=== PATIENT | male | born 1950 | race Caucasian/White ===

== ENCOUNTER 2016-04-10 08:50 | Inpatient (IN) | payer BC, OTHER ==
[~2016-04-10] VITALS: Ht 180.3 cm; Wt 78.0 kg
[2016-04-10] MEDS ORDERED: SODIUM CHLORIDE 0.9% 1000ML 1,000 ML IV STA (09:30)
[2016-04-10] MEDS ORDERED: KETOROLAC TROMETHAMINE 30 MG/ML VIAL IV STA (09:30)
[2016-04-10] MEDS ORDERED: ACETAMINOPHEN 500 MG TAB PO STA (09:30)
[2016-04-10 09:44] LABS: BASO % 0.3 %; BASO ABS # 0.01 K/uL (0-0.2); COMPLETE YES; HEMATOCRIT 42.9 % (42-52); LYMPH % 17.3 %; LYMPH ABS # 0.65 K/uL (1.2-3.4); MEAN CELL VOLUME 88.3 fL (80-100); MEAN CORPUSCULAR HEMOGLOBIN 31.3 pg (25-34); MEAN CORPUSCULAR HGB CONC 35.4 g/dl (32-36); MEAN PLATELET VOLUME 11.6 fL (7.4-10.4); MONO % 17.1 %; NEUT % 65.3 %; PLATELET COUNT 134 K/uL (130-400); RED BLOOD COUNT 4.86 M/uL (4.7-6.1); WHITE BLOOD COUNT 3.75 K/uL (4.8-10.8)
[2016-04-10 09:52] LABS: ALT/SGPT 106 U/L (12-78); AST/SGOT 47 U/L (15-37); BLOOD UREA NITROGEN 14 mg/dl (7-18); BUN/CREATININE RATIO 12.3 (10-20); CALCIUM 9.1 mg/dl (8.5-10.1); CARBON DIOXIDE 25 mmol/L (21-32); CHLORIDE 103 mmol/L (98-107); GLUCOSE 92 mg/dl (70-99); POTASSIUM 3.7 mmol/L (3.5-5.1); SODIUM 139 mmol/L (136-145)
[2016-04-10 10:01] LABS: ALKALINE PHOSPHATASE 73 U/L (45-117)
--- NOTE | 2016-04-10 10:14 | DIAGNOSTIC IMAGING REPORT ---
TWO VIEW CHEST CLINICAL HISTORY: Cough and fever. Flulike symptoms. FINDINGS: PA and lateral chest radiographs are compared to study dated 02/15/2013. The cardiomediastinal silhouette is unremarkable. Mild chronic residual thickening is unchanged. The lungs and pleural spaces are clear. There is no pneumothorax. The bony thorax appears intact. IMPRESSION: No acute cardiopulmonary abnormality. Electronically signed by: Brandon Rodriguez M.D. 04/10/2016 10:12 AM
[2016-04-10] MEDS ORDERED: HEPARIN 25000 UNIT/500 ML D5W ONE (10:31)
[2016-04-10] MEDS ORDERED: HEPARIN SOD 5000 UNIT/0.5 ML CARP ONE (10:32)
[2016-04-10] MEDS ORDERED: ASPIRIN 81 MG CHEW PO STA (10:41)
[2016-04-10] MEDS ORDERED: METOPROLOL TARTRATE 1 MG/ML VIAL IV PRN (10:45)
[2016-04-10] MEDS ORDERED: MAGNESIUM HYDROXIDE SUSP 30 ML UDC PO PRN (10:45)
[2016-04-10] MEDS ORDERED: MoRPHine SULFATE 2 MG/ML CARP IV PRN (10:45)
[2016-04-10] MEDS ORDERED: ACETAMINOPHEN 325 MG TAB PO PRN (10:45)
[2016-04-10] MEDS ORDERED: ALUMINUM/MAGNESIUM/SIMETH (MAALOX MAX) 30 ML UDC PO PRN (10:45)
[2016-04-10] MEDS ORDERED: ONDANSETRON INJ 2 MG/ML 2 ML VIAL IV PRN (10:45)
[2016-04-10 11:01] VITALS: O2SAT 99; Ht 180.3 cm; Wt 78.0 kg
[2016-04-10 11:06] LABS: PARTIAL THROMBOPLASTIN RATIO 1.5; PROTHROMBIN TIME (PATIENT) 10.8 SECONDS (9.0-12.0)
[2016-04-10 11:30] VITALS: O2SAT 96
[2016-04-10 12:18] LABS: MAGNESIUM 2.4 mg/dl (1.8-2.4); THYROID STIMULATING HORMONE 1.1 uIu/ml (0.300-4.500)
[2016-04-10 12:30] VITALS: BP 137/87; PULSE 88; TEMP 36.6; O2SAT 95
--- NOTE | 2016-04-10 13:04 | HISTORY & PHYSICAL EXAMINATION ---
DATE OF ADMISSION: 04/10/2016 CHIEF COMPLAINT: Weakness. HISTORY OF PRESENT ILLNESS: This is a 65-year-old male who presents to Emergency Room with flu-like symptoms that started about 4 days ago. The patient stated that on he had ear pain and cough. He was seen by primary care physician at [facility] on Monday. He was told that he has fluids in his ears and congestion in his sinuses and he was given Augmentin and decongestant. He denies having fever. Since Monday, his symptoms were getting worse. He was progressively weaker and achy. He continues to have cough which is nonproductive and he also has some chills and checked his temperature yesterday which was 101.0 orally. He took a dose of Tylenol. He reported diarrhea and had 3 loose bowels in the last 4 hours since this morning. He did not get a flu shot this year. He was around sick contacts. The patient also states that intermittently he had fluttering sensation in his chest and he thought he had some palpitations in the last few days. It was radiating to his left arm with associated dizziness. He also noticed that it was worse with exertion. He felt that this fluttering sensation goes away after he lays down and rests for about 1 hour. When he had seen the doctor, he did not discuss this finding. He has no history of heart disease, hypertension, diabetes, dyslipidemia, strokes. His blood pressure was little elevated when he came in but he was never put on any blood pressure medicines. REVIEW OF SYSTEMS: Negative except as above. Ten out of 14 systems were reviewed. PAST MEDICAL HISTORY: Abdominal pain, cervical disc herniation, crush injury of the finger, hyperlipidemia, kidney stones, appendectomy, bowel resection. FAMILY HISTORY: No coronary artery disease, diabetes, cancer. He does not take any medicines. SOCIAL HISTORY: Does not smoke, does not drink, and lives with . ALLERGIES: No allergies. PHYSICAL EXAMINATION: VITAL SIGNS: Temperature 37.0, pulse 108, respirations 16, blood pressure 143/86, pulse ox 98 on room air. GENERAL: Not in acute distress. HEENT: Normocephalic, atraumatic. PERRLA, EOMI. Mouth moist. Pharynx is erythematous. NECK: Tonsils are not enlarged. CHEST: Clear to auscultation bilateral. No wheezes, no rhonchi. HEART: Irregularly irregular heart rhythm, rate tachycardia. No murmurs, no gallops. ABDOMEN: Soft, nontender, nondistended. Bowel sounds present bilateral. EXTREMITIES: No clubbing, cyanosis, edema. NEUROLOGICAL: Alert, oriented x3. Motor sensory normal. Deep tendon reflexes 2+ bilateral. LYMPHATIC: No pathological lymphadenopathy. SKIN: No rash, no jaundice. MUSCULOSKELETAL: Full range of motion in all 4 extremities, no cyanosis or edema. DIAGNOSTIC INTERPRETATION: Chest x-ray normal. LABS: White count of 3.7, hemoglobin of 15.2, platelets 134. BNP is completely normal, albumin of 3.6, lipase 172. However, his troponin is 0.078 with CK-MB of less than 0.5 and AST of 47, ALT of 106. EKG: Atrial fibrillation, 106 beats per minute, no ST-T wave changes. ASSESSMENT AND PLAN: This is a 65-year-old male who comes with weakness. 1. New paroxysmal atrial fibrillation with CHADS score 0-1. Start patient on aspirin, metoprolol 25 b.i.d. as well as IV Lopressor 2.5 mg IV every 4 hours for heart rate above 100. Check echo, check TSH, check hemoglobin A1c. Admit to telemetry. Trend cardiac enzymes to rule out acute coronary syndrome. 2. Viral syndrome with possible bronchitis. Place patient on amoxicillin. Chest x-ray is clear for any pneumonia. Tylenol p.r.n. fever. 3. Deep venous thrombosis and gastrointestinal prophylaxis. The patient is a full code. TIME SPENT ON DOING THIS ADMISSION: 40 minutes.
[2016-04-10] MEDS: SODIUM CHLORIDE 0.9% 1000ML 1,000 ML IV SCH (13:32)
[2016-04-10] MEDS: METOPROLOL TARTRATE 25 MG TAB PO SCH ×2 (14:07→22:10)
[2016-04-10] MEDS: AMOXICILLIN 500 MG CAP PO SCH ×2 (14:07→22:11)
[2016-04-10 15:51] VITALS: BP 89/55; PULSE 71; TEMP 36.6; O2SAT 96
--- NOTE | 2016-04-10 17:00 | EMERGENCY ROOM VISIT NOTE ---
History First contact with patient: :06 Chief Complaint: FLU LIKE SX Stated Complaint: FLU History of Present Illness Patient is an otherwise healthy 38-year-old white male who presents to emergency department for evaluation of flulike symptoms over the last 4 days. He states is a symptoms started last with ear pain and a cough. He was seen by his primary care provider at [facility] on Monday. He was told he had "fluid in his ears, and congestion in his sinuses" they thought he was coming down with the flu, however placed him on Augmentin and a decongestant. He did not have a fever at that time. Since his appointment on Monday, he states that he is "getting worse. He feels weak and generally achy. He continues to have a cough which is nonproductive. He has been chilled and just started checking his temperature yesterday and noted it to be 101F orally. He took a dose of Tylenol for this. He now reports diarrhea, and has had 3 loose, watery bowel movements without blood in the 4 hours that he has been awake since this morning. He did not get a flu shot this year. He has been visiting family members who have been hospitalized recently. Patient also notes that for the last 2-3 weeks he has intermittently been experiencing fluttering in his chest with pain radiating into his left arm with associated dizziness. This can occur at rest or with exertion. He typically goes away after he lays down and rests for about an hour. He did not discuss this with his doctor when he was at the office previously. He denies a prior history of heart disease, heart murmur, hypertension or dyslipidemia. He does note that his blood pressure was slightly elevated when he was in the doctor's office, but they told him likely due to his illness. He denies any associated nausea or vomiting. No radiation of the pain to the neck or back. Review of Systems Review of systems as per HPI. All other systems reviewed were negative. 10 systems reviewed. Past Medical/Surgical History Medical Problems: (1) Abdominal pain of unknown etiology (2) Afib (3) Cervical disc herniation (4) Crush injury to finger (5) Finger laceration (6) Hyperlipidemia Nec/Nos (7) Kidney stones Surgical Problems: (1) History of appendectomy (2) History of bowel resection (3) Post-operative state Electronic medical records are reviewed and summarized as above/below. See Problem List. Family History Patient reports no known family medical history. Social History Smoking Status: Never Smoker Alcohol Use: none Drug Use: none Marital Status: Housing Status: lives with significant other Occupation Status: retired Current/Historical Medications No Active Prescriptions or Reported Meds Allergies Coded Allergies: No Known Allergies (Unverified , 04/10/16) Physical Exam Vital Signs Date Time Temp Pulse Resp B/P Pulse Ox O2 Delivery O2 Flow Rate FiO2 04/10/16 10:01 108 04/10/16 09:56 103 16 143/86 99 04/10/16 09:00 37.0 102 18 112/63 97 Room Air Physical Exam CONSTITUTIONAL: Patient is an ill although nontoxic-appearing 65-year-old white male who is awake and alert and in no acute distress. Temperature is 37C orally. Blood pressure 121/63, heart rate 102. EYES: Pupils equal, round, reactive to light and accommodation. EOMs intact without nystagmus. Sclera are anicteric. ENT: Tympanic membranes intact, with normal landmarks. External canals are clear. Oral and nasopharynx are clear. Mucous membranes are moist, no lesions , tongue and gums appear normal. NECK: No bruits auscultated. Supple without lymphadenopathy. No thyromegaly. No meningeal signs. Full active range of motion without discomfort. CARDIOVASCULAR: Regularly irregular, suspected soft KULDEEP. No carotid bruits auscultated. No JVD. Peripheral pulses easy to palpable. RESPIRATORY: Breath sounds equal and clear to auscultation without wheezes, rales, or rhonchi heard. Full and equal chest expansion without accessory muscle use or retractions. GI: Bowel sounds are present. Abdomen is soft, nontender, nondistended. No organomegaly. No pulsatile masses. No guarding or rebound. MUSCULOSKELETAL: Full range of motion of extremities x 4 with good strength. No cyanosis, edema, joint tenderness or swelling. No deformity. INTEGUMENTARY: No lesions or rash, normal skin turgor. NEUROLOGICAL: Alert, oriented, and cooperative. Cranial nerves, sensation and strength grossly intact. Pupils round, equal, and react to light, EOMs are full. LYMPH: No lymphadenopathy. Medical Decision & Procedures ER Provider Diagnostic Interpretation: TWO VIEW CHEST CLINICAL HISTORY: Cough and fever. Flulike symptoms. FINDINGS: PA and lateral chest radiographs are compared to study dated 02/15/2013. The cardiomediastinal silhouette is unremarkable. Mild chronic residual thickening is unchanged. The lungs and pleural spaces are clear. There is no pneumothorax. The bony thorax appears intact. IMPRESSION: No acute cardiopulmonary abnormality. Laboratory Results 04/10/16 09:12 Red Blood Count 4.86, Mean Corpuscular Volume 88.3, Mean Corpuscular Hemoglobin 31.3, Mean Corpuscular Hemoglobin Concent 35.4, Mean Platelet Volume 11.6, Neutrophils (%) (Auto) 65.3, Lymphocytes (%) (Auto) 17.3, Monocytes (%) (Auto) 17.1, Eosinophils (%) (Auto) 0.0, Basophils (%) (Auto) 0.3, Neutrophils # (Auto ) 2.45, Lymphocytes # (Auto) 0.65, Monocytes # (Auto) 0.64, Eosinophils # (Auto ) 0.00, Basophils # (Auto) 0.01 04/10/16 09:12 Test 04/10/16 09:08 04/10/16 09:12 04/10/16 09:30 Influenza Type A Antigen Neg for Influ A (NEG) Influenza Type B Antigen Neg for Influ B (NEG) White Blood Count 3.75 K/uL (4.8-10.8) Red Blood Count 4.86 M/uL (4.7-6.1) Hemoglobin 15.2 g/dL (14.0-18.0) Hematocrit 42.9 % (42-52) Mean Corpuscular Volume 88.3 fL (80-100) Mean Corpuscular Hemoglobin 31.3 pg (25-34) Mean Corpuscular Hemoglobin Concent 35.4 g/dl (32-36) Platelet Count 134 K/uL (130-400) Mean Platelet Volume 11.6 fL (7.4-10.4) Neutrophils (%) (Auto) 65.3 % Lymphocytes (%) (Auto) 17.3 % Monocytes (%) (Auto) 17.1 % Eosinophils (%) (Auto) 0.0 % Basophils (%) (Auto) 0.3 % Neutrophils # (Auto) 2.45 K/uL (1.4-6.5) Lymphocytes # (Auto) 0.65 K/uL (1.2-3.4) Monocytes # (Auto) 0.64 K/uL (0.11-0.59) Eosinophils # (Auto) 0.00 K/uL (0-0.5) Basophils # (Auto) 0.01 K/uL (0-0.2) RDW Standard Deviation 40.4 fL (36.4-46.3) RDW Coefficient of Variation 12.6 % (11.5-14.5) Immature Granulocyte % (Auto) 0.0 % Immature Granulocyte # (Auto) 0.00 K/uL (0.00-0.02) Prothrombin Time 10.8 SECONDS (9.0-12.0) Prothromb Time International Ratio 1.0 (0.9-1.1) Activated Partial Thromboplast Time 40.1 SECONDS (21.0-31.0) Partial Thromboplastin Ratio 1.5 Anion Gap 11.0 mmol/L (3-11) Est Creatinine Clear Calc Drug Dose 74.3 ml/min Estimated GFR () 82.4 Estimated GFR (Non- 71.1 BUN/Creatinine Ratio 12.3 (10-20) Calcium Level 9.1 mg/dl (8.5-10.1) Magnesium Level 2.4 mg/dl (1.8-2.4) Total Bilirubin 0.4 mg/dl (0.2-1) Aspartate Amino Transf (AST/SGOT) 47 U/L (15-37) Alanine Aminotransferase (ALT/SGPT) 106 U/L (12-78) Alkaline Phosphatase 73 U/L (45-117) Total Creatine Kinase 97 U/L (39-308) Creatine Kinase MB < 0.5 ng/ml (0.5-3.6) Troponin I 0.078 ng/ml (0-0.045) Total Protein 7.1 gm/dl (6.4-8.2) Albumin 3.6 gm/dl (3.4-5.0) Globulin 3.5 gm/dl (2.5-4.0) Albumin/Globulin Ratio 1.0 (0.9-2) Lipase 172 U/L (73-393) Thyroid Stimulating Hormone (TSH) 1.100 uIu/ml (0.300-4.500) Hepatitis C Antibody Screen NEG (NEG) Creatine Kinase MB Ratio (0-3.0) Medications Administered Medications (Trade) Dose Ordered Sig/[facility] Route Start Time Stop Time Status Last Admin Dose Admin Sodium Chloride (Nss 1000ml) 1,000 ml @ 999 mls/hr Q1H1M STAT IV 04/10/16 09:30 04/10/16 10:30 DC 04/10/16 09:30 999 MLS/HR Ketorolac Tromethamine (Toradol Inj) 30 mg NOW STAT IV 04/10/16 09:30 04/10/16 09:35 DC 04/10/16 09:52 30 MG Acetaminophen (Tylenol Tab) 1,000 mg NOW STAT PO 04/10/16 09:30 04/10/16 09:35 DC 04/10/16 09:52 1,000 MG Heparin Sodium/ Dextrose (Heparin 25,000 Unit/500ml D5W) 25,000 unit STK-MED ONCE .ROUTE 04/10/16 10:31 04/10/16 10:32 DC 04/10/16 10:57 25,000 UNIT Heparin Sodium (Porcine) 5000 unit 5,000 unit STK-MED ONCE .ROUTE 04/10/16 10:32 04/10/16 10:33 DC 04/10/16 10:56 5,000 UNIT Sodium Chloride (Nss 1000ml) 1,000 ml @ 75 mls/hr [id number] IV 04/10/16 10:41 05/10/16 10:40 04/10/16 13:32 75 MLS/HR Aspirin (Aspirin Chew) 324 mg NOW STAT PO 04/10/16 10:41 04/10/16 10:55 DC 04/10/16 11:59 324 MG ECG Indication: chest pain, palpitations Rate (beats per minute): 106 Rhythm: atrial fibrillation Change: New onset Afib ED Course The patient was seen and evaluated as above. Old records are reviewed. He presents the emergency department for evaluation of a febrile upper respiratory illness that started about 4 days ago. He notes progressively worsening weakness, body and muscle aches, and diarrhea. He also notes a 2-3 week history of some fluttering in the left side of his chest with pain into his left arm and dizziness. IV access was obtained. The patient was placed on a quality assurance monitor body and EKG was performed. He was hydrated with normal saline solution and medicated with Toradol 30 mg IV and acetaminophen 1 g by mouth. Laboratory studies were performed including influenza swab, cardiac enzymes, lipase, CBC with differential, and CMP. Patient's EKG noted a atrial fibrillation at 106 beats per minute. This A. fib is new on review of his prior EKGs. His rate was controlled, and he was hemodynamically stable and did not have any chest pain while in the emergency department. Laboratory studies revealed a white count of 3700. Electrolytes are within normal limits. He has slight elevation of his AST and ALT, with normal remaining liver functions. CK and CK-MB are normal, troponin is elevated at 0.078. Lipase is not indicative of acute pancreatitis. Influenza swab was negative. Chest x-ray did not show any evidence for focal consolidation or pneumonia. All laboratory and diagnostic imaging studies were reviewed with attending physician. He presents to the emergency department for evaluation of a febrile , influenza-like syndrome and was found to be in a new onset A. fib with elevated troponin. Differential diagnoses entertained include viral illness, pneumonia, bronchitis, CHF, ACS, acute IN, unstable angina, unstable arrhythmia , among others. [facility] He was ordered heparin in the emergency department, but this was canceled by the admitting service. Medical Decision See ED Course. Impression Primary Impression: New onset atrial fibrillation Additional Impressions: Elevated troponin, Influenza-like illness Departure Information Prescriptions No Active Prescriptions or Reported Meds Referrals Marcel Houston M.D. (PCP) Patient Instructions A Signature Page, My [facility]
[2016-04-10 19:17] VITALS: BP 128/94; PULSE 83; TEMP 36.9; O2SAT 95
[2016-04-10 23:39] VITALS: BP 125/81; PULSE 70; TEMP 37; O2SAT 98
[2016-04-11] MEDS: SODIUM CHLORIDE 0.9% 1000ML 1,000 ML IV SCH (02:18)
[2016-04-11 04:08] VITALS: BP 111/67; PULSE 92; TEMP 36.7; O2SAT 95
[2016-04-11 07:04] LABS: BASO % 0.3 %; BASO ABS # 0.01 K/uL (0-0.2); COMPLETE YES; EOS % 0.6 %; HEMATOCRIT 45.1 % (42-52); LYMPH % 38.9 %; LYMPH ABS # 1.32 K/uL (1.2-3.4); MEAN CELL VOLUME 88.6 fL (80-100); MEAN CORPUSCULAR HEMOGLOBIN 30.5 pg (25-34); MEAN CORPUSCULAR HGB CONC 34.4 g/dl (32-36); MEAN PLATELET VOLUME 11.3 fL (7.4-10.4); NEUT % 45.2 %; PLATELET COUNT 135 K/uL (130-400); RED BLOOD COUNT 5.09 M/uL (4.7-6.1); WHITE BLOOD COUNT 3.39 K/uL (4.8-10.8)
[2016-04-11 07:15] LABS: PARTIAL THROMBOPLASTIN RATIO 1.5
[2016-04-11 07:40] LABS: BUN/CREATININE RATIO 13.2 (10-20); CALCIUM 8.5 mg/dl (8.5-10.1); POTASSIUM 3.9 mmol/L (3.5-5.1)
[2016-04-11 07:46] VITALS: BP_SYST 107; BP_SYST 131; BP_DIAS 100; BP_DIAS 87; PULSE 69; TEMP 36.8; O2SAT 95
[2016-04-11 08:07] LABS: ESTIMATED AVERAGE GLUCOSE 111 mg/dl; HA1C FLAG Normal (Normal)
[2016-04-11] MEDS: AMOXICILLIN 500 MG CAP PO SCH (08:38)
[2016-04-11] MEDS: METOPROLOL TARTRATE 25 MG TAB PO SCH (08:39)
[2016-04-11] MEDS ORDERED: ASPIRIN 81 MG ECTAB PO SCH (09:00)
[2016-04-11] MEDS ORDERED: LPR25 PO (10:27)
[2016-04-11] MEDS ORDERED: AMX500 PO (10:27)
[2016-04-11] MEDS ORDERED: ASPEC81 PO (10:27)
--- NOTE | 2016-04-11 10:29 | Discharge Instructions ---
Discharge Instructions Admission Reason for Admission: AFIB Discharge Discharge Diagnosis / Problem: afib, bronchitis Discharge Goals Goal(s): Increase independence, Improve disease control, Diagnostic testing, Therapeutic intervention Activity Recommendations Activity Limitations: resume your previous activity Lifting Limitations: until after follow-up appointment Exercise/Sports Limitations: as tolerated Shower/Bathe: no limitations . Instructions / Follow-Up Instructions / Follow-Up start aspirin and metoprolol finish oral antibiotics eat yogurts three times a day to prevent diarrhea associated with antibiotics Current Hospital Diet Patient's current hospital diet: AHA Diet (Heart Healthy) Discharge Diet Recommended Diet: Regular Diet Pending Studies Studies pending at discharge: no Laboratory Results Hemoglobin A1c Test 04/10/16 09:12 Range/Units Estimated Average Glucose 111 mg/dl Hemoglobin A1c 5.5 4.5-5.6 % Medical Emergencies . Who to Call and When: Medical Emergencies: If at any time you feel your situation is an emergency, please call 911 immediately. . Non-Emergent Contact Non-Emergency issues call your: Primary Care Provider . Past History Medical & Surgical History: (1) Bronchitis (2) Afib . "Provider Documentation" section prepared by Brandon Bell. VTE Core Measure Inpt VTE Proph given/why not?: Unfractionated heparin SQ
--- NOTE | 2016-04-11 10:34 | Discharge Summary ---
Discharge Summary Admission Date: Apr 10, 2016 at 10:44 Discharge Date: Apr 11, 2016 Discharge Disposition: Home Principal Diagnosis: afib, brinchitis Problems/Secondary Diagnoses: (1) Kidney stones Status: Chronic Immunizations: Have You Had Influenza Vaccine: No History of Tetanus Vaccine?: UTD History of Pneumococcal: No History of Hepatitis B Vaccine: No Medication Reconciliation New Medications: Amoxicillin (Amoxicillin) 500 Mg Cap 500 MG PO TID, #15 CAP Aspirin (Aspirin EC Low Dose) 81 Mg Ectab 81 MG PO QAM, #90 TAB Metoprolol Tartrate (Lopressor) 25 Mg Tab 25 MG PO BID, #120 TAB 3 Refills Referrals At Discharge Follow up Referrals: Physician Referral - Within 2 Weeks with Marcel Houston M.D. Discharge Exam Review of Systems: Constitutional: No chills ENT: No unusual epistaxis Respiratory: No sputum Cardiovascular: No orthopnea Abdomen: No nausea Genitourinary - Male: No hematuria, No urinary frequency Neurologic: No memory loss Endocrine: No fatigue Physical Exam: General Appearance: WD/WN, no apparent distress Eyes: normal inspection, EOMI ENT: hearing grossly normal, pharynx normal Neck: supple, no JVD Respiratory/Chest: chest non-tender, normal breath sounds Cardiovascular: no edema, no gallop Abdomen / GI: non tender, no organomegaly Extremities: normal inspection, no calf tenderness Neurologic/Psychiatric: no motor/sensory deficits, alert, normal mood/affect Skin: normal color, warm/dry Hospital Course A 65 yo male comes with cough and palpitations afib on EKG with mild troponin elevation noticed He converted to NSR this am with po metoprolol his CHADs is 0-1, d/c on ASA 81 mg daily ECHO is pending on discharge f/u PCP 2 weeks, f/u cards in 3-4 weeks if needed Total Time Spent: Greater than 30 minutes This includes examination of the patient, discharge planning, medication reconciliation, and communication with other providers. Discharge Instructions Please refer to the electronic Patient Visit Report (Discharge Instructions) for additional information. Additional Copies To Marcel Houston M.D.
[2016-04-11 10:43] VITALS: BP 131/87; PULSE 69; TEMP 36.8; O2SAT 95
--- NOTE | 2016-04-11 16:35 | ECHOCARDIOGRAM REPORT ---
*NOTICE TO RECEIVING REPUBLICAN AGENCY This information is strictly Confidential and protected under [place] law. [place] law prohibits you from making any further disclosure of this information unless further disclosure is expressly permitted by the written consent of the person to whom it pertains or is authorized by law. A general authorization for the release of medical or other information is not sufficient for this purpose. Hospital accepts no responsibility if the information is made available to any other person, INCLUDING THE PATIENT. Interpretation Summary * Name: MIRIAM DENNY Study Date: 04/11/2016 07:30 AM BP: 131/87 mmHg * Patient Location: [id number].[id number]\E208\S\1 HR: 69 * : 1950 (M/d/yyyy) Gender: Male Height: 72 in * Age: 65 yrs Ethnicity: CA Weight: 174 lb * Ordering Physician: Brandon Bell * Referring Physician: Self, Referred * Performed By: Lilly Rodriguez RCS * * Reason For Study: A-FIB * BSA: 2.0 m2 * -- Conclusions -- * 1. Normal LV size, borderline concentric LVH. * 2. Normal LV systolic function. LVEF 60-65%. No regional wall motion abnormalities. * 3. Normal RV size and function. * 4. No significant valvular pathology * 5. Diastolic dysfunction. * 6. Normal estimated RA and PA pressures. * 7. Compared with prior study on 02/28/2012: No significant changes. Procedure Details * A complete two-dimensional transthoracic echocardiogram was performed (2D, M-mode, Doppler and color flow Doppler). Left Ventricle * The left ventricle is grossly normal size. * There is borderline concentric left ventricular hypertrophy. * Ejection Fraction = 60-65%. * Diastolic dysfunction * No regional wall motion abnormalities noted. Right Ventricle * The right ventricle is grossly normal size. * The right ventricular systolic function is normal as assessed by tricuspid annular plane systolic excursion (TAPSE) (normal >1.5 cm). Atria * The left atrial size is normal. * The right atrium is borderline dilated. * No ASD detected; PFO is not assessed. Mitral Valve * The mitral valve is grossly normal. * There is trace mitral regurgitation. Tricuspid Valve * The tricuspid valve is not well visualized, but is grossly normal. * There is trace tricuspid regurgitation. Aortic Valve * The aortic valve opens well. * The aortic valve is tricuspid. The leaflet thickness if normal. There is no aortic stenosis, and no significant insufficiency. * No hemodynamically significant valvular aortic stenosis. * There is no significant aortic regurgitation. Pulmonic Valve * The pulmonary valve is inadequately visualized, but the Doppler data is adequate for interpretation. * Trace pulmonic valvular regurgitation. Great Vessels * The aortic root and proximal ascending aorta are normal sized. * No Doppler or imaging evidence of an aortic coarctation. Pericardium/Pleural * There is no pericardial effusion. Great Vessels * There is no evidence of pulmonary hypertension. The PA systolic pressure is less than 36 mmHg. * Normal inferior vena cava size and collapsability with sniff indicates a normal right atrial pressure of 3 mmHg MMode 2D Measurements and Calculations IVSd 1.0 cm IVSs 1.4 cm LVIDd 4.5 cm LVIDs 3.1 cm LVPWd 1.1 cm LVPWs 1.4 cm IVS/LVPW 0.94 FS 29.8 % EDV(Teich) 90.2 ml ESV(Teich) 38.7 ml EF(Teich) 57.1 % EDV(cubed) 88.3 ml ESV(cubed) 30.6 ml EF(cubed) 65.4 % % IVS thick 31.9 % % LVPW thick 28.1 % LV mass(C)d 167.4 grams LV mass(C)dI 83.3 grams/m\S\2 LV mass(C)s 148.5 grams LV mass(C)sI 73.9 grams/m\S\2 CO(Teich) 5.6 l/min CI(Teich) 2.8 l/min/m\S\2 SV(Teich) 51.5 ml SI(Teich) 25.7 ml/m\S\2 CO(cubed) 6.3 l/min CI(cubed) 3.1 l/min/m\S\2 SV(cubed) 57.8 ml SI(cubed) 28.8 ml/m\S\2 Ao root diam 3.8 cm Ao root area 11.1 cm\S\2 ACS 2.1 cm LA dimension 3.6 cm LA/Ao 0.97 LVAd ap4 26.9 cm\S\2 LVLd ap4 7.7 cm EDV(MOD-sp4) 77.0 ml LVAs ap4 14.6 cm\S\2 LVLs ap4 6.2 cm ESV(MOD-sp4) 31.0 ml EF(MOD-sp4) 59.7 % LVAd ap2 28.1 cm\S\2 LVLd ap2 8.4 cm EDV(MOD-sp2) 80.0 ml LVAs ap2 15.8 cm\S\2 LVLs ap2 6.8 cm ESV(MOD-sp2) 32.0 ml EF(MOD-sp2) 60.0 % CO(MOD-sp4) 5.0 l/min CI(MOD-sp4) 2.5 l/min/m\S\2 SV(MOD-sp4) 46.0 ml SI(MOD-sp4) 22.9 ml/m\S\2 CO(MOD-sp2) 5.2 l/min CI(MOD-sp2) 2.6 l/min/m\S\2 SV(MOD-sp2) 48.0 ml SI(MOD-sp2) 23.9 ml/m\S\2 Doppler Measurements and Calculations MV E max consuelo 60.3 cm/sec MV A max consuelo 25.0 cm/sec MV E/A 2.4 MV P1/2t max consuelo 74.7 cm/sec MV P1/2t 60.2 msec MVA(P1/2t) 3.7 cm\S\2 MV dec slope 363.7 cm/sec\S\2 MV dec time 0.18 sec Ao V2 max 100.3 cm/sec Ao max PG 4.1 mmHg Ao max PG (full) 2.2 mmHg LV V1 max PG 1.9 mmHg LV V1 max 67.0 cm/sec PA V2 max 96.6 cm/sec PA max PG 3.8 mmHg PI max consuelo 161.8 cm/sec PI max PG 10.5 mmHg PI dec slope 168.9 cm/sec\S\2 PI P1/2t 280.6 msec TR max consuelo 198.0 cm/sec
[2017-04-07] MEDS ORDERED: OXYC1TAB3 PO (14:04)
== END 2016-04-11 11:23 | disposition home or self-care (01) | DRG 310 ==
LOC: ENRESERVTM → ENRESERVDT → C.EDB 08:53 → C.2E 10:44
PROVIDERS: ADMIT Hospitalist; ATTEND Hospitalist
DX: I48.0 Paroxysmal atrial fibrillation (principal); E78.5 Hyperlipidemia, unspecified; N20.0 Calculus of kidney; J40 Bronchitis, not specified as acute or chronic

== ENCOUNTER 2017-04-07 11:32 | Emergency (ER) | payer BC ==
[~2017-04-07] VITALS: Ht 180.3 cm; Wt 83.0 kg
[~2017-04-07 11:32] MED LIST: AMX500 PO; ASPI-320 PO; LPR25 PO
[2017-04-07 11:37] VITALS: TEMP 36.7; Ht 180.3 cm; Wt 83.0 kg
[2017-04-07] MEDS ORDERED: LIDOCAINE 1% BUFFERED INJ 20 ML VIAL INFIL STA (11:52)
[2017-04-07] MEDS ORDERED: BUPIVACAINE 0.5 % 5 MG/1 ML MPF 30ML VIAL INFIL STA (11:52)
[2017-04-07] MEDS ORDERED: AMOX500C3 PO (11:53)
--- NOTE | 2017-04-07 12:33 | DIAGNOSTIC IMAGING REPORT ---
LEFT THIRD FINGER 3 VIEWS CLINICAL HISTORY: Third finger laceration. FINDINGS: 3 views of the left third finger are correlated with left hand radiographs dated 06/30/2015. The skeletal structures are well mineralized. No fracture is seen. Mild osteoarthritic change is present at the distal interphalangeal joint. The joint spaces of the third finger are otherwise maintained. Soft tissue edema is present in the third digit, with a cutaneous injury suggested distally. No radiodense foreign body is seen. IMPRESSION: Soft tissue edema and cutaneous injury with no acute bony abnormality seen in the left third finger. Electronically signed by: Brandon Rodriguez M.D. 04/07/2017 12:32 PM Dictated Date/Time: 04/07/2017 12:31 PM
[2017-04-07] MEDS ORDERED: CEPH500C PO (14:02)
[2017-04-07] MEDS ORDERED: OXYC-90 PO (14:04)
--- NOTE | 2017-04-07 14:05 | EMERGENCY ROOM VISIT NOTE ---
ED Visit Note First contact with patient: 11:51 CHIEF COMPLAINT: Finger laceration HISTORY OF PRESENT ILLNESS: This 66-year-old, right hand dominant male patient presents to the emergency department, ambulatory, after cutting the left index and middle fingers on a table saw. The patient was lining up the wood to go through the table saw, when he accidentally bumped the on/off switch. He turned. On, and his finger got caught in the saw blade. The bleeding has not stopped. Denies weakness or numbness of the finger. The patient has full range of motion of the fingers. The patient rates the pain as severe and 10/10. The patient denies any other injuries. The patient's tetanus shot is up to date. REVIEW OF SYSTEMS: A 6 system review of systems was completed with positives and pertinent negatives listed in the HPI. ALLERGIES: Augmentin MEDICATIONS: Metoprolol, aspirin PMH: Hypertension SOCIAL HISTORY: The patient lives locally with family. He denies drug, alcohol , tobacco use. PHYSICAL EXAM: Vital Signs: Reviewed Nurse's notes, vital signs stable. GENERAL : This is a 66-year-old white male, in no acute distress, well developed, well nourished. SKIN: There is a 2 cm long irregularly-shaped laceration on the anterior/medial aspect of the left middle finger. There is a 1 cm long more superficial laceration on the distal end of the right index finger, through the nail, and affecting the distal aspect of the nailbed. The edges of both wounds gape apart with traction. There is no foreign material in the wound and it looks clean. There is moderate bleeding. No deep structures such as tendons, bones, or significant blood vessels are seen in the base of the wound. Extension and flexion of the finger is full and strong. Full range of motion of the wrist and other fingers. Capillary refill less than 2 seconds. Normal sensation to light and sharp touch. RADIOLOGY: LEFT THIRD FINGER 3 VIEWS CLINICAL HISTORY: Third finger laceration. FINDINGS: 3 views of the left third finger are correlated with left hand radiographs dated 06/30/2015. The skeletal structures are well mineralized. No fracture is seen. Mild osteoarthritic change is present at the distal interphalangeal joint. The joint spaces of the third finger are otherwise maintained. Soft tissue edema is present in the third digit, with a cutaneous injury suggested distally. No radiodense foreign body is seen. IMPRESSION: Soft tissue edema and cutaneous injury with no acute bony abnormality seen in the left third finger. Electronically signed by: Brandon Rodriguez M.D. 04/07/2017 12:32 PM Dictated Date/Time: 04/07/2017 12:31 PM EMERGENCY DEPARTMENT COURSE: I examined the patient. Verbal consent was obtained to perform the procedure. Using sterile technique the wound was cleansed with Betadine. 10 ml of 1% buffered lidocaine with 0.5% Bupivacaine was used to perform a digital block of the 2nd and 3rd digits of the left hand to anesthetize the patient. The area was sterilely draped. Once the patient was anesthetized, the wound was copiously irrigated under pressure with sterile saline. The patient did complain of some pain, despite anesthesia, so the wounds were locally anesthetized prior to suturing. The wounds were explored and there were no deep structures injured. The laceration on the index finger was repaired using 4 simple interrupted 5-0 nylon sutures and 1 subcuticular 5- 0 Vicryl suture on the nailbed. The laceration on the middle finger was repaired using 14 simple interrupted 5-0 nylon sutures. The patient tolerated the procedure well. Hemostasis was achieved. The area was cleaned with sterile saline and dressed with bacitracin ointment and bandage. The patient was discharged home in good condition. I did stress the need for close follow- up with his PCP. I attest that I have personally reviewed the patient's current medication list. Patient was found to have normal blood pressure on screening and does not require follow-up. DIFFERENTIAL DIAGNOSIS: Laceration, fracture, contusion, open fracture, abrasion , avulsion, and others DIAGNOSIS: Finger laceration of the left second and third digits Problem List Medical Problems: (1) Abdominal pain of unknown etiology Status: Resolved (2) Cervical disc herniation Status: Resolved (3) Crush injury to finger Status: Resolved (4) Finger laceration Status: Resolved (5) Hyperlipidemia Nec/Nos Status: Resolved (6) Kidney stones Status: Chronic Surgical Problems: (1) History of appendectomy Status: Resolved (2) History of bowel resection Status: Resolved (3) Post-operative state Status: Resolved Current/Historical Medications Scheduled Amoxicillin (Amoxil), 500 MG PO TID Aspirin (Aspirin EC Low Dose), 81 MG PO QAM Cephalexin Monohydrate (Keflex), 500 MG PO TID Metoprolol Tartrate (Lopressor), 25 MG PO BID Scheduled PRN Oxycodone Ir (Roxicodone Ir), 1 TAB PO Q4H PRN for Pain Allergies Coded Allergies: Amoxicillin (Unverified Allergy, Unknown, GI ISSUES/VOMITING, 04/07/17) Clavulanic Acid (Unverified Allergy, Unknown, GI ISSUES/VOMITING, 04/07/17 ) Vital Signs Date Time Temp Pulse Resp B/P (MAP) Pulse Ox O2 Delivery O2 Flow Rate FiO2 04/07/17 14:22 72 20 125/64 99 04/07/17 13:30 85 20 135/74 95 Room Air 04/07/17 11:37 36.7 68 18 150/80 98 Room Air Departure Information Impression Primary Impression: Laceration of finger Additional Impression: Laceration of right index finger w/o foreign body with damage to nail Dispostion Home / Self-Care Condition GOOD Prescriptions Oxycodone Ir (Roxicodone Ir) 5 Mg Tab 1 TAB PO Q4H Y for Pain, #10 TAB For Initial Treatment Prov: Neelima Sears PA-C 04/07/17 Cephalexin Monohydrate (Keflex) 500 Mg Cap 500 MG PO TID for 5 Days, #15 CAP Prov: Neelima Sears PA-C 04/07/17 Referrals Marcel Houston M.D. (PCP) Patient Instructions ED Laceration Ext Sutr Stap Tape, [facility] Additional Instructions You have received 18 total sutures on your fingers. These sutures are NOT dissolvable and WILL need to be removed by a health care provider in 12-14 days. You can return to the Emergency Department or contact your Primary Care Provider to have the sutures removed. Proper wound care is essential for adequate wound healing and infection prevention. You can shower and clean the wound with soap and water. Do not scour over the wound, pat dry with a towel. Do not submerse the wound (i.e. bathe or dish wash) until the sutures have been removed. You can use an antibiotic ointment with a dressing over the wound for the next 3-4 days. After this time you may leave the wound dry and open to the air. If crust develops over the wound you can use a Q-tip to apply a 1:1 peroxide:water solution to clean the wound. Look for signs of infection of the wound including: increased pain, swelling, foul discharge, streaking, or increased temperature. If any of these are noticed you should return to the Emergency Department for further assessment and treatment. Cephalexin(Keflex) 500mg: Take one pill three times daily for 5 days to prevent skin infection. All antibiotics can cause diarrhea. If this occurs and you feel worse or it does not resolve in 1-2 days follow up with your doctor or return to the Emergency Department as this could be signs of serious underlying problems. Any medication can cause an allergic reaction, stop the pills immediately and return to the ER for rash, hives, breathing difficulties, or swelling. As with any laceration you may have received nerve damage to the surrounding tissues. This damage may or may not be permanent. You should keep the area covered with sunscreen for the first 6 months to 1 year when at risk for exposure to help minimize scarring. You can also use scar reducing creams or Vitamin E oil to help minimize scarring. For pain control, you can use the following [id number] medicines (if >12 yo): Ibuprofen(Motrin, Advil) may be used for fever or pain. Use 600mg every six hours as needed. Take with food. Avoid using more than 2400mg in a 24 hour period. Do not use 2400mg per day for more than three consecutive days without physician direction. Prolonged inappropriate use can lead to stomach upset or ulcers. (AND/OR) Acetaminophen(Tylenol) may be used for fever or pain. Use 1000mg every six hours as needed. Avoid using more than 3000mg in a 24 hour period. Oxycodone (OxyIR) 5mg: Take 1 pills every four hours as needed for breakthrough pain. Avoid alcohol, operating machinery or dangerous equipment, working on ladders or roofs, DRIVING, or situations where being under the influence may be dangerous. It is recommended to use a stool softener such as Colace, 100mg twice daily while taking this medication to avoid constipation. Return to the emergency department if your symptoms worsen despite treatment course outlined above. Problem Qualifiers Primary Impression: Laceration of finger Encounter type: initial encounter Finger: middle finger Damage to nail status: without damage Foreign body presence: without foreign body Laterality: right Qualified Codes: S61.212A - Laceration without foreign body of right middle finger without damage to nail, initial encounter Additional Impression: Laceration of right index finger w/o foreign body with damage to nail Encounter type: initial encounter Qualified Codes: S61.310A - Laceration without foreign body of right index finger with damage to nail, initial encounter
[2017-04-07 14:22] VITALS: BP 125/64; PULSE 72; O2SAT 99
== END 2017-04-07 14:25 | disposition home or self-care (01) ==
LOC: C.EDB 11:33 → C.EDD 14:25
DX: S61.310A Laceration without foreign body of right index finger with damage to nail, initial encounter (principal); S61.213A Laceration without foreign body of left middle finger without damage to nail, initial encounter; W31.2XXA Contact with powered woodworking and forming machines, initial encounter; Z79.899 Other long term (current) drug therapy; Z79.82 Long term (current) use of aspirin; I10 Essential (primary) hypertension; E78.5 Hyperlipidemia, unspecified; Z87.442 Personal history of urinary calculi; Z90.49 Acquired absence of other specified parts of digestive tract

== ENCOUNTER 2018-05-07 14:45 | Observation (INO) ==
[2018-05-07] MEDS ORDERED: SODIUM CHLORIDE 0.9% 1000ML 1,000 ML IV SCH (15:00)
[2018-05-07 15:14] LABS: Basophils # (auto) 0.03 K/uL (0-0.2); Basophils % (auto) 0.5 %; Eosinophils # (auto) 0.17 K/uL (0-0.5); Eosinophils % (auto) 2.8 %; Hematocrit (blood only) 40.6 % (42-52); Hemoglobin 14.2 g/dL (14.0-18.0); Lymphocytes # (auto) 1.86 K/uL (1.2-3.4); Lymphocytes % (auto) 31.1 %; Mean Corpuscular Volume 88.1 fL (80-100); Monocytes # (auto) 0.53 K/uL (0.11-0.59); Monocytes % (auto) 8.9 %; Neutrophils # (auto) 3.39 K/uL (1.4-6.5); Neutrophils % (auto) 56.7 %; Platelet Count 189 K/uL (130-400); RDW Coefficient of Variation 12.4 % (11.5-14.5); RDW Standard Deviation 39.7 fL (36.4-46.3); Red Blood Count 4.61 M/uL (4.7-6.1); White Blood Count 5.98 K/uL (4.8-10.8)
[2018-05-07 15:18] LABS: iSTAT Hemoglobin 13.6 g/dl (14.0-18.0); iSTAT Ionized Calcium 1.25 mmol/l (1.12-1.32)
[2018-05-07 15:21] LABS: Prothrombin Time 10.2 Seconds (9.0-12.0)
[2018-05-07] MEDS ORDERED: IOVERSOL 100ml IV PRN (15:28)
[2018-05-07 15:33] LABS: Alanine Aminotransferase 40 U/L (12-78); Albumin Level 3.8 gm/dl (3.4-5.0); Aspartate Aminotransferase 20 U/L (15-37); BUN Creatinine Ratio 20.3 (10-20); Blood Urea Nitrogen 21 mg/dl (7-18); Calcium 9.2 mg/dl (8.5-10.1); Carbon Dioxide 25 mmol/L (21-32); Chloride 109 mmol/L (98-107); Est GFR (African American) 86.3; Est GFR (Non-African American) 74.5; Glucose 89 mg/dl (70-99); Potassium 3.7 mmol/L (3.5-5.1); Sodium 140 mmol/L (136-145)
--- NOTE | 2018-05-07 15:35 | CT Scan Report ---
CT head/brain wo con CLINICAL HISTORY: 68 years-old Male with fall hit head . Acute head injury status post fall TECHNIQUE: Multiple axial CT images of the head were obtained without contrast. A dose lowering tech nique was utilized adhering to the principles of ALARA. COMPARISON: CT cervical spine of same day. FINDINGS: No acute intracranial hemorrhage, midline shift, intracranial mass, hydrocephalus, territorial ischem ia or abnormal extra-axial collection. Scattered white matter hypodensities are suggestive of mild ch ronic microvascular ischemic changes. The calvarium is intact. Mild leftward bowing and spurring of the nasal septum. Mild mucosal thicken ing of the frontal and ethmoid sinuses. Soft tissues and orbits appear unremarkable. IMPRESSION: No acute intracranial abnormality or calvarial fracture. The above report was generated using voice recognition software. It may contain grammatical, syntax o r spelling errors. Electronically signed by: Jerry Dawson M.D. 05/07/2018 3:34 PM
--- NOTE | 2018-05-07 15:37 | CT Scan Report ---
CT chest w con CLINICAL HISTORY: 68 years-old Male presenting with fall syncope . TECHNIQUE: Multidetector CT imaging of the chest was performed after the administration of intravenou s contrast. IV contrast: 93 mL of Optiray 320. One or more dose lowering techniques were used consist ent with the principles of ALARA (as low as reasonably achievable), including automatic exposure cont rol, mA or kV adjustment to individual patient size, and/or use of iterative reconstruction. COMPARISON: None. CT DOSE (mGy.cm): The estimated cumulative dose is 1730.53. 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 On soft tissue windows, normal thyroid and thoracic inlet. No axillary, supraclavicular, hilar, or me diastinal lymphadenopathy. Minimal atherosclerosis of the aorta. Mild multichamber enlargement of the heart. No pericardial or pleural effusion. Upper abdomen normal. On lung windows, no pneumothorax. Central airways patent. Minimal dependent changes likely atelectasi s. Solid 3 mm polygonal fissural nodule in the right middle lobe (series 8 image 163). On bone windows, hemangioma noted in the T7 vertebral body. Mild multilevel degenerative changes of t he thoracic spine. Partially visualized anterior cervical fusion hardware at C6-7. No acute osseous i njury. IMPRESSION: 1. No acute intrathoracic injury. 2. Mild cardiomegaly. 3. 3 mm solid right middle lobe pulmonary nodule. Follow-up per Fleischner Society 2017 recommendati ons below. Summary of Fleischner Society 2017 Recommendations (H Hector et al. Guidelines for management of i ncidental pulmonary nodules detected on CT images: From the Fleischner Society 2017. Radiology 2017; 284: 228-243.) SOLID NODULES Single nodule; size < 6 mm * Low risk patients: No routine follow-up * High risk patients: Optional CT at 12 months Single nodule; size 6-8 mm * Low risk patients: CT at 6-12 months, then consider CT at 18-24 months * High risk patients: CT at 6-12 months, then at 18-24 months Single nodule; size > 8 mm * Either low or high risk patients: Considered CT at 3 months, PET/CT, or tissue sampling Multiple nodules; size < 6 mm * Low risk patients: No routine follow up * High risk patients: Optional CT at 12 months Multiple nodules; size 6-8 mm * Low risk patients: CT at 3-6 months, then consider CT at 18-24 months * High risk patients: CT at 3-6 months, then at 18-24 months Multiple nodules; size > 8 mm * Low risk patients: CT at 3-6 months, then consider at 18-24 months * High risk patients: CT at 3-6 months, then at 18-24 months SUBSOLID NODULES Single ground-glass nodule * Nodule size < 6 mm: No routine follow-up * Nodule size > or = 6 mm: CT at 6-12 months to confirm persistence, then CT every 2 years until 5 y ears Single part-solid nodule * Nodule size < 6 mm: No routine follow-up * Nodules size > or = 6 mm: CT at 3-6 months to confirm persistence. If unchanged and solid componen t remains < 6 mm, annual CT should be performed for 5 years Multiple nodules * Nodule size < 6 mm: CT at 3-6 months. If stable, consider CT at 2 and 4 years. * Nodules size > or = 6 mm: CT at 3-6 months. Subsequent management based on the most suspicious nod ule(s) NOTE: 1) These guidelines apply to incidental nodules. These guidelines do NOT apply to patients younger th an 35 years, immunocompromised patients, or patients with cancer. 2) Risk categories: * Low risk patients: Minimal or absent history of smoking and/or other known risk factors * High risk patients: History of smoking, exposure to other carcinogens, emphysema, fibrosis, upper lobe location, family history of lung cancer, etc. 3) If a nodule up to 8 mm is partly solid or is ground glass, further follow-up is required after 24 months to exclude possible slow growing adenocarcinoma. Electronically signed by: Renaldo Eckert M.D. 05/07/2018 3:36 PM
--- NOTE | 2018-05-07 15:39 | CT Scan Report ---
CT cervical spine wo con CLINICAL HISTORY: 68 years-old Male with falll . Acute neck injury status post fall COMPARISON: CT head of same day TECHNIQUE: Multiple axial CT images of the cervical spine were obtained without contrast. A dose low ering technique was utilized adhering to the principles of ALARA. FINDINGS: Straightening of the normal cervical lordosis. Discectomy changes with anterior fusion at C6-C7. No e vidence of hardware fracture or loosening. Near complete bony fusion of the vertebral bodies. Mild to moderate multilevel spondylitic spurring with mostly mild multilevel facet arthrosis and moderate to severe facet arthrosis at C4-C5. Partial bony fusion of the facets at C6-C7. No acute cervical spine fracture or subluxation. Evaluation of the central canal and neuroforamina is better assessed by MRI . No definite high-grade central canal narrowing. Multilevel foraminal narrowing is suggested. No prevertebral soft tissue swelling. Mild pleural parenchymal scarring about the imaged lung apices. IMPRESSION: No acute cervical spine fracture or subluxation. The above report was generated using voice recognition software. It may contain grammatical, syntax o r spelling errors. Electronically signed by: Jerry Dawson M.D. 05/07/2018 3:38 PM
--- NOTE | 2018-05-07 15:45 | CT Scan Report ---
CT thoracic spine wo con CLINICAL HISTORY: 68 years-old Male presenting with fall hit head back pain . TECHNIQUE: Multidetector CT of the thoracic spine was performed without the use of intravenous contra st. IV contrast: None. One or more dose lowering techniques were used consistent with the principles of ALARA (as low as reasonably achievable), including automatic exposure control, mA or kV adjustment to individual patient size, and/or use of iterative reconstruction. COMPARISON: None. CT DOSE (mGy.cm): The estimated cumulative dose is 1730.53 mGy.cm. 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 Normal thoracic kyphosis. Vertebral bodies maintain normal height and alignment. Intervertebral disc heights preserved. Multilevel degenerative changes. Hemangioma noted in the T7 vertebral body. Develo pmental lack of fusion of a secondary ossification center at the dorsal aspect of the spinous process of T4. No acute fracture or subluxation. No osseous neural foraminal or spinal canal narrowing. Part ially visualized anterior cervical fusion hardware. Visualized ribs intact. Dependent changes in the lungs likely atelectasis. Paraspinal soft tissues within normal limits. IMPRESSION: 1. No acute osseous injury of the thoracic spine. 2. Multilevel degenerative changes. Electronically signed by: Renaldo Eckert M.D. 05/07/2018 3:44 PM
[2018-05-07 15:55] LABS: Albumin Globulin Ratio 1.2 (0.9-2); Alkaline Phosphatase 70 U/L (45-117); Bilirubin,Total 0.3 mg/dl (0.2-1); Globulin 3.2 gm/dl (2.5-4.0)
[2018-05-07 15:56] LABS: Troponin I 0.058 ng/ml (0-0.045)
--- NOTE | 2018-05-07 16:16 | XRay Report ---
XR pelvis 1-2V routine CLINICAL HISTORY: 68 years-old Male presenting with fall . TECHNIQUE: Single frontal view of the pelvis was obtained. COMPARISON: CT of abdomen and pelvis from 07/14/2014. FINDINGS: Sacroiliac joints, pubic symphysis, and hip joints congruent. The urinary bladder is distended with c ontrast degrading evaluation of the sacrum. Within this limitation, arcuate lines of the sacrum gross ly intact. Lower lumbar spine normal. No acute fracture or malalignment. Mild degenerative changes durbin ggested at the superior lateral right femoral head versus a cam type deformity. IMPRESSION: No acute osseous injury. Electronically signed by: Renaldo Eckert M.D. 05/07/2018 4:15 PM
[2018-05-07] MEDS ORDERED: KETOROLAC 30 MG/ML VIAL IV STA (17:10)
[2018-05-07] MEDS ORDERED: ASPIRIN CHEW 324 MG PO STA (17:10)
--- NOTE | 2018-05-07 17:10 | Emergency Department Note ---
Entered by Pamela King acting as a scribe for Esequiel Littlejohn DO History of Present Illness General Chief complaint: Head Pain Stated complaint: HEAD, NECK AND BACK PAIN DUE TO FALL Source: patient Mode of arrival: ambulatory Limitations: no limitations History of Present Illness Onset (ago): hour(s) (1300 ) Location: head Pain Consistency: + other (episode) Current Pain Intensity: 7 Associated symptoms: + chest pain, + headaches and + other ( The patient complains of back pain and shoulder pain. The patient denies abdominal pain. ) The patient is a 68 year old male who presents to the ED with complaints of an episode of head pain with an onset of 1300. Per , the patient fell off the back of a pickup truck and hit his head on the concrete. He states he did not lose consciousness. At this point he went inside the house. He was sitting down but was still not feeling good. He had head neck and upper back pain which is been persistent since then. notes that she made him come in since he was sitting on the couch and still in pain. The patient rates his pain as a 7/10 in severity. The patient complains of headache, chest pain, back pain , and shoulder pain. The patient denies abdominal pain. Per , the patient is on aspirin. He had no chest pain prior to the incident. Since the incident he has pain when he goes to take a deep breath. No other exacerbating or remitting factors. Home Medications Home Medications Medication Instructions Recorded Confirmed Type aspirin 81 mg PO QAM 01/25/18 05/07/18 History metoprolol tartrate 25 mg PO BID 01/25/18 05/07/18 History Allergies Allergy/AdvReac Type Severity Reaction Status Date / Time amoxicillin Allergy Mild GI Verified 05/07/18 16:17 ISSUES/VOMITING clavulanic acid Allergy Mild GI Verified 05/07/18 16:17 ISSUES/VOMITING Past Med/Surg History Social History Current Living Situation: Spouse Feels Safe at Home: Yes Smoking Status: Never smoker Second Hand Exposure: No Hx Alcohol Use: No Hx Substance Use: No Beliefs That Will Affect Care: None Preferred Language: Faroese Communication Ability: Effective Visual Impairment: No Limitations Hearing Ability: Normal Review of Systems See HPI for pertinent positives & negatives. and A total of 10 systems reviewed and were otherwise negative Physical Exam Vital Signs Vital Signs - 24 hr 05/07/18 14:55 05/07/18 15:30 Temperature 36.5 C Temperature Source Oral Sepsis Recent Fever Within 48 Hours No Sepsis Action Taken by Nursing No Action Required Pulse Rate 61 Pulse Rate [Apical] 62 Respiratory Rate 18 18 Respiratory Effort / Characteristics Non-Labored Spontaneous Non-Labored Spontaneous Respiratory Depth Normal Normal Respiratory Pattern Regular Regular Blood Pressure 203/102 H Blood Pressure [Right Arm] 150/100 H Blood Pressure Mean 135 Blood Pressure Mean [Right Arm] 116 Blood Pressure Position Lying Blood Pressure Position [Right Arm] Lying Pulse Oximetry 99 100 Oxygen Delivery Method Room Air Room Air GENERAL: Lying in bed, disheveled, no acute distress, lethargic. HEAD: normal cephalic, atraumatic EYE EXAM: normal conjunctiva, PERRL and EOM's grossly intact OROPHARYNX: no exudate, no erythema, lips, buccal mucosa, and tongue normal and mucous membranes are moist EARS: TMs clear b/l NECK: supple, no nuchal rigidity, no adenopathy. Midline cervical tenderness tracking through the upper thoracic region CHEST: stable to compression anteriorly and posteriorly. Reproducible anterior chest pain. LUNGS: clear to auscultation. Normal chest wall mechanics HEART: no murmurs, S1 normal and S2 normal ABDOMEN: abdomen soft, non-tender, normo-active bowel sounds, no masses, no rebound or guarding. PELVIS: stable to compression anteriorly and posteriorly BACK: Back is symmetrical on inspection and there is no deformity, no midline tenderness, no CVA tenderness. UPPER EXTREMITIES: full active and passive range of motion of all joints without tenderness to palpation LOWER EXTREMITIES: full active and passive range of motion of all joints without tenderness to palpation NEURO EXAM: Normal sensorium, cranial nerves II-XII grossly intact, normal speech, no gross weakness of arms, no gross weakness of legs. GCS: 15. Course 1453: Past medical records reviewed. The patient was evaluated in room B01, and a complete history and physical examination were performed. 1530: The patient was moved to C10. 1605: The patient's previous Trop was elevated in April of 2016 with atrial fibrillation RVR. 1612: I reviewed the patient's case with Dr. Lucas Bergeron. He will evaluate the patient for further management. Consultations Consultation #1: 1612: I reviewed the patient's case with Dr. Lucas Bergeron. He will evaluate the patient for further management. Time: 16:12 Administered Medications Ioversol (Optiray 320 100ml) 94 ml IV ONCE PRN PRN Reason: Interaction Checking Stop: 05/11/18 15:27 Last Admin: 05/07/18 15:29 Dose: 94 ml Discontinued Medications Sodium Chloride (Nss 1000ml) 1,000 mls @ 999 mls/hr IV .Q1H1M VICTORIA Stop: 05/07/18 16:00 Last Infusion: 05/07/18 16:31 Dose: 0 mls/hr Admin: 05/07/18 15:03 Dose: 999 mls/hr Medical Decision Making Differential Diagnosis Differential Diagnoses Include: Intracranial injury, cervical spine injury, intrathoracic injury, intra- abdominal injury, musculoskeletal injury. Medical Records Attestation: I reviewed the patient's medical records. Home Medications Current Medication List: was personally reviewed by me Laboratory Data Attestation: I reviewed the patient's lab results. Result diagrams: 05/07/18 14:58 05/07/18 14:58 Lab Results 05/07/18 05/07/18 05/07/18 Range/Units 14:58 14:58 14:58 WBC 5.98 (4.8-10.8) K/uL RBC 4.61 L (4.7-6.1) M/uL Hgb 14.2 (14.0-18.0) g/dL POC Hgb (14.0-18.0) g/dl Hct 40.6 L (42-52) % POC Hct (42-52) % MCV 88.1 (80-100) fL MCH 30.8 (25-34) pg MCHC 35.0 (32-36) g/dL RDW Std Deviation 39.7 (36.4-46.3) fL RDW Coeff of Ceferino 12.4 (11.5-14.5) % Plt Count 189 (130-400) K/uL MPV 11.0 H (7.4-10.4) fL Immature Gran % (Auto) 0.0 % Neut % (Auto) 56.7 % Lymph % (Auto) 31.1 % [place] % (Auto) 8.9 % Eos % (Auto) 2.8 % Baso % (Auto) 0.5 % Immature Gran # (Auto) 0.00 (0.00-0.02) K/uL Neut # (Auto) 3.39 (1.4-6.5) K/uL Lymph # (Auto) 1.86 (1.2-3.4) K/uL [place] # (Auto) 0.53 (0.11-0.59) K/uL Eos # (Auto) 0.17 (0-0.5) K/uL Baso # (Auto) 0.03 (0-0.2) K/uL PT 10.2 (9.0-12.0) Seconds INR 1.0 (0.9-1.1) POC Sodium (135-144) mEq/L Sodium 140 (136-145) mmol/L POC Potassium (3.3-5.0) mEq/L Potassium 3.7 (3.5-5.1) mmol/L POC Chloride (101-112) mEq/L Chloride 109 H (98-107) mmol/L Carbon Dioxide 25 (21-32) mmol/L POC Total CO2 (24-31) mEq/l Anion Gap 6.0 (3-11) POC Anion Gap (16-25) mmol/L POC BUN (7-18) mg/dl BUN 21 H (7-18) mg/dl Creatinine 1.04 (0.6-1.4) mg/dl POC Creatinine (0.6-1.3) mg/dl Est Cr Clr Drug Dosing Not Reportable Est GFR ( Amer) 86.3 Est GFR (Non-Af Amer) 74.5 BUN/Creatinine Ratio 20.3 H (10-20) Glucose 89 (70-99) mg/dl POC Glucose (other) (70-99) mg/dl Calcium 9.2 (8.5-10.1) mg/dl POC Ioniz Calcium Saad (1.12-1.32) mmol/l Total Bilirubin 0.3 (0.2-1) mg/dl AST 20 (15-37) U/L ALT 40 (12-78) U/L Alkaline Phosphatase 70 (45-117) U/L Troponin I 0.058 H* (0-0.045) ng/ml Total Protein 7.0 (6.4-8.2) gm/dl Albumin 3.8 (3.4-5.0) gm/dl Globulin 3.2 (2.5-4.0) gm/dl Albumin/Globulin Ratio 1.2 (0.9-2) Blood Type Antibody Screen 05/07/18 05/07/18 Range/Units 15:04 15:12 WBC (4.8-10.8) K/uL RBC (4.7-6.1) M/uL Hgb (14.0-18.0) g/dL POC Hgb 13.6 L (14.0-18.0) g/dl Hct (42-52) % POC Hct 40 L (42-52) % MCV (80-100) fL MCH (25-34) pg MCHC (32-36) g/dL RDW Std Deviation (36.4-46.3) fL RDW Coeff of Ceferino (11.5-14.5) % Plt Count (130-400) K/uL MPV (7.4-10.4) fL Immature Gran % (Auto) % Neut % (Auto) % Lymph % (Auto) % [place] % (Auto) % Eos % (Auto) % Baso % (Auto) % Immature Gran # (Auto) (0.00-0.02) K/uL Neut # (Auto) (1.4-6.5) K/uL Lymph # (Auto) (1.2-3.4) K/uL [place] # (Auto) (0.11-0.59) K/uL Eos # (Auto) (0-0.5) K/uL Baso # (Auto) (0-0.2) K/uL PT (9.0-12.0) Seconds INR (0.9-1.1) POC Sodium 142 (135-144) mEq/L Sodium (136-145) mmol/L POC Potassium 3.7 (3.3-5.0) mEq/L Potassium (3.5-5.1) mmol/L POC Chloride 106 (101-112) mEq/L Chloride (98-107) mmol/L Carbon Dioxide (21-32) mmol/L POC Total CO2 24 (24-31) mEq/l Anion Gap (3-11) POC Anion Gap 17.0 (16-25) mmol/L POC BUN 21 H (7-18) mg/dl BUN (7-18) mg/dl Creatinine (0.6-1.4) mg/dl POC Creatinine 1.0 (0.6-1.3) mg/dl Est Cr Clr Drug Dosing Est GFR ( Amer) Est GFR (Non-Af Amer) BUN/Creatinine Ratio (10-20) Glucose (70-99) mg/dl POC Glucose (other) 90 (70-99) mg/dl Calcium (8.5-10.1) mg/dl POC Ioniz Calcium Saad 1.25 (1.12-1.32) mmol/l Total Bilirubin (0.2-1) mg/dl AST (15-37) U/L ALT (12-78) U/L Alkaline Phosphatase (45-117) U/L Troponin I (0-0.045) ng/ml Total Protein (6.4-8.2) gm/dl Albumin (3.4-5.0) gm/dl Globulin (2.5-4.0) gm/dl Albumin/Globulin Ratio (0.9-2) Blood Type O Negative Antibody Screen NEGATIVE Imaging Data Radiologist's Impression: Radiology results as stated below per my review and the radiologist's interpretation: XR pelvis 1-2V routine CLINICAL HISTORY: 68 years-old Male presenting with fall . TECHNIQUE: Single frontal view of the pelvis was obtained. COMPARISON: CT of abdomen and pelvis from 07/14/2014. FINDINGS: Sacroiliac joints, pubic symphysis, and hip joints congruent. The urinary bladder is distended with contrast degrading evaluation of the sacrum. Within this limitation, arcuate lines of the sacrum grossly intact. Lower lumbar spine normal. No acute fracture or malalignment. Mild degenerative changes suggested at the superior lateral right femoral head versus a cam type deformity. IMPRESSION: No acute osseous injury. Electronically signed by: Renaldo Eckert M.D. 05/07/2018 4:15 PM Dictated: 05/07/18 1614 Transcribed: 05/07/[address] thoracic spine wo con CLINICAL HISTORY: 68 years-old Male presenting with fall hit head back pain . TECHNIQUE: Multidetector CT of the thoracic spine was performed without the use of intravenous contrast. IV contrast: None. One or more dose lowering techniques were used consistent with the principles of ALARA (as low as reasonably achievable), including automatic exposure control, mA or kV adjustment to individual patient size, and/or use of iterative reconstruction. COMPARISON: None. CT DOSE (mGy.cm): The estimated cumulative dose is 1730.53 mGy.cm. FINDINGS: [employer] topogram: Unremarkable. Normal thoracic kyphosis. Vertebral bodies maintain normal height and alignment. Intervertebral disc heights preserved. Multilevel degenerative changes. Hemangioma noted in the T7 vertebral body. Developmental lack of fusion of a secondary ossification center at the dorsal aspect of the spinous process of T4. No acute fracture or subluxation. No osseous neural foraminal or spinal canal narrowing. Partially visualized anterior cervical fusion hardware. Visualized ribs intact. Dependent changes in the lungs likely atelectasis. Paraspinal soft tissues within normal limits. IMPRESSION: 1. No acute osseous injury of the thoracic spine. 2. Multilevel degenerative changes. Electronically signed by: Renaldo Eckert M.D. 05/07/2018 3:44 PM Dictated: 05/07/181536 Transcribed: 05/07/181536 CT head/brain wo con CLINICAL HISTORY: 68 years-old Male with fall hit head . Acute head injury status post fall TECHNIQUE: Multiple axial CT images of the head were obtained without contrast. A dose lowering technique was utilized adhering to the principles of ALARA. COMPARISON: CT cervical spine of same day. FINDINGS: No acute intracranial hemorrhage, midline shift, intracranial mass, hydrocephalus, territorial ischemia or abnormal extra-axial collection. Scattered white matter hypodensities are suggestive of mild chronic microvascular ischemic changes. The calvarium is intact. Mild leftward bowing and spurring of the nasal septum. Mild mucosal thickening of the frontal and ethmoid sinuses. Soft tissues and orbits appear unremarkable. IMPRESSION: No acute intracranial abnormality or calvarial fracture. The above report was generated using voice recognition software. It may contain grammatical, syntax or spelling errors. Electronically signed by: Jerry Dawson M.D. 05/07/2018 3:34 PM Dictated: 05/07/18 153 Transcribed: 05/07/181531 CT chest w con CLINICAL HISTORY: 68 years-old Male presenting with fall syncope . TECHNIQUE: Multidetector CT imaging of the chest was performed after the administration of intravenous contrast. IV contrast: 93 mL of Optiray 320. One or more dose lowering techniques were used consistent with the principles of ALARA (as low as reasonably achievable), including automatic exposure control, mA or kV adjustment to individual patient size, and/or use of iterative reconstruction. COMPARISON: None. CT DOSE (mGy.cm): The estimated cumulative dose is 1730.53. FINDINGS: [employer] topogram: Unremarkable. On soft tissue windows, normal thyroid and thoracic inlet. No axillary, supraclavicular, hilar, or mediastinal lymphadenopathy. Minimal atherosclerosis of the aorta. Mild multichamber enlargement of the heart. No pericardial or pleural effusion. Upper abdomen normal. On lung windows, no pneumothorax. Central airways patent. Minimal dependent changes likely atelectasis. Solid 3 mm polygonal fissural nodule in the right middle lobe (series 8 image 163). On bone windows, hemangioma noted in the T7 vertebral body. Mild multilevel degenerative changes of the thoracic spine. Partially visualized anterior cervical fusion hardware at C6-7. No acute osseous injury. IMPRESSION: 1. No acute intrathoracic injury. 2. Mild cardiomegaly. 3. 3 mm solid right middle lobe pulmonary nodule. Follow-up per Fleischner Society 2017 recommendations below. Summary of Fleischner Society 2017 Recommendations (H Hector et al. Guidelines for management of incidental pulmonary nodules detected on CT images : From the Fleischner Society 2017. Radiology 2017; 284: 228-243.) SOLID NODULES Single nodule; size < 6 mm * Low risk patients: No routine follow-up * High risk patients: Optional CT at 12 months Single nodule; size 6-8 mm * Low risk patients: CT at 6-12 months, then consider CT at 18-24 months * High risk patients: CT at 6-12 months, then at 18-24 months Single nodule; size > 8 mm * Either low or high risk patients: Considered CT at 3 months, PET/CT, or tissue sampling Multiple nodules; size < 6 mm * Low risk patients: No routine follow up * High risk patients: Optional CT at 12 months Multiple nodules; size 6-8 mm * Low risk patients: CT at 3-6 months, then consider CT at 18-24 months * High risk patients: CT at 3-6 months, then at 18-24 months Multiple nodules; size > 8 mm * Low risk patients: CT at 3-6 months, then consider at 18-24 months * High risk patients: CT at 3-6 months, then at 18-24 months SUBSOLID NODULES Single ground-glass nodule * Nodule size < 6 mm: No routine follow-up * Nodule size > or = 6 mm: CT at 6-12 months to confirm persistence, then CT every 2 years until 5 years Single part-solid nodule * Nodule size < 6 mm: No routine follow-up * Nodules size > or = 6 mm: CT at 3-6 months to confirm persistence. If unchanged and solid component remains < 6 mm, annual CT should be performed for 5 years Multiple nodules * Nodule size < 6 mm: CT at 3-6 months. If stable, consider CT at 2 and 4 years. * Nodules size > or = 6 mm: CT at 3-6 months. Subsequent management based on the most suspicious nodule(s) NOTE: 1) These guidelines apply to incidental nodules. These guidelines do NOT apply to patients younger than 35 years, immunocompromised patients, or patients with cancer. 2) Risk categories: * Low risk patients: Minimal or absent history of smoking and/or other known risk factors * High risk patients: History of smoking, exposure to other carcinogens, emphysema, fibrosis, upper lobe location, family history of lung cancer, etc. 3) If a nodule up to 8 mm is partly solid or is ground glass, further follow-up is required after 24 months to exclude possible slow growing adenocarcinoma. Electronically signed by: Renaldo Eckert M.D. 05/07/2018 3:36 PM Dictated: 05/07/18 1532 Transcribed: 05/07/[address] cervical spine wo con CLINICAL HISTORY: 68 years-old Male with falll . Acute neck injury status post fall COMPARISON: CT head of same day TECHNIQUE: Multiple axial CT images of the cervical spine were obtained without contrast. A dose lowering technique was utilized adhering to the principles of ALARA. FINDINGS: Straightening of the normal cervical lordosis. Discectomy changes with anterior fusion at C6-C7. No evidence of hardware fracture or loosening. Near complete bony fusion of the vertebral bodies. Mild to moderate multilevel spondylitic spurring with mostly mild multilevel facet arthrosis and moderate to severe facet arthrosis at C4-C5. Partial bony fusion of the facets at C6-C7. No acute cervical spine fracture or subluxation. Evaluation of the central canal and neuroforamina is better assessed by MRI. No definite high-grade central canal narrowing. Multilevel foraminal narrowing is suggested. No prevertebral soft tissue swelling. Mild pleural parenchymal scarring about the imaged lung apices. IMPRESSION: No acute cervical spine fracture or subluxation. The above report was generated using voice recognition software. It may contain grammatical, syntax or spelling errors. Electronically signed by: Jerry Dawson M.D. 05/07/2018 3:38 PM Dictated: 05/07/181533 Transcribed: 05/07/181533 ECG Data Attestation: I personally reviewed and interpreted this ECG as follows: Indication: syncope Rate (beats per minute): 66 Rhythm: sinus rhythm Findings: + other (normal axis) and + RBBB; no PVC Blood Pressure Blood Pressure Findings: Elevated blood pressure Blood Pressure Disposition: further management by hospitalist MDM Narrative Patient is a 68-year-old male who presents the ER following a mechanical fall where he hit his head. He went into the house and was eventually brought in to the hospital as he was having head neck and upper back pain. Denies taking any blood thinners. Vitals do show that he is hypertensive. CBC shows no significant leukocytosis or anemia. BMP was unremarkable. INR was normal. LFTs are unremarkable as well. Troponin was detectable and positive at 0.06. I -STAT was obtained and patient was taken immediately to CAT scan following a syncopal episode in triage. CT of the head, cervical spine, thoracic spine and chest showed no acute pathology. EKG was unremarkable. Upon review of his previous chart patient had an elevated troponin back in April 2016 secondary to A. fib. Based on the syncope and the elevated troponin did discuss with the hospitalist for observation. Updated patient and family members at bedside. Patient was given oral aspirin and IV Toradol secondary to the pain. Impression & Plan Fall, Headache, Syncope, Elevated troponin Discharge Plan Visit Data Chief Complaint: Head Pain Stated Complaint: HEAD, NECK AND BACK PAIN DUE TO FALL ED Provider: Esequiel Littlejohn Discharge Problem: Fall, Headache, Syncope, Elevated troponin Patient Disposition: Being Evaluated by Hospitalist Forms Stand Alone Forms: [facility] Prescriptions Prescriptions: No Action aspirin 81 mg Tablet,Chewable 81 mg PO QAM RF: 0 metoprolol tartrate 25 mg Tablet 25 mg PO BID RF: 0 Referrals Referrals: Marcel Houston MD [Primary Care Provider] - The scribe's documentation has been prepared under my direction and personally reviewed by me in its entirety. I confirm that the note above accurately reflects all work, treatment, procedures, and medical decision making performed by me.
--- NOTE | 2018-05-07 17:33 | History & Physical Report ---
Date of Service May 07, 2018 Assessment & Plan (1) Syncope: Main reason for admission is for the syncopal episode in the triage area in the ED. He reports he was in a significant amount of pain at the time due to his fall. No telemetry or other monitoring to help substantiate cause, though ED provider was concerned for possible episode of afib with RVR or other arrythmia. No tonic/clonic behavior or other concerning signs of seizure. - Continue telemetry monitoring overnight - Trend troponins to rule out ischemic cause - Has follow up with Jayro Martinez on 05/10, so can follow up with him for further testing if trops remain stable and no arrythmia seen overnight (2) Elevated troponin: Initial troponins was 0.06 which is nearly normal. No chest pain or EKG changes to indicate acute ischemic event. Concern for some demand ischemia if the syncope was caused by cardiac arrythmia. - Trend troponins and EKGs (3) Fall: Mechanical in nature as he just slipped off his truck bed. No lightheadedness, prodrome, and no loss of consciousness after fall. CTs of head , spine, and chest were all negative for bleeding or fracture. CT chest on showed a 3mm pulmonay nodule which could have optional follow up CT in 12 months if patient is considered high risk. - Manage symptoms (4) Afib: Paroxsymal. Normal sinus on EKG on admission. - Continue ASA & beta-al - Telemetry - Follow up with Dr. Martinez in clinic (5) DVT prophylaxis: SCDs - Low risk patient per calculator History of Present Illness Primary Care Provider: Marcel Houston MD 68yo M w/ hx of HTN and paroxsymal afib who presents after fall from his truck bed. He was in his normal state of health and just had a mechanical fall. He came to the ED because he was concerned about a fracture and was worried about becoming paraplegic. In the triage area, he had an episode of syncope, but he does report he was in significant pain at the time. No chest pain, no shortness of breath, no current lightheadedness or other symptoms apart from back pain. He was not on the telemetry montor at the time. In the ED, troponin was found to be 0.06, and his admission was requested. Allergies Allergy/AdvReac Type Severity Reaction Status Date / Time amoxicillin Allergy Mild GI Verified 05/07/18 16:17 ISSUES/VOMITING clavulanic acid Allergy Mild GI Verified 05/07/18 16:17 ISSUES/VOMITING Home Medications Home Medications Medication Instructions Recorded Confirmed Type aspirin 81 mg PO QAM 01/25/18 05/07/18 History metoprolol tartrate 25 mg PO BID 01/25/18 05/07/18 History Past Med/Surg History Medical History Atrial fibrillation Hypertension Kidney stones Osteoarthritis Surgical History Fusion of spine CERVICAL History of appendectomy History of colonoscopy History of cystoscopy REMOVAL OF KIDNEY History of endoscopic sinus surgery History of herniorrhaphy INCISIONAL Torsion of intestine, bowel or colon REPAIR Social History Current Living Situation: Spouse Feels Safe at Home: Yes Smoking Status: Never smoker Second Hand Exposure: No Hx Alcohol Use: No Hx Substance Use: No Beliefs That Will Affect Care: None Preferred Language: Arabic Communication Ability: Effective Visual Impairment: No Limitations Hearing Ability: Normal Review of Systems Constitutional: no fever, no chills and no sweats Eyes: no diplopia Ear, Nose, Mouth, Throat: no ear trauma, no nasal discharge and no dental pain Respiratory: no cough, no chest congestion and no dyspnea Cardiovascular: no chest pain, no dyspnea on exertion, no palpitations and no syncope Gastrointestinal: no abdominal pain, no belching, no constipation, no diarrhea/ loose stools, no blood in stools and no melena Musculoskeletal: + back pain, + neck pain and + stiffness; no joint pain and no muscle weakness Integumentary: no rash, no skin ulcer and no erythema Neurologic: no generalized weakness, no loss of sensation, no numbness and no paresthesia Psychiatric: no depression and no anxiety Endocrine: no fatigue, no polydipsia and no polyphagia Physical Exam 2 Vital Signs (Past 24 Hours): Last Vital Signs Temp 36.5 C 05/07/18 14:55 Pulse 62 05/07/18 15:30 Resp 18 05/07/18 15:30 BP 150/100 H 05/07/18 15:30 Pulse Ox 100 05/07/18 15:30 Constitutional: WD/WN, vitals as above Eyes: EOM intact bilaterally; no conjunctival abnormality ENMT: external ear and nose normal, oropharynx normal Neck: trachea midline, no thyromegaly normal visual inspection Respiratory: normal respiratory effort, lungs clear to auscultation no respiratory distress Cardiovascular: RRR, no murmur, no edema Gastrointestinal (Abdomen): Inspection/Auscultation: abdomen normal to inspection; abdomen not distended Musculoskeletal: no cyanosis or clubbing, extremities motor strength 5/5 Skin: no rashes, warm and dry Neurologic: moves all extremities and awake Psychiatric: Orientation: alert, oriented to person and cooperative _ (1) Syncope Encounter type: Syncope type: unspecified Qualified Code(s): R55 - Syncope and collapse (2) Fall Encounter type: initial encounter Qualified Code(s): W19.XXXA - Unspecified fall, initial encounter
[2018-05-07] MEDS ORDERED: ACETAMINOPHEN 325 MG TAB PO PRN (18:43)
[2018-05-07] MEDS ORDERED: KETOROLAC TROMETHAMINE 15 MG/ML VIAL IV PRN (18:43)
[2018-05-07] MEDS: METOPROLOL TARTRATE 25 MG TAB PO SCH (21:46)
[2018-05-08 05:51] LABS: Hematocrit (blood only) 40.9 % (42-52); Hemoglobin 13.9 g/dL (14.0-18.0); Mean Corpuscular Volume 88.7 fL (80-100); Platelet Count 183 K/uL (130-400); RDW Coefficient of Variation 12.5 % (11.5-14.5); RDW Standard Deviation 40.3 fL (36.4-46.3); Red Blood Count 4.61 M/uL (4.7-6.1); White Blood Count 5.87 K/uL (4.8-10.8)
[2018-05-08 06:16] LABS: BUN Creatinine Ratio 17.3 (10-20); Calcium 8.8 mg/dl (8.5-10.1); Creatinine Clr Calc Pharmacy 81.8 ml/min; Est GFR (African American) 95.1; Magnesium 2.4 mg/dl (1.8-2.4)
[2018-05-08] MEDS: METOPROLOL TARTRATE 25 MG TAB PO SCH (07:50)
[2018-05-08] MEDS ORDERED: ASPIRIN 81 MG CHEW PO SCH (09:00)
--- NOTE | 2018-05-08 11:54 | Cardiology Consultation ---
Date of Consultation May 08, 2018 Assessment & Plan (1) Syncope: Patient did have witnessed syncopal event. The did not appear to be any prodrome or extended period of fatigue afterwards which would be more characteristic of a vagally mediated episode. It is possible that he suffered a transient arrhythmia. He does not report other symptoms consistent with transient arrhythmias. He has never had dizziness or syncope. Given his known normal cardiac structure and function I think he is at low risk for more malignant causes of syncope. In the absence of recurrent symptoms I do not think he requires any additional testing. Present on Admission?: Yes (2) Elevated troponin: His biomarkers are only minimally elevated. This is likely a chronic condition. I do not believe he had an ischemic event yesterday. I do not think he requires any additional testing in this regard. History of Present Illness Reason for Consultation: Syncope Requesting Physician: Donna Attending Physician: Fernando Thompson MD, PhD, [facility] History of Present Illness The patient is a 68-year-old gentleman with a history of paroxysmal atrial fibrillation who suffered a mechanical injury yesterday while attempting to climb into the bed of his truck. Patient states that he was attempting to reach something on a high shelf was in the process of climbing up into the truck bed parked in the garage when he slipped and fell on his back. He did have significant discomfort but was able to ambulate to his house. Based on the nature of his injury his suggests that he seek medical attention and went to [facility] for evaluation. He did have some stiffness and discomfort in the back at that time. It seems that in triage the patient experienced an episode of syncope. The patient recalls the episode but does not recall any symptoms leading up to the event. He was not aware of any palpitations. He did not report any sense of dizziness or lightheadedness. He did not feel warm or diaphoretic. He had no associated nausea. It seems the episode was very brief in afterwards the patient stated that he felt fine. He has not had any additional symptoms of that nature since admission. Over the course of the evening the patient has felt well. He has only minor discomfort from the fall that he experienced yesterday. He states that he does not experience episodes of dizziness. He cannot recall ever having another episode of syncope. He has not been aware of palpitations recently. 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 [place] also [place] the [place]. He has not been experiencing symptoms of dyspnea or limiting breathing difficulty. He has not had symptoms of exertional chest pain or rest pain. He denies any difficulty sleeping at night. He does not report any orthopnea or paroxysmal nocturnal dyspnea. Allergies Allergy/AdvReac Type Severity Reaction Status Date / Time amoxicillin Allergy Mild GI Verified 05/07/18 16:17 ISSUES/VOMITING clavulanic acid Allergy Mild GI Verified 05/07/18 16:17 ISSUES/VOMITING Home Medications Home Medications Medication Instructions Recorded Confirmed Type aspirin 81 mg PO QAM 01/25/18 05/07/18 History metoprolol tartrate 25 mg PO BID 01/25/18 05/07/18 History Patient History Medical History Atrial fibrillation Hypertension Kidney stones Osteoarthritis Surgical History Fusion of spine CERVICAL History of appendectomy History of colonoscopy History of cystoscopy REMOVAL OF KIDNEY History of endoscopic sinus surgery History of herniorrhaphy INCISIONAL Torsion of intestine, bowel or colon REPAIR Social History Current Living Situation: Spouse Other Information That Helps Us Care for You: No Feels Safe at Home: Yes Safety Concerns: Feels Safe At This Time Smoking Status: Never smoker Do You Dip or Chew Tobacco: No Hx Alcohol Use: Yes Alcohol type: hard liquor Alcohol Intake Frequency: holidays/special occasions only Hx Substance Use: No Beliefs That Will Affect Care: None Preferred Language: Bengali Communication Ability: Effective Review of Systems Complete. Pertinent positives known history of present illness. No recent constitutional symptoms such as fevers or chills. Physical Exam 2 Vital Signs (Past 24 Hours): Last Vital Signs Temp 36.5 C 05/08/18 07:47 Pulse 64 05/08/18 07:47 Resp 20 05/08/18 07:47 BP 157/84 H 05/08/18 07:47 Pulse Ox 97 05/08/18 07:47 Physical Exam: The patient is alert and oriented. Mood and affect appeared normal. He answered all questions appropriately. HEENT: Pupils are equal and reactive to light and accommodation. Extraocular movements are intact. The sclerae are anicteric. Neuro: Cranial nerves intact Neck: Patient's neck is supple. He has palpable carotid pulses bilaterally without bruits on auscultation. There is no evidence of jugular venous distention. The thyroid is not enlarged. Lungs: Clear to auscultation bilaterally. He has good air movement without use of accessory muscles. No rales wheezes or rhonchi. Cardiac: Heart demonstrates a regular rate and rhythm. Normal S1 and S2. No murmurs on examination. Pulses: The patient has palpable radial pulses bilaterally that are equal in intensity Extremities: There was no evidence of hypoperfusion. There is no cyanosis or clubbing. There is no edema. Skin: I did not appreciate any rashes on examination today. Results & Data Laboratory Results Abnormal Lab Results 05/07/18 05/07/18 05/07/18 14:58 14:58 14:58 WBC 5.98 RBC 4.61 L Hgb 14.2 POC Hgb Hct 40.6 L POC Hct MCV 88.1 MCH 30.8 MCHC 35.0 RDW Std Deviation 39.7 RDW Coeff of Ceferino 12.4 Plt Count 189 MPV 11.0 H Immature Gran % (Auto) 0.0 Neut % (Auto) 56.7 Lymph % (Auto) 31.1 [place] % (Auto) 8.9 Eos % (Auto) 2.8 Baso % (Auto) 0.5 Immature Gran # (Auto) 0.00 Neut # (Auto) 3.39 Lymph # (Auto) 1.86 [place] # (Auto) 0.53 Eos # (Auto) 0.17 Baso # (Auto) 0.03 PT 10.2 INR 1.0 POC Sodium Sodium 140 POC Potassium Potassium 3.7 POC Chloride Chloride 109 H Carbon Dioxide 25 POC Total CO2 Anion Gap 6.0 POC Anion Gap POC BUN BUN 21 H Creatinine 1.04 POC Creatinine Est Cr Clr Drug Dosing Not Reportable Est GFR ( Amer) 86.3 Est GFR (Non-Af Amer) 74.5 BUN/Creatinine Ratio 20.3 H Glucose 89 POC Glucose (other) Calcium 9.2 POC Ioniz Calcium Saad Magnesium Total Bilirubin 0.3 AST 20 ALT 40 Alkaline Phosphatase 70 Troponin I 0.058 H* Total Protein 7.0 Albumin 3.8 Globulin 3.2 Albumin/Globulin Ratio 1.2 Blood Type Antibody Screen 05/07/18 05/07/18 05/07/18 15:04 15:12 21:01 WBC RBC Hgb POC Hgb 13.6 L Hct POC Hct 40 L MCV MCH MCHC RDW Std Deviation RDW Coeff of Ceferino Plt Count MPV Immature Gran % (Auto) Neut % (Auto) Lymph % (Auto) [place] % (Auto) Eos % (Auto) Baso % (Auto) Immature Gran # (Auto) Neut # (Auto) Lymph # (Auto) [place] # (Auto) Eos # (Auto) Baso # (Auto) PT INR POC Sodium 142 Sodium POC Potassium 3.7 Potassium POC Chloride 106 Chloride Carbon Dioxide POC Total CO2 24 Anion Gap POC Anion Gap 17.0 POC BUN 21 H BUN Creatinine POC Creatinine 1.0 Est Cr Clr Drug Dosing Est GFR ( Amer) Est GFR (Non-Af Amer) BUN/Creatinine Ratio Glucose POC Glucose (other) 90 Calcium POC Ioniz Calcium Saad 1.25 Magnesium Total Bilirubin AST ALT Alkaline Phosphatase Troponin I 0.056 H* Total Protein Albumin Globulin Albumin/Globulin Ratio Blood Type O Negative Antibody Screen NEGATIVE 05/08/18 05/08/18 05:21 05:21 WBC 5.87 RBC 4.61 L Hgb 13.9 L POC Hgb Hct 40.9 L POC Hct MCV 88.7 MCH 30.2 MCHC 34.0 RDW Std Deviation 40.3 RDW Coeff of Ceferino 12.5 Plt Count 183 MPV 11.0 H Immature Gran % (Auto) Neut % (Auto) Lymph % (Auto) [place] % (Auto) Eos % (Auto) Baso % (Auto) Immature Gran # (Auto) Neut # (Auto) Lymph # (Auto) [place] # (Auto) Eos # (Auto) Baso # (Auto) PT INR POC Sodium Sodium 140 POC Potassium Potassium 4.0 POC Chloride Chloride 109 H Carbon Dioxide 26 POC Total CO2 Anion Gap 5.0 POC Anion Gap POC BUN BUN 17 Creatinine 0.96 POC Creatinine Est Cr Clr Drug Dosing 81.8 Est GFR ( Amer) 95.1 Est GFR (Non-Af Amer) 82.0 BUN/Creatinine Ratio 17.3 Glucose 90 POC Glucose (other) Calcium 8.8 POC Ioniz Calcium Saad Magnesium 2.4 Total Bilirubin AST ALT Alkaline Phosphatase Troponin I Total Protein Albumin Globulin Albumin/Globulin Ratio Blood Type Antibody Screen Diagnostic Findings Patient had a series of imaging studies performed at the time admission. None of these revealed any acute process or injury. No fractures. An echocardiogram was performed on 04/11/2016. This revealed normal LV systolic function. No significant valvular heart disease. Stress echocardiogram was performed on 05/02/2016. No evidence of inducible ischemia. Normal LV systolic function. ECG Additional Comments: Normal sinus rhythm. _ (1) Syncope Encounter type: Syncope type: unspecified Qualified Code(s): R55 - Syncope and collapse
--- NOTE | 2018-05-08 14:24 | Discharge Summary ---
Date of Service May 08, 2018 Admission HPI Per Admitting Provider 68yo M w/ hx of HTN and paroxsymal afib who presents after fall from his truck bed. He was in his normal state of health and just had a mechanical fall. He came to the ED because he was concerned about a fracture and was worried about becoming paraplegic. In the triage area, he had an episode of syncope, but he does report he was in significant pain at the time. No chest pain, no shortness of breath, no current lightheadedness or other symptoms apart from back pain. He was not on the telemetry montor at the time. In the ED, troponin was found to be 0.06, and his admission was requested. Principal Diagnosis no Discharge Data Allergies Allergy/AdvReac Type Severity Reaction Status Date / Time amoxicillin Allergy Mild GI Verified 05/07/18 16:17 ISSUES/VOMITING clavulanic acid Allergy Mild GI Verified 05/07/18 16:17 ISSUES/VOMITING Consultations 05/07/18 16:12 ED Decision to Admit Stat 05/08/18 07:58 Consult Cardiology Routine Ordered Studies 05/07/18 14:58 CT cervical spine wo con Stat CT chest w con Stat CT head/brain wo con Stat CT thoracic spine wo con Stat Hospital Course (1) Syncope: (2) Elevated troponin: (3) Fall: (4) Afib: (5) DVT prophylaxis: 68 yo M w/ hx of HTN and paroxsymal afib was admitted to telemetry because of syncope, after fall from his truck bed, in the triage area, he had an episode of syncope, but he does report he was in significant pain at the time. witnessed syncopal event. Likely vasovagal syncope, no any prodrome or extended period of fatigue afterwards It is possible that he suffered a transient arrhythmia, however he never had dizziness or syncope. Cardiology saw patient echo was done, feels at low risk for more malignant causes of syncope based on echo was normal, cardiology feel no need additional testing. Elevated troponin: minimally elevated. This is likely a chronic condition, do not believe he had an ischemic event yesterday. have accelerrated blood pressure, need to check blood pressure 2 time a day, and call PCP if systolic blood pressure more than 200, or diastolic blood pressure more than 100 I advised patient about fall precaution have a 3mm pulmonay nodule which could have optional follow up CT in 12 months with pcp you need to follow up with Dr. Martinez in clinic Subjective upon discharge: Doing well no complaint, Review of system upon discharge; Review of Systems Constitutional: negative weakness, or fatigue Respiratory: no cough, sputum, wheezing, or dyspnea on exertion Cardiac: No chest pain, No orthopnea, No PND, No claudication, No palpitations , Abdomen: No pain, No nausea, No vomiting, No diarrhea, No constipation, No GI bleeding Musculoskeletal: No joint pain, No muscle pain, No swelling, No calf pain, No problem reported : No dysuria, No urinary frequency, No incontinence, No hematuria Neurologic: No paralysis, No weakness, No numbness/tingling, No vertigo, No balance problems Psychiatric: No depression symptoms, No anhedonism, No anxiety, No insomnia, No substance abuse Heme: No abnormal bleeding/bruising, No clotting problems, No swollen lymph nodes, No night sweats Skin: No rash, No itch, No new/changing skin lesions, No color change, No bleeding Physical exam upon discharge: General Appearance: WD/WN, no apparent distress, Eyes: normal inspection, PERRL, EOMI, sclerae normal ENT: normal ENT inspection, hearing grossly normal, pharynx normal Neck: supple, no adenopathy, thyroid normal, no JVD, no carotid bruits, trachea midline Respiratory/Chest: chest non-tender, normal breath sounds, no respiratory distress, no accessory muscle use, breath sounds, rales, wheezing Cardiovascular: regular rate, rhythm, no JVD, no murmur Abdomen: normal bowel sounds, non tender, soft, no organomegaly, Extremities: normal range of motion, non-tender, normal inspection, no pedal edema, no calf tenderness, normal capillary refill , pelvis stable, joint has no limited range of motion, capillary refill is normal, no cyanosis clubbing 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, no motor/sensory deficits, alert, normal mood/affect, oriented x 3 Skin: normal color, warm/dry, no rash Lymphatic: no adenopathy Lab test results upon discharge: Laboratory Results - last 24 hr 05/07/18 05/07/18 05/07/18 14:58 14:58 14:58 WBC 5.98 RBC 4.61 L Hgb 14.2 POC Hgb Hct 40.6 L POC Hct MCV 88.1 MCH 30.8 MCHC 35.0 RDW Std Deviation 39.7 RDW Coeff of Ceferino 12.4 Plt Count 189 MPV 11.0 H Immature Gran % (Auto) 0.0 Neut % (Auto) 56.7 Lymph % (Auto) 31.1 [place] % (Auto) 8.9 Eos % (Auto) 2.8 Baso % (Auto) 0.5 Immature Gran # (Auto) 0.00 Neut # (Auto) 3.39 Lymph # (Auto) 1.86 [place] # (Auto) 0.53 Eos # (Auto) 0.17 Baso # (Auto) 0.03 PT 10.2 INR 1.0 POC Sodium Sodium 140 POC Potassium Potassium 3.7 POC Chloride Chloride 109 H Carbon Dioxide 25 POC Total CO2 Anion Gap 6.0 POC Anion Gap POC BUN BUN 21 H Creatinine 1.04 POC Creatinine Est Cr Clr Drug Dosing Not Reportable Est GFR ( Amer) 86.3 Est GFR (Non-Af Amer) 74.5 BUN/Creatinine Ratio 20.3 H Glucose 89 POC Glucose (other) Calcium 9.2 POC Ioniz Calcium Saad Magnesium Total Bilirubin 0.3 AST 20 ALT 40 Alkaline Phosphatase 70 Troponin I 0.058 H* Total Protein 7.0 Albumin 3.8 Globulin 3.2 Albumin/Globulin Ratio 1.2 Blood Type Antibody Screen 05/07/18 05/07/18 05/07/18 15:04 15:12 21:01 WBC RBC Hgb POC Hgb 13.6 L Hct POC Hct 40 L MCV MCH MCHC RDW Std Deviation RDW Coeff of Ceferino Plt Count MPV Immature Gran % (Auto) Neut % (Auto) Lymph % (Auto) [place] % (Auto) Eos % (Auto) Baso % (Auto) Immature Gran # (Auto) Neut # (Auto) Lymph # (Auto) [place] # (Auto) Eos # (Auto) Baso # (Auto) PT INR POC Sodium 142 Sodium POC Potassium 3.7 Potassium POC Chloride 106 Chloride Carbon Dioxide POC Total CO2 24 Anion Gap POC Anion Gap 17.0 POC BUN 21 H BUN Creatinine POC Creatinine 1.0 Est Cr Clr Drug Dosing Est GFR ( Amer) Est GFR (Non-Af Amer) BUN/Creatinine Ratio Glucose POC Glucose (other) 90 Calcium POC Ioniz Calcium Saad 1.25 Magnesium Total Bilirubin AST ALT Alkaline Phosphatase Troponin I 0.056 H* Total Protein Albumin Globulin Albumin/Globulin Ratio Blood Type O Negative Antibody Screen NEGATIVE 05/08/18 05/08/18 05:21 05:21 WBC 5.87 RBC 4.61 L Hgb 13.9 L POC Hgb Hct 40.9 L POC Hct MCV 88.7 MCH 30.2 MCHC 34.0 RDW Std Deviation 40.3 RDW Coeff of Ceferino 12.5 Plt Count 183 MPV 11.0 H Immature Gran % (Auto) Neut % (Auto) Lymph % (Auto) [place] % (Auto) Eos % (Auto) Baso % (Auto) Immature Gran # (Auto) Neut # (Auto) Lymph # (Auto) [place] # (Auto) Eos # (Auto) Baso # (Auto) PT INR POC Sodium Sodium 140 POC Potassium Potassium 4.0 POC Chloride Chloride 109 H Carbon Dioxide 26 POC Total CO2 Anion Gap 5.0 POC Anion Gap POC BUN BUN 17 Creatinine 0.96 POC Creatinine Est Cr Clr Drug Dosing 81.8 Est GFR ( Amer) 95.1 Est GFR (Non-Af Amer) 82.0 BUN/Creatinine Ratio 17.3 Glucose 90 POC Glucose (other) Calcium 8.8 POC Ioniz Calcium Saad Magnesium 2.4 Total Bilirubin AST ALT Alkaline Phosphatase Troponin I Total Protein Albumin Globulin Albumin/Globulin Ratio Blood Type Antibody Screen Per verbal report echocardiogram were unremarkable by user experience analyst Total Time Total Time Spent Total Time Spent (In Minutes): 31 Discharge Plan Discharge Items Patient Disposition: Home - Self-Care Reason For Visit: FALL, SYNCOPE Discharge Diagnosis: Syncope Condition: Fair Discharge Goals: Decrease discomfort and Diagnostic testing Activity: Resume your previous activity Non-emergency contact: Primary Care Provider Call non-emergency contact if: you have any medication questions Diet: Heart Healthy Addtl Provider Instructions: you have syncope possible due to the pain after fall. you have mild elevated troponin user experience analyst feel you could go home after echo is normal you have accelerrated blood pressure, need to check blood pressure 2 time a day , and call PCP if systolic blood pressure more than 200, or diastolic blood pressure more than 100 fall precaution and you have a 3mm pulmonay nodule which could have optional follow up CT in 12 months with pcp you need to follow up with Dr. Martinez in clinic you need to follow up with your primary care physician in 1 week, - take medication as instructed, never overdose or any misuse, or take with alcohol, because misuse of medicine may cause organ damage or , call me , or your primary care physician if have questions of discharge medicaitons. - call your primary care physician, or go to local emergency room if has any fever/chill, chest pain, shortness of breathing, nausea/vomiting/abdominal pain , facial droop/slurry speech/local weakness, or if has any questions. - fall precaution - diet as instructed - you need to follow up with your subspecialist, such as Dr. Martinez Prescriptions: Continue aspirin 81 mg Tablet,Chewable 81 mg PO QAM RF: 0 metoprolol tartrate 25 mg Tablet 25 mg PO BID RF: 0 Stand-Alone Forms: [facility] Discharge Orders: Discharge Order (Routine); Ordered 05/08/18 Ordered By: Fernando Thompson Admission Data Admit Date/Time: 05/07/18 17:23 Attending Provider: Fernando Thompson Admit Provider: Lucas Bergeron Primary Care Provider: Marcel Houston Other Providers: Lucas Bergeron ; Klaus Almeida Service: Telemetry Medical Other Interventions: Discharge Summary Assessment (RN) Last Done: 05/08/18 13:54 DC Date/Time DO NOT enter until pt leaves facility: 05/08/18 14:24
== END 2018-05-08 14:24 | disposition home or self-care (01) ==
LOC: 2N 14:45 → ED 14:45 → SUATTDRO 17:23 → 2N 18:23

== ENCOUNTER 2022-04-17 12:14 | Inpatient (IN) ==
[2022-04-17] MEDS ORDERED: SODIUM CHLORIDE 0.9% 500 ML IV STA (12:26)
[2022-04-17] MEDS ORDERED: MoRPHine SULFATE 10 MG/ML CARP/VIAL IV PRN (12:27)
[2022-04-17] MEDS ORDERED: cefTRIAXone SODIUM 2,000 MG/70 ML BAG IV STA (12:55)
[2022-04-17] MEDS ORDERED: ACETAMINOPHEN 500 MG TAB PO STA (12:55)
[2022-04-17] MEDS ORDERED: MoRPHine SULFATE 4 MG/ML 1 ML CARP\\VIAL ONE (13:01)
[2022-04-17 13:18] LABS: Basophils # (auto) 0.03 K/uL (0-0.2); Basophils % (auto) 0.2 %; Eosinophils # (auto) 0.09 K/uL (0-0.50); Eosinophils % (auto) 0.7 %; Hematocrit (blood only) 38.5 % (40.1-51.0); Hemoglobin 13.2 g/dl (14.0-18.0); Immature Granulocytes # (auto) 0.05 K/uL (0.00-0.02); Immature Granulocytes % (auto) 0.4 %; Lymphocytes # (auto) 2.68 K/uL (1.2-3.4); Lymphocytes % (auto) 19.9 %; Mean Corpuscular Hemoglobin 30.3 pg (25.0-34.0); Mean Corpuscular Hgb Conc 34.3 g/dL (32.0-36.0); Mean Corpuscular Volume 88.5 fL (80.0-100.0); Monocytes # (auto) 1.11 K/uL (0.24-0.82); Monocytes % (auto) 8.3 %; Neutrophils # (auto) 9.48 K/uL (1.4-6.5); Neutrophils % (auto) 70.5 %; Platelet Count 154 K/uL (130-400); RDW Coefficient of Variation 12.3 % (11.5-14.5); RDW Standard Deviation 40.3 fL (36.4-46.3); Red Blood Count 4.35 M/uL (4.63-6.08); White Blood Count 13.44 K/ul (4.8-10.8)
--- NOTE | 2022-04-17 13:28 | Emergency Department Note ---
Impression & Plan Acute left flank pain, Acute orchitis, Acute pyelonephritis, Leukocytosis, Failure of outpatient treatment ED Provider Note NAME: MIRIAM DENNY AGE: 71 SEX: M : 1950 ARRIVES VIA: Walk-In INFORMANT: [Patient] ED PROVIDER(S): [Brandon Najera MD] CHIEF COMPLAINT: Back and flank pain HISTORY OF PRESENT ILLNESS: The patient is a 71-year-old male who was seen yesterday and diagnosed with pyelonephritis and orchitis. His white count was 20,000. He received IV antibiotics and was offered a hospital stay but chose to go home. He was discharged on Cipro. Patient presents back today complaining of increasing left flank pain and left testicle pain. He is not functioning well at home. No vomiting. Of note, urinalysis from yesterday is already growing gram-negative bacilli. The patient presents today willing to stay in the hospital for care. He is not doing well at home. The patient has not noticed difficulty with urination. He has not had cough or congestion. He describes the most severe pain in the left testicle and this pain is moderate to severe a pain scale. PMHx/PSHx: See Below SOCIAL HISTORY: See Below. PHYSICAL EXAM: GENERAL: Patient is in no acute distress. HEENT: No acute trauma, normocephalic atraumatic, mucous membranes moist, no nasal congestion. NECK: No stridor, no adenopathy, no meningismus, trachea is midline. LUNGS: Clear to auscultation bilaterally, no wheeze, no rhonchi, breath sounds equal. HEART: Without murmurs gallops or rubs, regular rate and rhythm. ABDOMEN: Soft, mildly tender along the left side of the abdomen, no peritonitis. Back: No flank discomfort to percussion. EXTREMITIES: No cyanosis or edema, full range of motion of all the joints without pain or difficulty, no signs for acute trauma. NEUROLOGIC: Oriented x 3, no acute motor or sensory deficits, no focal weakness. SKIN: No rash, no jaundice, no diaphoresis. Groin: Markedly tender in the area of the left testicle. No scrotal cellulitis. DIFFERENTIAL DIAGNOSIS: Pyelonephritis, urinary obstruction, orchitis, epididymitis, dehydration, electrolyte imbalance, renal failure, failed outpatient management. EMERGENCY DEPARTMENT COURSE/PROCEDURES: Prior/Outside records reviewed: Prior ED visit reviewed. MEDICAL DECISION MAKING: Patient does have a white cell count elevation at 13,000, this is consistent with infection. Of note, this value has improved from yesterday's numbers. A very mild anemia was seen. There was a normal platelet count. No renal failure or significant electrolyte abnormality. No concerning liver enzyme elevation. COVID test is currently pending. On exam, the patient was primarily tender in the area of the left hemiscrotum. He was not toxic or febrile. Looking at the patient's records from yesterday, he did have an orchitis by testicular ultrasound. His urine is already growing gram-negative bacilli. He had been discharged with a diagnosis of pyelonephritis and orchitis. He had been placed on Cipro. Patient is in a lot of pain and not doing well as an outpatient. He has decided he would prefer to stay in the hospital, this was actually recommended yesterday. The patient received IV ceftriaxone for antibiotic coverage. He was given IV saline, IV morphine, oral Tylenol. I did speak with the patient, I spoke with case management, the on-call hospitalist was consulted. DISPOSITION: Hospitalization/admission is warranted. Past Med/Surg History Medical History Atrial fibrillation Brown-colored urine Dyslipidemia Hypertension Kidney stones Osteoarthritis Surgical History Fusion of spine CERVICAL History of appendectomy History of colonoscopy History of cystoscopy REMOVAL OF KIDNEY History of endoscopic sinus surgery History of herniorrhaphy INCISIONAL Torsion of intestine, bowel or colon REPAIR Family History Denies family history of Ovarian cancer Prostate cancer Myocardial infarction Breast cancer Colorectal cancer Social History Smoking Status: Never smoker Second Hand Exposure: No; Hx Alcohol Use: No Hx Substance Use: No Preferred Language: Tajik Communication Ability: Effective Visual Impairment: Limited Hearing Ability: Normal 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 Beliefs That Will Affect Care: None marital status: Current Living Situation: Spouse current occupational status: retired How many Children do You have: 1 Feels Safe at Home: Yes Childhood Exposure to Second-Hand Smoke: No caffeine: Yes during the past year weight has: remained stable Dental Care, Regularly: Yes Physical Activity Frequency: Daily Seatbelt Use: always Sunscreen Use: No Do you think of yourself as: straight/heterosexual Gender Identity: Male Assistive Devices: Glasses Allergies Allergies Allergy/AdvReac Type Severity Reaction Status Date / Time azithromycin [From Zithromax] Allergy Mild Diarrea Verified 03/23/22 08:17 clavulanic acid Allergy Mild gi issues Verified 03/23/22 08:17 [From Augmentin] Home Meds Previous Rx's Medication Instructions Recorded amlodipine 2.5 mg tablet (Norvasc) 2.5 mg PO DAILY #90 tabs 09/21/21 apixaban 5 mg tablet (Eliquis) 5 mg PO BID #180 tabs 11/22/21 metoprolol succinate 50 mg 50 mg PO QAM #90 tabs 11/22/21 tablet,extended release 24 hr atorvastatin 20 mg tablet 20 mg PO QPM #90 tabs 03/14/22 ciprofloxacin HCl 500 mg tablet 500 mg PO BID #18 tabs 04/16/22 (Cipro) oxycodone 5 mg tablet 5 mg PO Q6H PRN pain #12 tabs 04/16/22 Results & Data (ED) Vital Signs Vital Signs - 24 hr 04/17/22 12:23 Temperature 36.9 C Temperature Source Temporal Artery Scan Pulse Rate 52 L Respiratory Rate 18 Respiratory Effort / Characteristics Non-Labored Respiratory Depth Normal Respiratory Pattern Regular Blood Pressure 125/78 Blood Pressure Mean 93 Blood Pressure Position Sitting Sepsis Recent Fever Within 48 Hours No Sepsis New/Unexplained Change in Mental Status No Sepsis Action Taken by Nursing No Action Required Home Medications Current Medication List: was personally reviewed by me Laboratory Data Attestation: I reviewed the patient's lab results. 04/17/22 12:55 04/17/22 12:55 Lab Results 04/17/22 04/17/22 Range/Units 12:55 12:55 WBC 13.44 H (4.8-10.8) K/ul RBC 4.35 L (4.63-6.08) M/uL Hgb 13.2 L (14.0-18.0) g/dl Hct 38.5 L (40.1-51.0) % MCV 88.5 (80.0-100.0) fL MCH 30.3 (25.0-34.0) pg MCHC 34.3 (32.0-36.0) g/dL RDW Std Deviation 40.3 (36.4-46.3) fL RDW Coeff of Ceferino 12.3 (11.5-14.5) % Plt Count 154 (130-400) K/uL MPV 11.0 (9.4-12.4) fL Immature Gran % (Auto) 0.4 % Neut % (Auto) 70.5 % Lymph % (Auto) 19.9 % [place] % (Auto) 8.3 % Eos % (Auto) 0.7 % Baso % (Auto) 0.2 % Neut # (Auto) 9.48 H (1.4-6.5) K/uL Lymph # (Auto) 2.68 (1.2-3.4) K/uL [place] # (Auto) 1.11 H (0.24-0.82) K/uL Eos # (Auto) 0.09 (0-0.50) K/uL Baso # (Auto) 0.03 (0-0.2) K/uL Immature Gran # (Auto) 0.05 H (0.00-0.02) K/uL Sodium 138 (136-145) mmol/L Potassium 4.2 (3.5-5.1) mmol/L Chloride 107 (98-107) mmol/L Carbon Dioxide 26 (21-32) mmol/L Anion Gap 5 (3-11) BUN 18 (6-23) mg/dl Creatinine 1.08 (0.6-1.4) mg/dl Est Cr Clr Drug Dosing 68.8 ml/min Est GFR ( Amer) 80.7 ml/min Est GFR (Non-Af Amer) 69.7 ml/min BUN/Creatinine Ratio 16.7 (10-20) Glucose 86 (70-99(Fasting)) mg/dl Calcium 9.9 (8.5-10.1) mg/dl Total Bilirubin 0.8 (0.2-1.0) mg/dl AST 13 (13-39) U/L ALT 25 (7-52) U/L Alkaline Phosphatase 67 (34-104) U/L Total Protein 6.9 (6.0-8.3) gm/dl Albumin 3.8 (3.4-5.0) gm/dl Globulin 3.1 (2.5-4.0) gm/dl Albumin/Globulin Ratio 1.2 (0.9-2) Administered Medications Discontinued Medications Acetaminophen (Acetaminophen 500 Mg Tab) 1,000 mg PO NOW STA Stop: 04/17/22 12:56 Last Admin: 04/17/22 13:04 Dose: 1,000 mg Documented By: AP Sodium Chloride (Nss) 500 mls @ 999 mls/hr IV .Q31M STA Stop: 04/17/22 12:56 Last Infusion: 04/17/22 13:45 Dose: 0 mls/hr Documented By: Admin: 04/17/22 13:04 Dose: 999 mls/hr Documented By: KIM Ceftriaxone Sodium (Rocephin) 2,000 mg in 70 mls @ 140 mls/hr IV NOW STA Stop: 04/17/22 13:24 Last Admin: 04/17/22 13:18 Dose: 140 mls/hr Documented By: ESTEPHANIA Morphine Sulfate (Morphine Sulfate 4 Mg/Ml 1 Ml Carp\Vial) Confirm Administered Dose 4 mg .ROUTE .STK-MED ONE Stop: 04/17/22 13:02 Last Admin: 04/17/22 13:04 Dose: 4 mg Documented By: AP Discharge Plan Visit Data Chief Complaint: Back Injury/Pain Stated Complaint: LOWER BACK PAIN, UTI SX ED Provider: Brandon Najera Discharge Problem: Acute left flank pain, Acute orchitis, Acute pyelonephritis, Leukocytosis, Failure of outpatient treatment Patient Disposition: Admitted As Inpatient Condition: Fair Forms Stand Alone Forms: My [facility] Prescriptions Prescriptions: No Action amlodipine [Norvasc] 2.5 mg tablet 2.5 mg PO DAILY Qty: 90 3RF metoprolol succinate 50 mg tablet extended release 24 hr 50 mg PO QAM Qty: 90 3RF Eliquis 5 mg tablet 5 mg PO BID Qty: 180 1RF atorvastatin 20 mg tablet 20 mg PO QPM Qty: 90 3RF ciprofloxacin HCl [Cipro] 500 mg tablet 500 mg PO BID Qty: 18 0RF oxycodone 5 mg tablet 5 mg PO Q6H PRN (Reason: pain) Qty: 12 0RF Referrals Referrals: Sharon Martínez MD [Primary Care Provider] -
--- NOTE | 2022-04-17 13:41 | History & Physical Report ---
Date of Service April 17, 2022 Assessment & Plan (1) Acute orchitis: Plan: Complicated UTI with left epididymoorchitis - Downtrending leukocytosis - Urine culture with GNB pending speciation Scrotal ultrasound: 1. Left-sided epididymoorchitis with small hydrocele. 2. Indeterminate 4 mm echogenic structure within the right testicle. As a precautionary measure, a 3 month follow-up testicular ultrasound is recommended. CTA/P:1. Unchanged right renal calculus. No ureteral calculi or hydronephrosis.2. No bowel obstruction or bowel wall thickening.3. Prostamegaly with suggested chronic bladder outlet obstruction.4. 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 Additional findings as above. ? Pyelo given left flank tenderness worsening, no CVA tenderness on admission and not reported on CT Given concurrent obstructive uropathy patient is at increased risk of E. coli and Pseudomonas, will cover with cefepime pending speciation results. 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 Stress echocardiogram for subsequent left-sided chest pain was negative for ischemia. - Doing well on admit, no exacerbation DVT PPx: on eliquis Diet: HH Dispo: Med/Surg Code: Full (2) Hypertension: (3) Paroxysmal atrial fibrillation: History of Present Illness Primary Care Provider: Sharon Martínez MD Madhav Bender is a 71-year-old male with a past medical history of hypertension, pelvic fracture, A. fib who presented with an erythematous enlarged tender left testicle. CT without stone or hydronephrosis. Scrotum and testicular ultrasound shows hyperemia of the testicle consistent with orchitis. He has a elevated white blood cell count, and infected appearing UA. Patient reports he has had UTI symptoms recently. Lactic acid and procalcitonin are normal. Blood cultures are pending. Patient received IV fluids and cefepime with clinical improvement. Case was discussed with urology at that time who agreed with outpatient management as long as patient was afebrile and pain was well controlled. Patient did not wish to be admitted to the hospital, was discharged on urology with return precautions. Soreness in groin last 2-3 days, started spreading up to L low back. No tescicular swelling 'but just real sore.' Was seen in ER and did nto wish to com ein the hospital, but back was getting more sore overnight and patient agreed to return if pain was not improved. Pain not improved, so he returned for additional observatio nand care. Testicular pain is about the same the same maybe a little worse, the back pain seems worse. not helped with ice. No fevers, chills or sweats No dysuria Peeing normally 'no trouble at all.' Denies weak stream, LUTS symptoms, dribbling. Denies history of prostate problems. No blood in urine. Has a sore spot in his R back after 4 wheeling injury, but 'doing ok no pain usually.' NKDA No heart problems, lung problems Med List: lipitor 20 hs, metoprolol 50mg AM, eliquis 5mg twice daily, amlodipine 2.5md daily Allergies Allergy/AdvReac Type Severity Reaction Status Date / Time azithromycin [From Zithromax] Allergy Mild Diarrea Verified 03/23/22 08:17 clavulanic acid Allergy Mild gi issues Verified 03/23/22 08:17 [From Augmentin] Home Medications Medication Instructions Recorded Confirmed Type amlodipine 2.5 mg tablet (Norvasc) 2.5 mg PO DAILY #90 tabs 09/21/21 03/23/22 Rx apixaban 5 mg tablet (Eliquis) 5 mg PO BID #180 tabs 11/22/21 03/23/22 Rx metoprolol succinate 50 mg 50 mg PO QAM #90 tabs 11/22/21 03/23/22 Rx tablet,extended release 24 hr atorvastatin 20 mg tablet 20 mg PO QPM #90 tabs 03/14/22 03/23/22 Rx ciprofloxacin HCl 500 mg tablet 500 mg PO BID #18 tabs 04/16/22 Rx (Cipro) oxycodone 5 mg tablet 5 mg PO Q6H PRN pain #12 tabs 04/16/22 Rx Past Med/Surg History Medical History Atrial fibrillation Brown-colored urine Dyslipidemia Hypertension Kidney stones Osteoarthritis Surgical History Fusion of spine CERVICAL History of appendectomy History of colonoscopy History of cystoscopy REMOVAL OF KIDNEY History of endoscopic sinus surgery History of herniorrhaphy INCISIONAL Torsion of intestine, bowel or colon REPAIR Family History Denies family history of Ovarian cancer Prostate cancer Myocardial infarction Breast cancer Colorectal cancer Social History Smoking Status: Never smoker Second Hand Exposure: No; Hx Alcohol Use: No Hx Substance Use: No Preferred Language: German Communication Ability: Effective Visual Impairment: Limited Hearing Ability: Normal Shaper Hand Required: No Beliefs That Will Affect Care: None marital status: Current Living Situation: Spouse current occupational status: retired How many Children do You have: 1 Feels Safe at Home: Yes Childhood Exposure to Second-Hand Smoke: No caffeine: Yes during the past year weight has: remained stable Dental Care, Regularly: Yes Physical Activity Frequency: Daily Seatbelt Use: always Sunscreen Use: No Do you think of yourself as: straight/heterosexual Gender Identity: Male Assistive Devices: Glasses Review of Systems Review of Systems: All systems reviewed & are unremarkable except as noted in HPI & below Physical Exam Physical Exam: General: A&Ox3. NAD. Cooperative. HEENT: Atraumatic, normocephalic. PERLLA, Vision/hearing grossly intact Pulm: CTAB A&P. -wheezes, -rales, -rhonchi. Symmetrical chest rise. No increased work of breathing. No respiratory distress. Cardiac: RRR, -mrg. Radial pulses intact and symmetrical. Abdominal: Nontender, nondistended, soft. BS present. : L testicular tenderness and swelling, L pubic tenderness. Mild LL back tenderness, no CVA tenderness at time of Results & Data Results & Data ([facility]) Vital Signs (Past 12 Hours) Vital Signs Temp Pulse Resp BP 04/17/22 12:23 36.9 C 52 L 18 125/78 PG Care Time/CCT Total # of Minutes Spent Total Time Spent with Patient: Total time spent is greater than 50% in coordination of care (as documented) at patient's floor/unit and/or counseling patient: Coding Level of Care Code 83377 INT INP/OBS CARE 2/55MIN Diagnoses Acute orchitis N45.2 Hypertension I10 Paroxysmal atrial fibrillation I48.0
[2022-04-17 13:42] LABS: Albumin Globulin Ratio 1.2 (0.9-2); Albumin Level 3.8 gm/dl (3.4-5.0); BUN Creatinine Ratio 16.7 (10-20); Bilirubin,Total 0.8 mg/dl (0.2-1.0); Calcium 9.9 mg/dl (8.5-10.1); Creatinine Clr Calc Pharmacy 68.8 ml/min; Est GFR (African American) 80.7 ml/min; Est GFR (Non-African American) 69.7 ml/min; Globulin 3.1 gm/dl (2.5-4.0); Potassium 4.2 mmol/L (3.5-5.1); Total Protein 6.9 gm/dl (6.0-8.3)
[2022-04-17] MEDS ORDERED: POLYETHYLENE (MIRALAX) 17 GM PACK PO PRN (16:34)
[2022-04-17] MEDS ORDERED: ACETAMINOPHEN 325 MG TAB PO PRN (16:34)
[2022-04-17] MEDS ORDERED: MoRPHine SULFATE 4 MG/ML 1 ML CARP\\VIAL IV PRN (17:00)
[2022-04-17] MEDS: CEFEPIME 2,000 MG in SYRINGE 0 ML IV SCH (18:01)
[2022-04-17] MEDS ORDERED: ATORVASTATIN 20 MG TAB PO SCH (21:00)
[2022-04-17] MEDS: APIXABAN 5 MG TABLET PO SCH (21:30)
[2022-04-17] MEDS ORDERED: Nursing to Pharmacy Communication SCH (22:00)
[2022-04-18] MEDS: CEFEPIME 2,000 MG in SYRINGE 0 ML IV SCH ×2 (01:22→10:18)
--- NOTE | 2022-04-18 06:35 | Electrocardiogram Report ---
Test Reason : Blood Pressure : / mmHG Vent. Rate : 044 BPM Atrial Rate : 044 BPM P-R Int : 144 ms QRS Dur : 092 ms QT Int : 464 ms P-R-T Axes : -18 032 025 degrees QTc Int : 396 ms Marked sinus bradycardia with sinus arrhythmia Abnormal ECG When compared with ECG of 01-MAY-2021 19:40, Vent. rate has decreased BY 46 BPM Incomplete right bundle branch block is no longer Present Confirmed by Afshin Casey ([id number]) on 04/18/2022 6:35:40 AM Referred By: REFERRED SELF Confirmed By:Afshin Casey
[2022-04-18 07:42] LABS: Basophils # (auto) 0.03 K/uL (0-0.2); Basophils % (auto) 0.3 %; Eosinophils # (auto) 0.19 K/uL (0-0.50); Eosinophils % (auto) 2.1 %; Hematocrit (blood only) 39.1 % (40.1-51.0); Hemoglobin 13.2 g/dl (14.0-18.0); Immature Granulocytes # (auto) 0.03 K/uL (0.00-0.02); Immature Granulocytes % (auto) 0.3 %; Lymphocytes % (auto) 23.2 %; Mean Corpuscular Hemoglobin 30.1 pg (25.0-34.0); Mean Corpuscular Hgb Conc 33.8 g/dL (32.0-36.0); Mean Corpuscular Volume 89.3 fL (80.0-100.0); Mean Platelet Volume 10.6 fL (9.4-12.4); Monocytes # (auto) 0.72 K/uL (0.24-0.82); Monocytes % (auto) 7.9 %; Neutrophils # (auto) 5.99 K/uL (1.4-6.5); Neutrophils % (auto) 66.2 %; Platelet Count 167 K/uL (130-400); RDW Coefficient of Variation 12.1 % (11.5-14.5); RDW Standard Deviation 40.2 fL (36.4-46.3); Red Blood Count 4.38 M/uL (4.63-6.08); White Blood Count 9.06 K/ul (4.8-10.8)
[2022-04-18 08:02] LABS: BUN Creatinine Ratio 15.5 (10-20); Calcium 9.3 mg/dl (8.5-10.1); Est GFR (African American) 74.1 ml/min; Est GFR (Non-African American) 63.9 ml/min
[2022-04-18] MEDS: amLODIPine BESYLATE 5 MG TAB PO SCH (08:24)
[2022-04-18] MEDS: ATORVASTATIN 20 MG TAB PO SCH (08:24)
[2022-04-18] MEDS: APIXABAN 5 MG TABLET PO SCH ×2 (08:25→20:22)
[2022-04-18] MEDS: METOPROLOL SUCC 50MG EXT REL TAB PO SCH (08:25)
--- NOTE | 2022-04-18 08:41 | Hospitalist Progress Note ---
Date of Service April 18, 2022 Assessment & Plan (1) Acute orchitis: Plan: Complicated UTI with left epididymoorchitis/prostatitis pain control required instituting Ultram p.o. therapy at this time - Urine culture with pansensitive E coli does not have dysuria Scrotal ultrasound: 1. Left-sided epididymoorchitis with small hydrocele. 2. Indeterminate 4 mm echogenic structure within the right testicle. As a precautionary measure, a 3 month follow-up testicular ultrasound is recommended. CTA/P:1. Unchanged right renal calculus. No ureteral calculi or hydronephrosis.2. No bowel obstruction or bowel wall thickening.3. Prostamegaly with suggested chronic bladder outlet obstruction.4. 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 Stress echocardiogram for subsequent left-sided chest pain was negative for ischemia. - Doing well on admit, no exacerbation DVT PPx: on eliquis Diet: Dispo: Med/Surg Code: Full (2) Hypertension: (3) Paroxysmal atrial fibrillation: Admission and Anticipated Discharge Date Admission Date: April 17, 2022 Subjective Patient still has left-sided testicular pain which radiates up to his groin. He has no intra-abdominal pain or discomfort. Has not been nauseous. Review of Systems Review of Systems: Mild distress and fatigue no headache, no visual changes no speech or swallowing issues no chest pain, pressure or palpitations no shortness of breath, cough or wheezes no abdominal pain, nausea or vomiting, diarrhea or constipation no dysuria, hematuria or frequency she is not left-sided or Ketek pain with radiation into his inguinal area no focal joint pain or swelling no back pain, CVA tenderness or radicular pain no bruising, bleeding or rashes no focal signs of weakness or numbness or altered sensation no complaints of anxiety or depression.. Physical Exam Physical Exam: The patient appeared stable Vital signs as documented. Lungs are clear to auscultation and appear unlabored Cardiac exam, Rhythm is regular.. No murmurs, rubs or gallops. Abdominal exam reveals normal bowel sounds, soft non tender, no masses Extremities are nonedematous and both pedal pulses are normal. Neurologic exam is alert and oriented, no focal loss of strength or sensation Testicles not swollen is markedly tender to touch and move he has no inguinal hernia or lymphadenopathy but pain radiates from his testicle up to his left groin Skin is without bruises or rashes Psychologically is without concerns for anxiety or depression. Results & Data Results & Data ([facility]) Vital Signs (Past 12 Hours) Vital Signs Temp Pulse Resp BP Pulse Ox O2 Del Method 04/18/22 07:08 97.7 F 51 L 16 136/73 96 Room Air 04/17/22 21:18 97.9 F 53 L 18 121/70 98 Room Air PG Care Time/CCT Total # of Minutes Spent Total Time Spent with Patient: Total time spent is greater than 50% in coordination of care (as documented) at patient's floor/unit and/or counseling patient: Coding Level of Care Code 96187 SUB INP/OBS CARE 2/35MIN Diagnoses Acute orchitis N45.2 Hypertension I10 Paroxysmal atrial fibrillation I48.0
[2022-04-18] MEDS ORDERED: traMADol HCL 50 MG TABLET PO STA (12:35)
[2022-04-18] MEDS ORDERED: cefTRIAXone SODIUM 2,000 MG in DEXTROSE 5% 50 ML IV SCH (18:00)
[2022-04-18] MEDS: traMADol HCL 50 MG TABLET PO PRN (19:28)
[2022-04-19] MEDS: traMADol HCL 50 MG TABLET PO PRN (05:13)
[2022-04-19] MEDS: METOPROLOL SUCC 50MG EXT REL TAB PO SCH (08:31)
[2022-04-19] MEDS: APIXABAN 5 MG TABLET PO SCH (08:32)
[2022-04-19] MEDS: ATORVASTATIN 20 MG TAB PO SCH (08:32)
[2022-04-19] MEDS: amLODIPine BESYLATE 5 MG TAB PO SCH (08:32)
[2022-04-19 12:13] LABS: GC (Neis gonorrhoeae) RNA Not Detected (NotDetected)
--- NOTE | 2022-04-19 17:14 | Discharge Summary ---
Date of Service April 19, 2022 Admission HPI Per Admitting Provider Madhav Bender is a 71-year-old male with a past medical history of hypertension, pelvic fracture, A. fib who presented with an erythematous enlarged tender left testicle. CT without stone or hydronephrosis. Scrotum and testicular ultrasound shows hyperemia of the testicle consistent with orchitis. He has a elevated white blood cell count, and infected appearing UA. Patient reports he has had UTI symptoms recently. Lactic acid and procalcitonin are normal. Blood cultures are pending. Patient received IV fluids and cefepime with clinical improvement. Case was discussed with urology at that time who agreed with outpatient management as long as patient was afebrile and pain was well controlled. Patient did not wish to be admitted to the hospital, was discharged on urology with return precautions. Soreness in groin last 2-3 days, started spreading up to L low back. No tescicular swelling 'but just real sore.' Was seen in ER and did nto wish to com ein the hospital, but back was getting more sore overnight and patient agreed to return if pain was not improved. Pain not improved, so he returned for additional observatio nand care. Testicular pain is about the same the same maybe a little worse, the back pain seems worse. not helped with ice. No fevers, chills or sweats No dysuria Peeing normally 'no trouble at all.' Denies weak stream, LUTS symptoms, dribbling. Denies history of prostate problems. No blood in urine. Has a sore spot in his R back after 4 wheeling injury, but 'doing ok no pain usually.' NKDA No heart problems, lung problems Med List: lipitor 20 hs, metoprolol 50mg AM, eliquis 5mg twice daily, amlodipine 2.5md daily Principal Diagnosis orchitis/prostatits testicular pain and swelling Discharge Exam The patient appeared stable Vital signs as documented. Patient is exam shows a circumcised male his right testicle is normal size to small and soft. His left testicle is slightly enlarged it is tender as well as the vas deferens he also may have some prominence of the venous system. Mostly consistent with orchitis. Discharge Data Allergies Allergy/AdvReac Type Severity Reaction Status Date / Time azithromycin [From Zithromax] Allergy Mild Diarrea Verified 03/23/22 08:17 clavulanic acid Allergy Mild gi issues Verified 03/23/22 08:17 [From Augmentin] Consultations 04/17/22 13:25 ED Decision to Admit Stat Hospital Course (1) Acute orchitis: Complicated UTI with left epididymoorchitis/prostatitis pain control required instituting Ultram p.o. therapy at this time - Urine culture with pansensitive E coli does not have dysuria discharged on Keflex for 2-week therapy urology follow-up, patient after tramadol for pain control Scrotal ultrasound: 1. Left-sided epididymoorchitis with small hydrocele. 2. Indeterminate 4 mm echogenic structure within the right testicle. As a precautionary measure, a 3 month follow-up testicular ultrasound is recommended. CTA/P:1. Unchanged right renal calculus. No ureteral calculi or hydronephrosis.2. No bowel obstruction or bowel wall thickening.3. Prostamegaly with suggested chronic bladder outlet obstruction.4. 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 Pyelonephrosis ruled out by CT scan Paroxysmal atrial fibrillation On Eliquis EKG shows sinus bradycardia without acute changes - Continue Metoprolol patient is asymptomatic from lower heart rate HTN - Amlodipine continued, normotensive during hospital stay Past pelvic fracture Sustained after he slipped getting out of bed, did not have a syncopal episode at that time but did have a syncopal episode in the ER Saw cardiology at that time, August/2021, echo was with normal LV function and EKG without acute changes. Stress echocardiogram for subsequent left-sided chest pain was negative for ischemia. -No increased pain on time of discharge (2) Hypertension: (3) Paroxysmal atrial fibrillation: Total Time Total Time Spent Total Time Spent (In Minutes): It required greater than 30 minutes to prepare this patient for discharge Discharge Plan Discharge Items Patient Disposition: Home - Self-Care Reason For Visit: CONTINUATION OF CARE Discharge Diagnosis: epididymitis/prostatis Condition on Discharge: Fair Activity: Per Instructions section Activity Comment: no intentional exercise until follow up with urology Non-emergency contact: Primary Care Provider Call non-emergency contact if: your symptoms worsen Follow-up/Referrals: Aden Gómez MD [Physician] - (Office will call patient with an appointment date and time) Sharon Martínez MD [Primary Care Provider] - 04/27/22 11:30 am Diet: Regular Addtl Attending Provider Instructions: Epididymitis isan inflammation of the coiled tube, called the epididymis, at the back of the testicle. Symptoms of epididymitis might include: A swollen, discolored or warm scrotum. Testicle pain and tenderness, usually on one side, that often comes on slowly. Pain when you pass urine you will be prescribed an antibiotic to take for 12 additional days, drink plenty of fluids to assure good urine flow and follow up with urology Pending Studies at Discharge: No Stand-Alone Forms: My [facility], Smoking Cessation Medications and DC Order Prescriptions: New cephalexin 500 mg capsule 500 mg PO BID 12 Days Qty: 24 0RF tramadol 50 mg Tablet 50 - 100 mg PO Q4H PRN (Reason: pain, moderate) Qty: 20 0RF Continued amlodipine [Norvasc] 2.5 mg tablet 2.5 mg PO DAILY Qty: 90 3RF metoprolol succinate 50 mg tablet extended release 24 hr 50 mg PO QAM Qty: 90 3RF Eliquis 5 mg tablet 5 mg PO BID Qty: 180 1RF atorvastatin 20 mg tablet 20 mg PO QPM Qty: 90 3RF Discontinued ciprofloxacin HCl [Cipro] 500 mg tablet 500 mg PO BID Qty: 18 0RF oxycodone 5 mg tablet 5 mg PO Q6H PRN (Reason: pain) Qty: 12 0RF Discharge Orders: Discharge Order (Routine); Ordered 04/19/22 Ordered By: Milton Rodríguez Admission Data Admit Date/Time: 04/17/22 14:06 Attending Provider: Milton Rodríguez Admit Provider: Renaldo Nieto Primary Care Provider: Sharon Martínez Other Providers: Renaldo Nieto Other Interventions: Discharge Summary Assessment (RN) Last Done: 04/19/22 11:20 Coding Level of Care Code HOSP INP/OBS DISCH >30 MIN Diagnoses Acute orchitis N45.2 Hypertension I10 Paroxysmal atrial fibrillation I48.0
== END 2022-04-19 12:59 | disposition home or self-care (01) | DRG 728 ==
LOC: ED 12:14 → SUATTDRO 14:06 → 3N 14:06

== ENCOUNTER 2024-12-13 06:34 | Inpatient (IN) ==
--- NOTE | 2024-12-06 14:45 | Anesthesiology Consultation ---
Date of Service December 06, 2024 Assessment & Plan (1) Encounter for pre-operative examination: - Infectious disease screening: Per assessment on 12/06/24- No known recent infectious disease contacts or current infectious disease symptoms. - Cardiology visit (08/15/24): "Patient doing well from a cardiac standpoint. No recurrent symptoms to suggest afib. Clinically in sinus rhythm today. Very active without limiting cardiac symptoms. He has rare episodes of afib and had bradycardia in the past on metoprolol. Since episodes have been very infrequent continue to monitor symptoms for now. Continue Eliquis. BP well controlled, continue amlodipine 5 mg daily. Followup 6 months or sooner as needed." - Patient acceptable risk for surgery pending surgeon-ordered cardiology preop evaluation ([facility] cardio, appt 12/10). Chart Review Chart Review: Patient NOT seen in Pre Admission Testing History Surgery Operation Date: 12/13/24 12:10 Proposed Procedures p C7-T1 Anterior Cervical Discectomy and Fusion with Hardware Removal C6-C7 - Rico Batres, Height/Weight Height: 5 ft 10.5 in Weight: 81.647 kg Allergies Allergy/AdvReac Type Severity Reaction Status Date / Time azithromycin [From Zithromax] AdvReac Mild Diarrea Verified 12/06/24 12:12 clavulanic acid AdvReac Mild GI issues Verified 12/06/24 12:12 [From Augmentin] Medications Home Medications Medication Instructions Recorded Confirmed Last Taken apixaban 5 mg tablet (Eliquis) 5 mg PO BID #180 tabs 01/14/24 12/06/24 06/28/24 08:00 atorvastatin 20 mg tablet 20 mg PO QPM #90 tabs 10/22/24 12/06/24 Unknown amlodipine 5 mg tablet 5 mg PO QAM #90 tabs 10/23/24 12/06/24 Unknown prednisone 10 mg tablet 10 mg PO DIRECTED #20 tabs 11/24/24 12/06/24 Unknown tramadol 50 mg tablet 50 mg PO Q8H PRN pain #18 tabs 12/03/24 12/06/24 Unknown oxycodone 5 mg tablet 5 mg PO Q6 PRN pain #12 tabs 12/04/24 12/06/24 Unknown Past Medical History Medical History Atrial fibrillation (2017) Taking Eliquis Follows with [facility] cardio Dyslipidemia Per records History of COVID-19 02/2021- mild cold symptoms, resolved History of kidney stones History of pelvic fracture 03/2020- 4 liu accident "Resolved" Hypertension Per records Osteoarthritis Past Family History Family History Denies family history of Ovarian cancer Prostate cancer Myocardial infarction Breast cancer Colorectal cancer Past Surgical History Surgical History Fusion of spine Cervical > limited side to side ROM ?C4-6 per patient History of appendectomy History of colonoscopy History of cystoscopy Removal of kidney stones History of endoscopic sinus surgery History of herniorrhaphy Incisional Torsion of intestine, bowel or colon Repaired Social History Smoking Status: Never smoker Do You Dip or Chew Tobacco: No Hx Alcohol Use: No Alcohol type: hard liquor alcohol intake frequency: holidays/special occasions only Hx Substance Use: No substance use type: does not use Lab Results Anesthesia Preop Results Results Anesthesia Widget: WBC 6.56 K/ul (4.8-10.8) 12/06/24 Hgb 14.6 g/dl (14.0-18.0) 12/06/24 Hct 42.5 % (42.0-52.0) 12/06/24 Plt 164 K/uL (130-400) 12/06/24 Na 136 mmol/L (136-145) 12/06/24 K 4.0 mmol/L (3.5-5.1) 12/06/24 Cl 104 mmol/L (98-107) 12/06/24 CO2 27 mmol/L (21-32) 12/06/24 BUN 23 mg/dl (6-23) 12/06/24 Creat 0.89 mg/dl (0.6-1.4) 12/06/24 Glucose Level 116 mg/dl (70-99(Fasting)) H 12/06/24 PT 10.4 Seconds (9.0-12.0) 12/06/24 PTT 32 Seconds (21-31) H 12/06/24 INR 1.0 (0.9-1.1) 12/06/24 Urine Color Yellow 12/06/24 Urine Appearance Clear (Clear) 12/06/24 Urine pH 6.5 (4.5-7.5) 12/06/24 Urine Specific [place] 1.022 (1.000-1.030) 12/06/24 Urine Protein Negative (Negative) 12/06/24 Urine Glucose (UA) Negative (Negative) 12/06/24 Urine Ketones Negative (Negative) 12/06/24 Urine Blood Negative (Negative) 12/06/24 Urine Nitrite Negative (Negative) 12/06/24 Urine Bilirubin Negative (Negative) 12/06/24 Urine Urobilinogen Negative (Negative) 12/06/24 Urine Leukocyte Esterase Negative (Negative) 12/06/24 Blood Type O Negative 12/06/24 Antibody Screen NEGATIVE 12/06/24 Testing Electrocardiogram Date: 12/06/24 NSR at 64bpm. unconfirmed report. Chest X-Ray Date: 12/06/24 Findings: + NAD
[2024-12-13] MEDS ORDERED: MIDAZOLAM HCL 1 MG/ML 2ML VIAL ONE (06:51)
[2024-12-13] MEDS ORDERED: PROPOFOL IV EMULSION 10 MG/ML 20 ML VIAL IV ONE (06:51)
[2024-12-13] MEDS ORDERED: LIDOCAINE 2% 2 ML VIAL/AMP(20MG/ML) INFIL ONE (06:51)
[2024-12-13] MEDS ORDERED: ROCURONIUM BROMIDE 10 MG/ML 5 ML VIAL IV ONE ×2 (06:51→08:42)
[2024-12-13] MEDS ORDERED: DEXAMETHASONE SOD INJ 4 MG/ML VIAL ONE (06:51)
[2024-12-13] MEDS ORDERED: SUGAMMADEX SODIUM 200 MG/2 ML VIAL IV ONE (06:52)
[2024-12-13] MEDS: LR 15ML/HR IV SCH (07:25)
[2024-12-13] MEDS: CeleBREX 200 MG CAP PO SCH (07:25)
[2024-12-13] MEDS: GABAPENTIN 300 MG CAP PO SCH (07:25)
[2024-12-13] MEDS: LR 60ML/HR IV SCH (07:25)
[2024-12-13] MEDS: ACETAMINOPHEN 500 MG TAB PO SCH (07:25)
--- NOTE | 2024-12-13 07:37 | History & Physical Report ---
Date of Service December 13, 2024 Assessment & Plan (1) Cervical disc disease: Plan: Anterior cervical discectomy and fusion C7-T1 removal plate C6-C7 History of Present Illness Chief Complaint: Neck and arm pain Primary Care Provider: Sharon Martínez MD This is a 74-year-old male who presents with persistent neck and arm pain and failing course of nonoperative care is here for surgical invention. Allergies Allergy/AdvReac Type Severity Reaction Status Date / Time azithromycin [From Zithromax] AdvReac Mild Diarrea Verified 12/13/24 06:51 clavulanic acid AdvReac Mild GI issues Verified 12/13/24 06:51 [From Augmentin] Home Medications Medication Instructions Recorded Confirmed Type apixaban 5 mg tablet (Eliquis) 5 mg PO BID #180 tabs 01/14/24 12/13/24 Rx atorvastatin 20 mg tablet 20 mg PO QPM #90 tabs 10/22/24 12/13/24 Rx amlodipine 5 mg tablet 5 mg PO QAM #90 tabs 10/23/24 12/13/24 Rx tramadol 50 mg tablet 50 mg PO Q8H PRN pain #18 tabs 12/03/24 12/13/24 Rx oxycodone 5 mg tablet 5 mg PO Q6 PRN pain #12 tabs 12/04/24 12/13/24 Rx Past Med/Surg History Problem List Cervical disc disease (Acute) Nondisplaced fracture of fifth left metatarsal bone BPH (benign prostatic hyperplasia) Hematuria Epididymitis, left Failure of outpatient treatment (Acute) Olecranon bursitis of left elbow Elevated LFTs Pelvic hematoma L5 vertebral fracture Brown-colored urine Dysuria Nasal sinus congestion Early satiety Paroxysmal atrial fibrillation History of colon polyps Encounter for pre-operative examination Medical History Atrial fibrillation (2017) Taking Eliquis Follows with [facility] cardio Dyslipidemia Per records History of COVID-19 02/2021- mild cold symptoms, resolved History of kidney stones History of pelvic fracture 03/2020- 4 liu accident "Resolved" Hypertension Per records Osteoarthritis Surgical History Fusion of spine Cervical > limited side to side ROM ?C4-6 per patient History of appendectomy History of colonoscopy History of cystoscopy Removal of kidney stones History of endoscopic sinus surgery History of herniorrhaphy Incisional Torsion of intestine, bowel or colon Repaired Family History Denies family history of Ovarian cancer Prostate cancer Myocardial infarction Breast cancer Colorectal cancer Social History Smoking Status: Never smoker Second Hand Exposure: No; Do You Dip or Chew Tobacco: No; Tobacco Cessation Education Requested by Patient: No Hx Alcohol Use: No Hx Substance Use: No Preferred Language: Japanese Communication Ability: Effective Visual Impairment: Limited Hearing Ability: Normal Proof Reader Required: No Beliefs That Will Affect Care: None marital status: Current Living Situation: Spouse current occupational status: retired How many Children do You have: 1 Other Information That Helps Us Care for You: No Feels Safe at Home: Yes Safety Concerns: Feels Safe At This Time Childhood Exposure to Second-Hand Smoke: No Diet: regular caffeine: Yes during the past year weight has: remained stable Dental Care, Regularly: Yes Physical Activity Frequency: Daily Seatbelt Use: always Sunscreen Use: No Do you think of yourself as: straight/heterosexual Gender Identity: Male Assistive Devices: Glasses Physical Exam Physical Exam: Patient is alert and oriented Heart regular rhythm Lungs clear Results & Data Results & Data Vital Signs (Past 12 Hours) Vital Signs Temp Pulse Resp BP Pulse Ox O2 Del Method 12/13/24 06:54 36.5 C 88 20 100/79 98 Room Air
--- NOTE | 2024-12-13 07:37 | History & Physical Bridge Note ---
Date of Service December 13, 2024 History & Physical Bridge Note I have examined the patient, reviewed the History & Physical and in the interval since the performance of the History & Physical I have noted the following changes of clinical significance: no changes noted
[2024-12-13] MEDS ORDERED: PHENYLEPHRINE 100MCG/ML 5ML SYR ONE ×2 (08:09)
--- NOTE | 2024-12-13 09:10 | Operative Report ---
Post Operative Report Pre & Post Diagnosis Operation Date: 12/13/24 07:45 Pre-Op Diagnosis: Herniation of Cervical Intervertebral Disc with Radiculopathy Post-Op Diagnosis: Herniation of Cervical Intervertebral Disc with Radiculopathy I identified the patient and participated in the time-out.: Yes Procedure Operation Date: 12/13/24 07:45 Actual Procedures #1 removal of anterior cervical plate and screws C6-C7. #2 exploration of fusion C6-C7. #3 anterior cervical discectomy with bilateral foraminotomies C7- T1. #4 anterior cervical arthrodesis C7-T1. #5 placement of Spira integrated cage filled with os design bone graft C7-T1 Surgeon Rico Batres, Quality Assurance Representative Anthony Shea Estimated Blood Loss 10 Findings Consistent with Post-Op Diagnosis Specimens None Indications This is a 74-year-old male presents publish diagnosis of failing course of nonoperative care is here for surgical invention. Description of Procedure Patient met with identified and form was obtained. Patient was then taken to the operative suite underwent ablation placed in spine position on the Maximo table with head in the [place] mophead sewer. All bony promises well-padded eyes inspected to ensure no external pressure placed upon them. This point the anterior cervical spine was prepped and draped normal sterile fashion. The assistance of fluoroscopy identified the C7 vertebral body and a transverse incision was placed on the right anterior aspect of the cervical spine overlying this region. Blunt dissection with the assistance of bipolar electrocautery performed down to and exposing the anterior cervical spine plate and screws C6- C7 in the C7-T1 disc space. A self-retaining retractor was placed. I then removed the anterior cervical plate at C6-C7. Explored the fusion mass known to be mature and intact. I then performed a complete discectomy of C7-T1 out to the uncovertebral joints bilaterally. Gabriels distracting pins utilized to assist in visualization. Removed all posterior annular fibers longitudinal ligament bilateral foraminotomies performed. Endplates burred to subcortical bone bone and a 9 mm Spira integrated cage tapped into position and screwed into place I was unable to place a anterior plate across C7-T1 due to the large screw holes left from the previous instrumentation. Incision was then copiously irrigated explored to ensure no damage to surrounding structures or remaining bleeding. 10 round AUDELIA drain inserted. The incision was then closed with 2 Vicryl to fascia and a 4 Monocryl for final skin closure. Steri-Strips and sterile dressing placed. Patient waken taken to PACU in stable condition. Please note Anthony Shea was present of the entire procedure involved the patient positioning complex portion of the surgery and final skin closure. I attest to the content of the Intraoperative Record and any orders documented therein. Any exceptions are noted below.
[2024-12-13] MEDS: ceFAZolin 330 MG/ML 1 GM VIAL ONE (09:17)
[2024-12-13] MEDS ORDERED: HYDROmorphone INJ 2 MG/ML SYR/VIAL IV PRN (09:38)
[2024-12-13] MEDS ORDERED: ATROPINE SULFATE 0.1 MG/ML 10ML SYR IV PRN (09:38)
[2024-12-13] MEDS ORDERED: ONDANSETRON INJ 2 MG/ML 2 ML VIAL IV PRN ×2 (09:38→10:40)
[2024-12-13] MEDS ORDERED: DEXAMETHASONE SOD INJ 4 MG/ML VIAL IV PRN (09:38)
[2024-12-13] MEDS ORDERED: LABETALOL HCL IV 5 MG/ML 20ML IV PRN (09:38)
--- NOTE | 2024-12-13 10:00 | Fluoroscopy Report ---
FL cervical 2-3V CLINICAL HISTORY: C7-T1 ACDF, C6-C7 HARDWARE REMOVAL COMPARISON STUDY: None pertinent FLUOROSCOPY TIME: 20.3 seconds FLUOROSCOPY IMAGES: 3 EXPOSURE DOSE: 6.2 mGy FINDINGS: Fluoroscopic guidance provided for cervical spine surgery IMPRESSION: Refer to procedural report for evaluation based upon real-time observation. ACT 112: Negative or not required by law. Electronically signed by: Toya Ahuja M.D. 12/13/2024 9:59 AM
--- NOTE | 2024-12-13 10:20 | Anesthesiology Progress Note ---
Date of Service December 13, 2024 Anesthesia Post Procedure Vital Signs Vital Signs: Temp Pulse Resp BP Pulse Ox O2 Del Method O2 Flow Rate 12/13/24 10:10 77 23 113/83 96 Nasal Cannula 2 12/13/24 10:00 72 15 115/83 96 Nasal Cannula 2 12/13/24 09:50 87 16 134/79 96 Room Air 12/13/24 09:40 81 13 124/71 94 Room Air 12/13/24 09:30 82 24 115/73 95 Room Air 12/13/24 09:23 36.0 C L 81 16 129/89 96 Room Air 12/13/24 06:54 36.5 C 88 20 100/79 98 Room Air Pain Intensity Back: Pain Intensity: 7 Anterior Neck: Pain Intensity: 9 Transfer of Care Handoff Completed per policy Notes Mental Status: alert / awake / arousable and participated in evaluation Patient Amnestic to Procedure: Yes Nausea / Vomiting: adequately controlled Pain: adequately controlled Airway Patency, RR, SpO2: stable & adequate BP & HR: stable & adequate Hydration State: stable & adequate Anesthetic Complications: no major complications apparent and Pt Satisfied with anesthetic care
[2024-12-13] MEDS ORDERED: DO NOT ADMINISTER FLU VACCINE PRN (10:40)
[2024-12-13] MEDS ORDERED: HYDROmorphone INJ 1 MG/ML SYRINGE IV PRN (10:40)
[2024-12-13] MEDS ORDERED: ONDANSETRON 4 MG OD TAB PO PRN (10:40)
[2024-12-13] MEDS ORDERED: ACETAMINOPHEN 500 MG TAB PO PRN (10:40)
[2024-12-13] MEDS ORDERED: LORazepam 0.5 MG TAB PO PRN (10:40)
[2024-12-13] MEDS ORDERED: dexAMETHasone 8 MG in SYRINGE 0 ML IV PRN (10:40)
[2024-12-13] MEDS ORDERED: PROMETHAZINE 12.5 MG/50.5 ML BAG IV PRN (10:40)
[2024-12-13] MEDS ORDERED: diphenhydrAMINE Capsule 25 MG CAP PO PRN (10:40)
[2024-12-13] MEDS ORDERED: HYDROmorphone INJ 0.5 MG/0.5 ML SYR IV PRN (10:40)
[2024-12-13] MEDS ORDERED: SOD PHOSPHATE/SOD BIPHOSPHATE ENEMA 132 ML BTL PR PRN (10:40)
[2024-12-13] MEDS ORDERED: METOCLOPRAMIDE HCL INJ 5 MG/ML 2 ML VIAL IV PRN (10:40)
[2024-12-13] MEDS ORDERED: DO NOT ADMINISTER PNEUMOCOCCAL VACCINE PRN (10:40)
[2024-12-13] MEDS ORDERED: RACEPINEPHRINE 2.25% NEBU SOLN 0.5 ML VIAL INH PRN (10:40)
[2024-12-13] MEDS ORDERED: NALOXONE HCL 0.4 MG/1 ML VIAL/CARP IV PRN (10:40)
[2024-12-13] MEDS ORDERED: MAGNESIUM HYDROXIDE SUSP 30 ML UDC PO PRN (10:40)
[2024-12-13] MEDS ORDERED: FAMOTIDINE 20 MG TAB PO PRN (10:40)
--- NOTE | 2024-12-13 11:33 | Anesthesiology Progress Note ---
Date of Service December 13, 2024 Anesthesia Post Procedure Vital Signs Vital Signs: Temp Pulse Resp BP Pulse Ox Pulse Ox O2 Del Method 12/13/24 11:13 36.4 C L 75 16 132/89 96 Room Air 12/13/24 10:55 66 16 96 Room Air 12/13/24 10:40 36.6 C 68 17 131/64 96 Room Air 12/13/24 10:40 96 12/13/24 10:30 79 18 121/94 98 Room Air 12/13/24 10:20 36.4 C L 77 20 115/91 98 Room Air 12/13/24 10:10 77 23 113/83 96 Nasal Cannula 12/13/24 10:00 72 15 115/83 96 Nasal Cannula 12/13/24 09:50 87 16 134/79 96 Room Air 12/13/24 09:40 81 13 124/71 94 Room Air 12/13/24 09:30 82 24 115/73 95 Room Air 12/13/24 09:23 36.0 C L 81 16 129/89 96 Room Air 12/13/24 06:54 36.5 C 88 20 100/79 98 Room Air O2 Del Method O2 Flow Rate 12/13/24 11:13 12/13/24 10:55 12/13/24 10:40 12/13/24 10:40 Room Air 12/13/24 10:30 2 12/13/24 10:20 2 12/13/24 10:10 2 12/13/24 10:00 2 12/13/24 09:50 12/13/24 09:40 12/13/24 09:30 12/13/24 09:23 12/13/24 06:54 Pain Intensity Back: Pain Intensity: 7 Anterior Neck: Pain Intensity: 9 Transfer of Care Handoff Completed per policy Notes Mental Status: alert / awake / arousable and participated in evaluation Patient Amnestic to Procedure: Yes Nausea / Vomiting: adequately controlled Pain: adequately controlled Airway Patency, RR, SpO2: stable & adequate BP & HR: stable & adequate Hydration State: stable & adequate Anesthetic Complications: no major complications apparent and Pt Satisfied with anesthetic care
[2024-12-13] MEDS: ACETAMINOPHEN 1,000 MG/100 ML VIAL IV PRN (19:47)
[2024-12-13] MEDS: ATORVASTATIN 20 MG TAB PO SCH (20:18)
[2024-12-13] MEDS: DOCUSATE SODIUM/SENNA 50/8.6MG TAB PO SCH (20:18)
[2024-12-14] MEDS: ALUMINUM/MAGNESIUM SUSP 30 ML UDC PO PRN (03:54)
[2024-12-14] MEDS: POLYETHYLENE (MIRALAX) 17 GM PACK PO SCH (05:40)
--- NOTE | 2024-12-14 08:21 | Discharge Summary ---
Date of Service December 14, 2024 Admission HPI Per Admitting Provider This is a 74-year-old male who presents with persistent neck and arm pain and failing course of nonoperative care is here for surgical invention. Principal Diagnosis Cervical disc herniation with radiculopathy Discharge Data Allergies Allergy/AdvReac Type Severity Reaction Status Date / Time azithromycin [From Zithromax] AdvReac Mild Diarrea Verified 12/13/24 06:51 clavulanic acid AdvReac Mild GI issues Verified 12/13/24 06:51 [From Augmentin] Procedures Performed Operation Date: 12/13/24 07:45 Actual Procedures p C7-T1 Anterior Cervical Discectomy and Fusion with C6-C7 Hardware Removal(Not Applicable) - Rico Batres DO Ordered Studies 12/13/24 07:45 FL cervical 2-3V Routine Hospital Course (1) Cervical disc disease: patient went anterior cervical discectomy and fusion trial as well as taken to orthopedic for postoperative. Postoperative he is swallowing well. No hoarseness. AUDELIA drain decreasing. I extra strength testing upper extremity. Separately discharged home. Discharge orders instructions were on the chart for further review. Total Time Total Time Spent Total Time Spent (In Minutes): 20 minutes Discharge Plan Discharge Items Patient Disposition: Home - Self-Care Reason For Visit: Herniation of Cervical Intervertebral Disc with Ra Discharge Diagnosis: Cervical disc condition with radiculopathy Activity: As commented below Non-emergency contact: Primary Care Provider Call non-emergency contact if: you have any medication questions Follow-up/Referrals: Sharon Martínez MD [Primary Care Provider] - Diet: Regular Addtl Attending Provider Instructions: ACTIVITY RECOMMENDATIONS: SELF CARE INSTRUCTIONS AFTER CERVICAL FUSIONS 1. No smoking. Smoking drastically decreases the chance of a solid fusion. 2. No bending, lifting more than 5 pounds, or twisting (roll like a log when turning in bed). 3. You may shower 3 days after surgery. Thoroughly dry wound. Do not soak in the tub. 4. Cervical collar: Must be worn at all times including sleeping. You may remove the brace only to bath, eat and if you are sitting in a recliner. 5. Please walk as much as you can for exercise. Gradually increase the distance that you walk as your endurance increases. 6. You may return to previous diet. SPECIAL CARE INSTRUCTIONS: VERY IMPORTANT TO READ AND REVIEW A. Do not take any anti-inflammatory medications (i.e. Indocin, Advil, Aspirin, Naprosyn, Aleve, Motrin, etc.) as these may inhibit the chance of a solid fusion. Tylenol is okay to take. B. Your surgical incision has been closed with a cosmetic suture under the skin that will dissolve in about 6 weeks. In 14 days, you can use a pair of clean scissors and cut the suture that is left outside of the skin at the ends of your incision. C. Complications are uncommon, but please contact us if you have any signs or symptoms of: 1. wound infection (fever higher than 102.5 degrees F, redness, separation of wound, drainage, or increasing pain from the incision) 2. blood clots in legs (pain, swelling, redness and warmth in legs) 3. urinary tract infection (fever higher than 102.5 degrees, burning upon urination or increased frequency of urination) 4. nerve problems (inability to walk on your toes or heels, numbness, loss of bowel or bladder control) 5. any other symptoms that concern you. D. Please call the office at if you have any concerns or questions about your operation or recovery. MANAGING PAIN AFTER SPINAL SURGERY 1. Narcotic medication is intended for short-term use and will be provided for surgical pain. Surgical pain usually lasts for a period of 4-6 weeks. Narcotic medication includes Percocet, Vicodin, Darvocet, Tylenol #3 or Lortab. 2. Longer-term pain is more appropriately treated with non-narcotic medication such as Tylenol ES. 3. Muscle spasm is not appropriately treated with narcotics. Muscle relaxers such as Soma, Flexeril or Skelaxin can be used along with Tylenol ES. 4. Remember that we all live with some "aches and pains". This is not unusual or uncommon after an injury or as we get older. 5. We will provide appropriate medication within the normal guidelines of their prescribed use. We will also be very cautious and aware of potential abuse and extended duration of patients' medication needs. 6. Please allow 2-3 days to process refills. Prescriptions will not be mailed but must be picked up at the office. FOLLOW UP VISIT: Keep your scheduled follow-up appointment. Any questions, please call the office at . Pending Studies at Discharge: No Stand-Alone Forms: [facility], Smoking Cessation Medications and DC Order Prescriptions: New tramadol 50 mg tablet 50 mg PO Q6H PRN (Reason: pain, moderate) Qty: 30 0RF oxycodone 5 mg tablet 5 mg PO Q6H PRN (Reason: pain) Qty: 30 0RF Continued atorvastatin 20 mg tablet 20 mg PO QPM Qty: 90 3RF amlodipine 5 mg tablet 5 mg PO QAM Qty: 90 3RF tramadol 50 mg tablet 50 mg PO Q8H PRN (Reason: pain) Qty: 18 0RF Rx Instructions: ongoing therapy oxycodone 5 mg tablet 5 mg PO Q6 PRN (Reason: pain) Qty: 12 0RF Held Eliquis 5 mg tablet 5 mg PO BID Qty: 180 3RF Discharge Orders: Discharge Order (Routine); Ordered 12/14/24 Ordered By: Rico Batres Admission Data Admit Date/Time: 12/13/24 09:13 Attending Provider: Rico Batres Admit Provider: Rico Batres Primary Care Provider: Sharon Martínez
[2024-12-14] MEDS: dexAMETHasone 6 MG in SYRINGE 0 ML IV SCH (09:08)
[2024-12-14 09:18] VITALS: BP 130/89; RESP 16; TEMP 98.1
[2024-12-14 10:50] VITALS: PULSE 101; O2SAT 98
== END 2024-12-14 12:42 | disposition home or self-care (01) | DRG 473 ==
LOC: ASU 06:34 → 3E 09:13

== ENCOUNTER 2025-01-10 07:58 | Inpatient (IN) ==
--- NOTE | 2025-01-10 08:30 | Emergency Department Note ---
Impression & Plan Post-op pain, Intractable pain ED Provider Note HISTORY OF PRESENT ILLNESS: Patient is a 74-year-old male presenting with lower neck and upper back pain. Patient reports that he had spinal surgery a month ago. He reports for the last 2 weeks he has been having increasing and worsening pain in his upper back. He states that he has had pain down his left arm and he has been having numbness and tingling in his ring and pinky fingers on the left hand. He reports this been ongoing since surgery. He states that he has been taking tramadol and Tylenol at home with little relief in his symptoms. He has also been taking gabapentin. He states that the pain was so bad this morning he was unable to get up and get out of bed, prompting him to come to the ER. He does report he had some pain in the anterior chest this morning. Denies any shortness of breath. He is on Eliquis for history of A-fib. He denies any recent fevers. Denies any cough. Denies any abdominal pain, nausea or vomiting. Denies any recent falls or trauma. ROS: as above PHYSICAL EXAM: Constitutional: Patient appears in no acute distress. HENT: Head: Normocephalic and atraumatic. Eyes: EOMI, PERRL Mouth/Throat: Mucous membranes moist. Neck: Trachea midline. Neck supple. Cardiovascular: RRR, No murmurs, rubs or gallops. Intact distal pulses. Pulmonary/Chest: No respiratory distress. Breath sounds clear and equal bilaterally. No wheezes or rales. Diffuse chest wall tenderness to palpation. Abdominal: Abdomen soft, no tenderness, rebound or guarding. Back: No paraspinal tenderness, no CVA tenderness. Lower cervical and upper thoracic midline TTP. Musculoskeletal: No edema, tenderness or deformity noted. Skin: Warm and dry. No rash, erythema, pallor or cyanosis Psychiatric: Appropriate mood and affect for situation. Neurological: Alert and keenly responsive. CN II-XII grossly intact, moving all extremities equally and fully. MDM: - Vitals signs stable - History obtained via patient. History as above. - Chronic conditions affecting care: HTN; HLD; Afib - Differential diagnoses include, but are not limited to: Epidural abscess; epidural hematoma; ACS; mediastinitis; electrolyte abnormality - Order placed for continuous cardiac monitoring. At this time, monitor showed rate of 88 bpm with normal sinus rhythm, per my interpretation. - External medical records reviewed. Operative note dated 12/13/2024 was reviewed. Patient had a herniation of cervical intervertebral disc with radiculopathy. He had removal of his anterior cervical plate and screws at C6/C7, exploration of fusion of C6/C7, anterior cervical discectomy and bilateral foraminectomy's at C7-T1, anterior cervical arthrodesis at C7-T1 and placement of a cage at C7-T1. - EKG image interpreted by myself showed normal sinus rhythm. Rate 67 bpm. QT 398. No acute ischemic changes. - Laboratory workup interpreted by myself showed normal WBC; normal PT/INR; stable electrolytes other than slight hypercalcemia (Ca 10.7); normal AST/ALT; normal lipase; normal troponin - CXR image reviewed and interpreted by myself negative for pneumonia, per my interpretation - CT cervical spine with IV contrast was negative for acute pathology - CT thoracic spine with IV contrast negative for acute pathology but postoperative changes noted. - Discussed case with orthopedic spinal surgeon, Dr. Batres, at 11:08. He recommended obtaining an MRI cervical spine without contrast to rule out a postoperative hematoma given the patient's significant pain and neurological symptoms. He will be by to evaluate the patient. - On reassessment, the patient is still complaining of significant pain. Given 3 mg IV morphine. - MRI cervical spine wo contrast showed interval operative changes with removal of hardware at C6 and C7. Bone marrow and soft tissue edema at the operative levels with a 1 cm prevertebral fluid collection. - Given patient's persistent pain symptoms, will admit to hospital service for pain management with orthopedic spinal surgery on his consult. - Discussion was had with disability case manager about patient's case and need for admission - Hospitalist consulted for admission - Patient admitted to [facility] service for further evaluation and management. ASSESSMENT AND PLAN: Diagnosis: Postoperative pain; intractable pain Plan: Admit Past Med/Surg History Problem List (Updated 01/10/25 @ 13:19 by Libra Carrasco MD) Intractable pain (Acute) Post-op pain (Acute) Status post cervical spinal fusion Nondisplaced fracture of fifth left metatarsal bone BPH (benign prostatic hyperplasia) Hematuria Epididymitis, left Failure of outpatient treatment (Acute) Olecranon bursitis of left elbow Elevated LFTs Pelvic hematoma L5 vertebral fracture Brown-colored urine Dysuria Nasal sinus congestion Early satiety Paroxysmal atrial fibrillation History of colon polyps Encounter for pre-operative examination Medical History Atrial fibrillation (2017) Taking Eliquis Follows with [facility] Dyslipidemia Per records History of COVID-19 02/2021- mild cold symptoms, resolved History of kidney stones History of pelvic fracture 03/2020- 4 liu accident "Resolved" Hypertension Per records Osteoarthritis Surgical History Fusion of spine Cervical > limited side to side ROM ?C4-6 per patient History of appendectomy History of colonoscopy History of cystoscopy Removal of kidney stones History of endoscopic sinus surgery History of herniorrhaphy Incisional Torsion of intestine, bowel or colon Repaired Family History Denies family history of Ovarian cancer Prostate cancer Myocardial infarction Breast cancer Colorectal cancer Social History Smoking Status: Never smoker Second Hand Exposure: No; Do You Dip or Chew Tobacco: No; Hx Alcohol Use: No Hx Substance Use: No Preferred Language: Tajik Communication Ability: Effective Visual Impairment: Limited Hearing Ability: Normal Postal Supervisor Required: No Beliefs That Will Affect Care: None marital status: Current Living Situation: Spouse current occupational status: retired How many Children do You have: 1 Feels Safe at Home: Yes Childhood Exposure to Second-Hand Smoke: No Diet: regular caffeine: Yes during the past year weight has: remained stable Dental Care, Regularly: Yes Physical Activity Frequency: Daily Seatbelt Use: always Sunscreen Use: No Do you think of yourself as: straight/heterosexual Gender Identity: Male Assistive Devices: None Allergies Allergies Allergy/AdvReac Type Severity Reaction Status Date / Time azithromycin [From Zithromax] AdvReac Mild Diarrea Verified 12/13/24 06:51 clavulanic acid AdvReac Mild GI issues Verified 12/13/24 06:51 [From Augmentin] Home Meds Home Medications Medication Instructions Recorded Confirmed gabapentin 100 mg capsule 300 mg PO TID 01/10/25 01/10/25 Previous Rx's Medication Instructions Recorded apixaban 5 mg tablet (Eliquis) 5 mg PO BID #180 tabs 01/14/24 atorvastatin 20 mg tablet 20 mg PO QPM #90 tabs 10/22/24 amlodipine 5 mg tablet 5 mg PO QAM #90 tabs 10/23/24 Results & Data (ED) Vital Signs Vital Signs - 24 hr 01/10/25 08:13 01/10/25 08:18 01/10/25 09:24 Temperature 36.6 C Temperature Source Oral Pulse Rate 80 68 Pulse Rate [Apical] Respiratory Rate 20 Respiratory Effort / Characteristics Non-Labored Spontaneous Respiratory Depth Normal Respiratory Pattern Blood Pressure 122/84 Blood Pressure [Right Arm] Blood Pressure Mean 96 Blood Pressure Mean [Right Arm] Pulse Oximetry 99 95 Oxygen Delivery Method Room Air Room Air Sepsis Recent Fever Within 48 Hours No Sepsis New/Unexplained Change in Mental Status N/A Sepsis Action Taken by Nursing No Action Required 01/10/25 10:00 01/10/25 11:49 01/10/25 12:28 Temperature Temperature Source Pulse Rate Pulse Rate [Apical] 108 H 101 H 88 Respiratory Rate 18 18 18 Respiratory Effort / Characteristics Non-Labored Spontaneous Non-Labored Spontaneous Respiratory Depth Normal Normal Respiratory Pattern Regular Regular Blood Pressure Blood Pressure [Right Arm] 129/92 132/98 143/104 H Blood Pressure Mean Blood Pressure Mean [Right Arm] 104 109 117 Pulse Oximetry 95 98 97 Oxygen Delivery Method Room Air Room Air Sepsis Recent Fever Within 48 Hours Sepsis New/Unexplained Change in Mental Status Sepsis Action Taken by Nursing Laboratory Data 01/10/25 08:24 01/10/25 08:24 Lab Results 01/10/25 Range/Units 08:24 WBC 8.76 (4.8-10.8) K/ul RBC 5.27 (4.70-6.10) M/uL Hgb 16.2 (14.0-18.0) g/dl Hct 46.3 (42.0-52.0) % MCV 87.9 (80.0-100.0) fL MCH 30.7 (25.0-34.0) pg MCHC 35.0 (32.0-36.0) g/dL RDW Std Deviation 41.2 (36.4-46.3) fL RDW Coeff of Ceferino 12.9 (11.5-14.5) % Plt Count 249 (130-400) K/uL MPV 9.8 (9.4-12.4) fL Immature Gran % (Auto) 1.0 % Neut % (Auto) 53.7 % Lymph % (Auto) 33.4 % [place]leigh % (Auto) 9.6 % Eos % (Auto) 1.6 % Baso % (Auto) 0.7 % Neut # (Auto) 4.70 (1.40-6.50) K/uL Lymph # (Auto) 2.93 (1.20-3.40) K/uL Burleigh # (Auto) 0.84 H (0.11-0.59) K/uL Eos # (Auto) 0.14 (0.00-0.50) K/uL Baso # (Auto) 0.06 (0.00-0.20) K/uL Immature Gran # (Auto) 0.09 (0.01-0.20) K/uL PT 10.3 (9.0-12.0) Seconds INR 1.0 (0.9-1.1) Sodium 140 (136-145) mmol/L Potassium 4.0 (3.5-5.1) mmol/L Chloride 105 (98-107) mmol/L Carbon Dioxide 26 (21-32) mmol/L Anion Gap 9 (3-11) BUN 23 (6-23) mg/dl Creatinine 0.90 (0.6-1.4) mg/dl Est Cr Clr Drug Dosing 79.0 ml/min eGFR 90.74 BUN/Creatinine Ratio 25.6 H (10-20) Glucose 90 (70-99(Fasting)) mg/dl Calcium 10.7 H (8.6-10.3) mg/dl Total Bilirubin 0.7 (0.2-1.0) mg/dl AST 14 (13-39) U/L ALT 30 (7-52) U/L Alkaline Phosphatase 90 (34-104) U/L Troponin I High Sens 6.0 (0-20) pg/ml Total Protein 7.4 (6.0-8.3) gm/dl Albumin 4.5 (3.4-5.0) gm/dl Globulin 2.9 (2.5-4.0) gm/dl Albumin/Globulin Ratio 1.6 (0.9-2) Lipase 30 (11-82) U/L Administered Medications Discontinued Medications Fentanyl Citrate (Fentanyl Citrate Pf 100 Mcg/2 Ml Vial) 50 mcg IV NOW STA Stop: 01/10/25 08:26 Last Admin: 01/10/25 08:44 Dose: 50 mcg Documented By: JUANITA Ioversol (Optiray 320 100ml) 94 ml IV ONCE ONE Stop: 01/10/25 09:34 Last Admin: 01/10/25 09:33 Dose: 1 ml Documented By: HAZEL Lidocaine (Lidocaine 5% 1 Patch) 1 patch TD NOW STA Stop: 01/10/25 08:26 Last Admin: 01/10/25 08:44 Dose: 1 patch Documented By: GCC Morphine Sulfate (Morphine Sulfate 4 Mg/Ml 1 Ml Carp\\Vial) 3 mg IV NOW STA Stop: 01/10/25 12:37 Last Admin: 01/10/25 12:54 Dose: 3 mg Documented By: GCC Imaging Data Radiologist's Impression: Chest X-Ray 01/10/25 08:18 XR chest 1V portable CLINICAL HISTORY: Chest pain, nonspecific COMPARISON STUDY: 12/06/2024 FINDINGS: Heart size and pulmonary vasculature are normal. No consolidation or pleural effusion. No pneumothorax. IMPRESSION: No acute findings. ACT 112: Negative or not required by law. Electronically signed by: Parag Naqvi M.D. 01/10/2025 9:[address] 01/10/25 08:36 CT cervical spine w con CLINICAL HISTORY: pain; recent surg COMPARISON STUDY: 05/07/2018 FINDINGS: There is osseous fusion at C6-7. There is interval removal of the prior plate and screws at C6-7. There is interval anterior instrumented fusion at C7-T1. There is minimal anterolisthesis of C4 on 5. Otherwise normal alignment. No cervical spine fracture seen. There is mild degenerative disc disease at C4-5 and C5-6. No significant osseous central canal or neural foraminal narrowing seen. Visualized soft tissues show no significant hematoma or abscess. No evidence of discitis/osteomyelitis seen. IMPRESSION: No acute findings. ACT 112: Negative or not required by law. Electronically signed by: Parag Naqvi M.D. 01/10/2025 10:[address] 01/10/25 08:36 CT thoracic spine w con HISTORY: 74 years-old Male pain; recent surg acute mid back pain with recent surgery COMPARISON: MRI thoracic spine 12/04/2024 TECHNIQUE: Multiple axial CT images of the thoracic spine were obtained without IV contrast. A dose lowering technique was used consistent with the principals of ALARA. FINDINGS: Anterior bridging osteophytosis throughout the mid to lower thoracic spine. Probable hemangioma at T7. Status post discectomy at the C7-T1 level. Mild multilevel intervertebral disc space narrowing and facet arthrosis. No acute fracture, subluxation or endplate erosion of the thoracic spine. Status post removal of the C6-C7 anterior fusion hardware. At T7-T8 there is redemonstration of an 8 x 4 mm left paracentral disc protrusion on image 319 series 9. Unchanged 7 mm right paracentral/right lateral recess disc protrusion at T8-T9. No high- grade central canal or neural foraminal narrowing. The lung hidalgo appear clear. No pneumothorax. No paravertebral edema. IMPRESSION: 1. No acute fracture or subluxation of the thoracic spine. 2. Postoperative changes of the cervical spine. CT cervical spine dictated separately. ACT 112: Negative or not required by law. The above report was generated using voice recognition software. It may contain grammatical, syntax or spelling errors. Electronically signed by: Haris Dawson M.D. 01/10/2025 10:18 AM Cervical Spine MRI 01/10/25 11:11 MR cervical spine wo con HISTORY: 74 years-old Male neck pain; recent surg; L hand weakness chronic neck pain with left hand weakness COMPARISON: CT cervical spine of same day, MR cervical spine 12/04/2024, fluoroscopic images of the cervical spine 12/13/2024 TECHNIQUE: Multiplanar multisequence MRI of the cervical spine was obtained without IV contrast FINDINGS: Status post removal of the anterior plate and screw fusion at C6-C7 with interval C7-T1 discectomy/anterior fusion. Bone marrow with mild prevertebral edema at these levels are likely expected postoperative changes. 10 x 5 x 7 mm prevertebral postoperative fluid collection adjacent to C6 (image 84 series 6 image 10 series 5). No epidural fluid collections There is normal signal within the brainstem, cervical and imaged upper thoracic spinal cord. C2-C3: Unremarkable. C3-C4: A posterior disc osteophyte complex mildly effaces the ventral subarachnoid space. There is a right lateral disc bulge. In conjunction with facet arthropathy there is unchanged moderate right neural foraminal narrowing. Only mild neural foraminal narrowing seen on the left. C4-C5: A posterior disc osteophyte complex abuts the ventral cord. Facet arthropathy causes mild right neural foraminal narrowing. The left neural foramen is patent. C5-C6: A posterior disc osteophyte complex abuts the ventral cord. Mild facet arthropathy is of no consequence. The neural foramina are patent. C6-C7: Posterior osteophytosis eccentric to the left effaces the ventral subarachnoid space. Mild facet arthropathy is no consequence. The neural foramina are patent. C7-T1: Interval discectomy. Minimal left-sided neural foraminal narrowing is unchanged. Patent central canal and right neural foramen. IMPRESSION: 1. Interval postoperative changes of the cervical spine with removal of the hardware at C6-C7 and interval discectomy/fusion at C7-T1. 2. Bone marrow and soft tissue edema at the operative levels are likely expected postoperative findings with 1 cm prevertebral fluid collection at C6. 3. The cervical cord is normal in morphology and signal intensity. 4. No high-grade central canal or neural foraminal narrowing. ACT 112: Negative or not required by law. The above report was generated using voice recognition software. It may contain grammatical, syntax or spelling errors. Electronically signed by: Haris Dawson M.D. 01/10/2025 1:00 PM Discharge Plan Visit Data Chief Complaint: Neck Injury/Pain Stated Complaint: SURGERY 1 M AGO, NECK PAIN WORSENING ED Provider: Libra Carrasco Discharge Problem: Post-op pain, Intractable pain Condition: Fair Forms Stand Alone Forms: [facility] Service Seeking Prescriptions Prescriptions: No Action Eliquis 5 mg tablet 5 mg PO BID Qty: 180 3RF atorvastatin 20 mg tablet 20 mg PO QPM Qty: 90 3RF amlodipine 5 mg tablet 5 mg PO QAM Qty: 90 3RF gabapentin 100 mg capsule 300 mg PO TID Referrals Referrals: Sharon Martínez MD [Primary Care Provider] -
[2025-01-10] MEDS: LIDOCAINE 5% 1 PATCH TD STA (08:44)
[2025-01-10 08:47] LABS: Hematocrit (blood only) 46.3 % (42.0-52.0); Hemoglobin 16.2 g/dl (14.0-18.0); Immature Granulocytes # (auto) 0.09 K/uL (0.01-0.20); Immature Granulocytes % (auto) 1.0 %; Mean Corpuscular Hemoglobin 30.7 pg (25.0-34.0); Mean Corpuscular Volume 87.9 fL (80.0-100.0); Platelet Count 249 K/uL (130-400); RDW Standard Deviation 41.2 fL (36.4-46.3); Red Blood Count 5.27 M/uL (4.70-6.10); White Blood Count 8.76 K/ul (4.8-10.8)
[2025-01-10 09:05] LABS: Alanine Aminotransferase 30.0 U/L (7-52); Albumin Globulin Ratio 1.6 (0.9-2); Albumin Level 4.5 gm/dl (3.4-5.0); Alkaline Phosphatase 90.0 U/L (34-104); Anion Gap 9.0 (3-11); Bilirubin,Total 0.7 mg/dl (0.2-1.0); Blood Urea Nitrogen 23.0 mg/dl (6-23); Calcium 10.7 mg/dl (8.6-10.3); Carbon Dioxide 26.0 mmol/L (21-32); Chloride 105.0 mmol/L (98-107); Creatinine Clr Calc Pharmacy 79.0 ml/min; Globulin 2.9 gm/dl (2.5-4.0); Glucose 90.0 mg/dl (70-99(Fasting)); Lipase 30.0 U/L (11-82); Potassium 4.0 mmol/L (3.5-5.1); Sodium 140.0 mmol/L (136-145); Total Protein 7.4 gm/dl (6.0-8.3)
[2025-01-10 09:15] LABS: INR 1.0 (0.9-1.1); Prothrombin Time 10.3 Seconds (9.0-12.0)
--- NOTE | 2025-01-10 09:26 | XRay Report ---
XR chest 1V portable CLINICAL HISTORY: Chest pain, nonspecific COMPARISON STUDY: 12/06/2024 FINDINGS: Heart size and pulmonary vasculature are normal. No consolidation or pleural effusion. No p neumothorax. IMPRESSION: No acute findings. ACT 112: Negative or not required by law. Electronically signed by: Parag Naqvi M.D. 01/10/2025 9:25 AM
[2025-01-10] MEDS: OPTIRAY 320 100ml IV ONE (09:33)
--- NOTE | 2025-01-10 10:02 | CT Scan Report ---
CT cervical spine w con CLINICAL HISTORY: pain; recent surg COMPARISON STUDY: 05/07/2018 FINDINGS: There is osseous fusion at C6-7. There is interval removal of the prior plate and screws at C6-7. There is interval anterior instrumented fusion at C7-T1. There is minimal anterolisthesis of C 4 on 5. Otherwise normal alignment. No cervical spine fracture seen. There is mild degenerative disc disease at C4-5 and C5-6. No significant osseous central canal or neural foraminal narrowing seen. Vi sualized soft tissues show no significant hematoma or abscess. No evidence of discitis/osteomyelitis seen. IMPRESSION: No acute findings. ACT 112: Negative or not required by law. Electronically signed by: Parag Naqvi M.D. 01/10/2025 10:00 AM
--- NOTE | 2025-01-10 10:20 | CT Scan Report ---
CT thoracic spine w con HISTORY: 74 years-old Male pain; recent surg acute mid back pain with recent surgery COMPARISON: MRI thoracic spine 12/04/2024 TECHNIQUE: Multiple axial CT images of the thoracic spine were obtained without IV contrast. A dose l owering technique was used consistent with the principals of LORELEI. FINDINGS: Anterior bridging osteophytosis throughout the mid to lower thoracic spine. Probable hemangioma at T7 . Status post discectomy at the C7-T1 level. Mild multilevel intervertebral disc space narrowing and facet arthrosis. No acute fracture, subluxation or endplate erosion of the thoracic spine. Status pos t removal of the C6-C7 anterior fusion hardware. At T7-T8 there is redemonstration of an 8 x 4 mm lef t paracentral disc protrusion on image 319 series 9. Unchanged 7 mm right paracentral/right lateral r ecess disc protrusion at T8-T9. No high-grade central canal or neural foraminal narrowing. The lung f ields appear clear. No pneumothorax. No paravertebral edema. IMPRESSION: 1. No acute fracture or subluxation of the thoracic spine. 2. Postoperative changes of the cervical spine. CT cervical spine dictated separately. ACT 112: Negative or not required by law. The above report was generated using voice recognition software. It may contain grammatical, syntax o r spelling errors. Electronically signed by: Haris Dawson M.D. 01/10/2025 10:18 AM
[2025-01-10] MEDS: MoRPHine SULFATE 4 MG/ML 1 ML CARP\\VIAL IV STA (12:54)
--- NOTE | 2025-01-10 12:59 | Orthopedic Consultation ---
Date of Consultation January 10, 2025 Assessment & Plan (1) Status post cervical spinal fusion: MRI and CAT scan cervical spine available for review. Do not appreciate any postop hematoma or any gross neural compression. Instrumentation appears to be in place in appropriate alignment. There is no evidence of migration or settling. At this time he is going to be admitted for pain control. Medicine would rule out any other etiology for his symptoms. He does deny shortness of breath and chest pain at this time. I will initiate a course of steroids and Neurontin. History of Present Illness Reason for Consultation: Cervical thoracic back pain with left arm pain History of Present Illness This is a 74-year-old male well-known to me status post anterior cervical discectomy and fusion C7-T1 over 3 weeks ago. Patient had done very nicely for the first 2 weeks postoperatively but he states over the past few days has began experiencing mid thoracic back pain with radiation into the left arm. Denies any precipitating trauma fall or event. Right upper extremities asymptomatic. He is swallowing well. No hoarseness. He has undergone a course of oral steroids without relief. Denies any fevers or chills. Allergies Allergy/AdvReac Type Severity Reaction Status Date / Time azithromycin [From Zithromax] AdvReac Mild Diarrea Verified 12/13/24 06:51 clavulanic acid AdvReac Mild GI issues Verified 12/13/24 06:51 [From Augmentin] Home Medications Medication Instructions Recorded Confirmed Type apixaban 5 mg tablet (Eliquis) 5 mg PO BID #180 tabs 01/14/24 01/10/25 Rx atorvastatin 20 mg tablet 20 mg PO QPM #90 tabs 10/22/24 01/10/25 Rx amlodipine 5 mg tablet 5 mg PO QAM #90 tabs 10/23/24 01/10/25 Rx gabapentin 100 mg capsule 300 mg PO TID 01/10/25 01/10/25 History Patient History Medical History Atrial fibrillation (2017) Taking Eliquis Follows with [facility] cardio Dyslipidemia Per records History of COVID-19 02/2021- mild cold symptoms, resolved History of kidney stones History of pelvic fracture 03/2020- 4 liu accident "Resolved" Hypertension Per records Osteoarthritis Surgical History Fusion of spine Cervical > limited side to side ROM ?C4-6 per patient History of appendectomy History of colonoscopy History of cystoscopy Removal of kidney stones History of endoscopic sinus surgery History of herniorrhaphy Incisional Torsion of intestine, bowel or colon Repaired Family History Denies family history of Ovarian cancer Prostate cancer Myocardial infarction Breast cancer Colorectal cancer Social History Smoking Status: Never smoker Second Hand Exposure: No; Do You Dip or Chew Tobacco: No; Hx Alcohol Use: No Hx Substance Use: No Preferred Language: Bots[place]an Communication Ability: Effective Visual Impairment: Limited Hearing Ability: Normal Hematologist Oncologist Required: No Beliefs That Will Affect Care: None marital status: Current Living Situation: Spouse current occupational status: retired How many Children do You have: 1 Feels Safe at Home: Yes Childhood Exposure to Second-Hand Smoke: No Diet: regular caffeine: Yes during the past year weight has: remained stable Dental Care, Regularly: Yes Physical Activity Frequency: Daily Seatbelt Use: always Sunscreen Use: No Do you think of yourself as: straight/heterosexual Gender Identity: Male Assistive Devices: None Physical Exam Physical Exam: On exam the patient is able to sit up in the bed without difficulty. The incision is healing well. No erythema no drainage nontender. He has 5 or 5 strength detailed testing the right upper extremity left upper extremity demonstrates a 4/5 mig welder biceps triceps. He has tenderness palpation of the left tricep musculature. He has reasonable shoulder range of motion. He is nontender to palpation of the cervical thoracic musculature. He does have limitations with cervical extension as this reproduces discomfort. Results & Data Vital Signs (Past 12 Hours) Vital Signs Temp Pulse Pulse Resp BP BP Pulse Ox 01/10/25 12:28 88 18 143/104 H 97 01/10/25 11:49 101 H 18 132/98 98 01/10/25 10:00 108 H 18 129/92 95 01/10/25 09:24 68 01/10/25 08:18 95 01/10/25 08:13 36.6 C 80 20 122/84 99 O2 Del Method 01/10/25 12:28 01/10/25 11:49 Room Air 01/10/25 10:00 Room Air 01/10/25 09:24 01/10/25 08:18 Room Air 01/10/25 08:13 Room Air
--- NOTE | 2025-01-10 13:02 | Magnetic Resonance Report ---
MR cervical spine wo con HISTORY: 74 years-old Male neck pain; recent surg; L hand weakness chronic neck pain with left hand weakness COMPARISON: CT cervical spine of same day, MR cervical spine 12/04/2024, fluoroscopic images of the ce rvical spine 12/13/2024 TECHNIQUE: Multiplanar multisequence MRI of the cervical spine was obtained without IV contrast FINDINGS: Status post removal of the anterior plate and screw fusion at C6-C7 with interval C7-T1 discectomy/an terior fusion. Bone marrow with mild prevertebral edema at these levels are likely expected postopera tive changes. 10 x 5 x 7 mm prevertebral postoperative fluid collection adjacent to C6 (image 84 seri es 6 image 10 series 5). No epidural fluid collections There is normal signal within the brainstem, c ervical and imaged upper thoracic spinal cord. C2-C3: Unremarkable. C3-C4: A posterior disc osteophyte complex mildly effaces the ventral subarachnoid space. There is a right lateral disc bulge. In conjunction with facet arthropathy there is unchanged moderate right con ral foraminal narrowing. Only mild neural foraminal narrowing seen on the left. C4-C5: A posterior disc osteophyte complex abuts the ventral cord. Facet arthropathy causes mild righ t neural foraminal narrowing. The left neural foramen is patent. C5-C6: A posterior disc osteophyte complex abuts the ventral cord. Mild facet arthropathy is of no co nsequence. The neural foramina are patent. C6-C7: Posterior osteophytosis eccentric to the left effaces the ventral subarachnoid space. Mild fac et arthropathy is no consequence. The neural foramina are patent. C7-T1: Interval discectomy. Minimal left-sided neural foraminal narrowing is unchanged. Patent centra l canal and right neural foramen. IMPRESSION: 1. Interval postoperative changes of the cervical spine with removal of the hardware at C6-C7 and int erval discectomy/fusion at C7-T1. 2. Bone marrow and soft tissue edema at the operative levels are likely expected postoperative findin gs with 1 cm prevertebral fluid collection at C6. 3. The cervical cord is normal in morphology and signal intensity. 4. No high-grade central canal or neural foraminal narrowing. ACT 112: Negative or not required by law. The above report was generated using voice recognition software. It may contain grammatical, syntax o r spelling errors. Electronically signed by: Haris Dawson M.D. 01/10/2025 1:00 PM
[2025-01-10] MEDS: DEXAMETHASONE SOD INJ 4 MG/ML VIAL IV STA (13:59)
--- NOTE | 2025-01-10 14:05 | History & Physical Report ---
Date of Service January 10, 2025 Assessment & Plan (1) Post-op pain: (2) Hypertension: Plan: resume home BP meds. Bp at goal. (3) Dyslipidemia: Plan: resume statin (4) Atrial fibrillation: Plan: resume home meds but will hold apixaban Plan #acute cervical neck pain with radiation to left arm will admit to Medical. Will place on pain medicine: morphine tylenol gabapentin. Reviewed imagin x 5 x 7 mm prevertebral postoperative fluid collection adjacent to C6 Ortho is not overly concened about imaging. WIll monitor clinical course. History of Present Illness Chief Complaint: neck pain Primary Care Provider: Sharon Martínez MD 74 yo male with PMH noted below presents to the hospital with neck pain. On , Mr. Bender had #1 removal of anterior cervical plate and screws C6-C7. #2 exploration of fusion C6-C7. #3 anterior cervical discectomy with bilateral foraminotomies C7-T1. #4 anterior cervical arthrodesis C7-T1. #5 placement of Spira integrated cage filled with os design bone graft C7-T1. Patient reports since then he has had neck pain and worsening left arm pain which is sharp. Patient reports this has been ongoing and constant. The intensity though varies, however due to worsening of his pain, patient opted to come to the hospital. Patient reports he tried outpatient oral cortiocsteroids without any improvement. Allergies Allergy/AdvReac Type Severity Reaction Status Date / Time azithromycin [From Zithromax] AdvReac Mild Diarrea Verified 12/13/24 06:51 clavulanic acid AdvReac Mild GI issues Verified 12/13/24 06:51 [From Augmentin] Home Medications Medication Instructions Recorded Confirmed Type apixaban 5 mg tablet (Eliquis) 5 mg PO BID #180 tabs 01/14/24 01/10/25 Rx atorvastatin 20 mg tablet 20 mg PO QPM #90 tabs 10/22/24 01/10/25 Rx amlodipine 5 mg tablet 5 mg PO QAM #90 tabs 10/23/24 01/10/25 Rx gabapentin 100 mg capsule 300 mg PO TID 01/10/25 01/10/25 History Past Med/Surg History Problem List Intractable pain (Acute) Post-op pain (Acute) Status post cervical spinal fusion Nondisplaced fracture of fifth left metatarsal bone BPH (benign prostatic hyperplasia) Hematuria Epididymitis, left Failure of outpatient treatment (Acute) Olecranon bursitis of left elbow Elevated LFTs Pelvic hematoma L5 vertebral fracture Brown-colored urine Dysuria Nasal sinus congestion Early satiety Paroxysmal atrial fibrillation History of colon polyps Encounter for pre-operative examination Medical History History of kidney stones Dyslipidemia Per records Hypertension Per records History of COVID-19 02/2021- mild cold symptoms, resolved History of pelvic fracture 03/2020- 4 liu accident "Resolved" Osteoarthritis Atrial fibrillation (2017) Taking Eliquis Follows with [facility] cardio Surgical History Fusion of spine Cervical > limited side to side ROM ?C4-6 per patient History of cystoscopy Removal of kidney stones History of colonoscopy History of appendectomy History of herniorrhaphy Incisional Torsion of intestine, bowel or colon Repaired History of endoscopic sinus surgery Family History Denies family history of Ovarian cancer Prostate cancer Myocardial infarction Breast cancer Colorectal cancer Social History Smoking Status: Never smoker Second Hand Exposure: No; Do You Dip or Chew Tobacco: No; Hx Alcohol Use: No Hx Substance Use: No Preferred Language: Spanish Communication Ability: Effective Visual Impairment: Limited Hearing Ability: Normal Charge Rn Required: No Beliefs That Will Affect Care: None marital status: Current Living Situation: Spouse current occupational status: retired How many Children do You have: 1 Feels Safe at Home: Yes Safety Concerns: Feels Safe At This Time Childhood Exposure to Second-Hand Smoke: No Diet: regular caffeine: Yes during the past year weight has: remained stable Dental Care, Regularly: Yes Physical Activity Frequency: Daily Seatbelt Use: always Sunscreen Use: No Do you think of yourself as: straight/heterosexual Gender Identity: Male Assistive Devices: Walker Review of Systems Constitutional: no fever Eyes: no blind spots Ear, Nose, Mouth, Throat: no ear pain Respiratory: no cough Cardiovascular: no chest pain Gastrointestinal: no abdominal pain Genitourinary: no dysuria Musculoskeletal: + neck pain Integumentary: no acne Neurologic: no gait abnormality Psychiatric: no behavioral changes Endocrine: no fatigue Hematologic / Lymphatic: no easy bleeding Allergy / Immunological: no GI upset with certain foods Physical Exam Constitutional: WD/WN, vitals as above Eyes: PERRL, conjunctivae normal, anicteric sclerae ENMT: external ear and nose normal, oropharynx normal Neck: trachea midline, no thyromegaly Respiratory: normal respiratory effort, lungs clear to auscultation Cardiovascular: RRR, no murmur, no edema Gastrointestinal (Abdomen): normal bowel sounds, soft, nontender, no hepatosplenomegaly Musculoskeletal: no cyanosis or clubbing, extremities motor strength 5/5 Skin: no rashes, warm and dry Neurologic: PERRL, EOMI, accommodation nl, no face palsy, no dysarthria Psychiatric: A+Ox3, euthymic affect Lymphatic: no cervical or axillary lymphadenopathy Results & Data Results & Data Vital Signs (Past 12 Hours) Vital Signs Temp Pulse Pulse Resp BP BP Pulse Ox 01/10/25 12:28 88 18 143/104 H 97 01/10/25 11:49 101 H 18 132/98 98 01/10/25 10:00 108 H 18 129/92 95 01/10/25 09:24 68 01/10/25 08:18 95 01/10/25 08:13 36.6 C 80 20 122/84 99 O2 Del Method 01/10/25 12:28 01/10/25 11:49 Room Air 01/10/25 10:00 Room Air 01/10/25 09:24 01/10/25 08:18 Room Air 01/10/25 08:13 Room Air PG Care Time/CCT Total # of Minutes Spent Total Time Spent with Patient: Total time spent is greater than 50% in coordination of care (as documented) at patient's floor/unit and/or counseling patient: Coding Level of Care Code 13625 INT INP/OBS CARE 3/75MIN Diagnoses Post-op pain G89.18 Hypertension I10 Dyslipidemia E78.5 Atrial fibrillation I48.91
[2025-01-10] MEDS ORDERED: dexAMETHasone 8 MG in SYRINGE 0 ML IV SCH (14:30)
[2025-01-10] MEDS: GABAPENTIN 300 MG CAP PO SCH ×2 (15:18→15:31)
[2025-01-10] MEDS: AMITRIPTYLINE HCL 25 MG TAB PO SCH (15:31)
[2025-01-10] MEDS: ACETAMINOPHEN 325 MG TAB PO SCH (18:38)
--- NOTE | 2025-01-10 18:47 | Electrocardiogram Report ---
Test Reason : Blood Pressure : */* mmHG Vent. Rate : 67 BPM Atrial Rate : 67 BPM P-R Int : 148 ms QRS Dur : 92 ms QT Int : 398 ms P-R-T Axes : 51 50 62 degrees QTcB Int : 420 ms Normal sinus rhythm Normal ECG When compared with ECG of 06-Dec-2024 08:36, No significant change was found Confirmed by Aden Almeida ([id number]) on 01/10/2025 6:46:58 PM Referred By: REFERRED SELF Confirmed By: Aden Almeida
[2025-01-10] MEDS: ATORVASTATIN 20 MG TAB PO SCH (21:25)
[2025-01-10] MEDS: dexAMETHasone 8 MG in SYRINGE 0 ML IV SCH (21:26)
[2025-01-10] MEDS: REMOVE LIDODERM PATCH SCH (21:26)
[2025-01-11 06:25] LABS: Hematocrit (blood only) 44.4 % (42.0-52.0); Hemoglobin 15.4 g/dl (14.0-18.0); Mean Corpuscular Hemoglobin 30.4 pg (25.0-34.0); Mean Corpuscular Volume 87.7 fL (80.0-100.0); Platelet Count 245 K/uL (130-400); RDW Standard Deviation 40.9 fL (36.4-46.3); Red Blood Count 5.06 M/uL (4.70-6.10); White Blood Count 11.79 K/ul (4.8-10.8)
[2025-01-11 06:51] LABS: Anion Gap 8 (3-11); Blood Urea Nitrogen 32 mg/dl (6-23); Calcium 10.5 mg/dl (8.6-10.3); Carbon Dioxide 24 mmol/L (21-32); Chloride 106 mmol/L (98-107); Creatinine Clr Calc Pharmacy 69.0 ml/min; Glucose 149 mg/dl (70-99(Fasting)); Potassium 4.3 mmol/L (3.5-5.1); Sodium 138 mmol/L (136-145)
[2025-01-11] MEDS: POLYETHYLENE (MIRALAX) 17 GM PACK PO SCH (09:09)
--- NOTE | 2025-01-11 10:26 | Orthopedic Progress Note ---
Date of Service January 11, 2025 Assessment & Plan (1) Intractable pain: Plan: At this point I like to continue to observe the patient. If he continues to have recurrence of radicular symptoms we may have to consider a posterior cervical decompression fusion. I will evaluate him tomorrow and make further recommendations. Admission and Anticipated Discharge Date Admission Date: January 10, 2025 Subjective Patient is much more comfortable today. Arm symptoms have improved. Physical Exam Physical Exam: On exam he does appear much more comfortable. His strength is still's modestly diminished on the left compared to the right. This has been his established presentation. Results & Data Vital Signs (Past 12 Hours) Vital Signs Temp Pulse Resp BP Pulse Ox O2 Del Method 01/11/25 07:12 36.4 C L 79 18 125/75 96 Room Air
--- NOTE | 2025-01-11 18:44 | Hospitalist Progress Note ---
Date of Service January 11, 2025 Assessment & Plan (1) Post-op pain: (2) Hypertension: Plan: resume home BP meds. Bp at goal. (3) Dyslipidemia: Plan: resume statin (4) Atrial fibrillation: Plan: resume home meds but will hold apixaban Plan #acute cervical neck pain with radiation to left arm will admit to Medical. Will place on pain medicine: morphine tylenol gabapentin. Reviewed imagin x 5 x 7 mm prevertebral postoperative fluid collection adjacent to C6 Patient clinically improved, continue corticosteroirds. WIll monitor clinical course. Admission and Anticipated Discharge Date Admission Date: January 10, 2025 Subjective Patient reports feeling much better. Pain has improved. Physical Exam Constitutional: WD/WN, vitals as above Eyes: PERRL, conjunctivae normal, anicteric sclerae ENMT: external ear and nose normal, oropharynx normal Neck: trachea midline, no thyromegaly Respiratory: normal respiratory effort, lungs clear to auscultation Cardiovascular: RRR, no murmur, no edema Gastrointestinal (Abdomen): normal bowel sounds, soft, nontender, no hepatosplenomegaly Musculoskeletal: no cyanosis or clubbing, extremities motor strength 5/5 Skin: no rashes, warm and dry Neurologic: PERRL, EOMI, accommodation nl, no face palsy, no dysarthria Psychiatric: A+Ox3, euthymic affect Lymphatic: no cervical or axillary lymphadenopathy Results & Data Results & Data Vital Signs (Past 12 Hours) Vital Signs Temp Pulse Resp BP Pulse Ox O2 Del Method 01/11/25 14:58 36.6 C 89 18 126/85 98 Room Air 01/11/25 07:12 36.4 C L 79 18 125/75 96 Room Air PG Care Time/CCT Total # of Minutes Spent Total Time Spent with Patient: Total time spent is greater than 50% in coordination of care (as documented) at patient's floor/unit and/or counseling patient: Coding Level of Care Code 63854 SUB INP/OBS CARE 2/35MIN Diagnoses Post-op pain G89.18 Hypertension I10 Dyslipidemia E78.5 Atrial fibrillation I48.91
[2025-01-11] MEDS: ENOXAPARIN INJ 40 MG/0.4 ML SYR SQ SCH (20:34)
[2025-01-12] MEDS: NITROGLYCERIN SL 0.4 MG/TAB TAB ONE (08:01)
[2025-01-12] MEDS: MoRPHine SULFATE 4 MG/ML 1 ML CARP\\VIAL IV PRN (08:07)
[2025-01-12] MEDS: FAMOTIDINE 20MG IV PUSH 20 MG/5 ML SYR IV STA (08:35)
[2025-01-12] MEDS: SUCRALFATE 1 GM/10 ML UDC PO SCH (08:35)
[2025-01-12] MEDS: OPTIRAY 320 125ml IV ONE (09:32)
--- NOTE | 2025-01-12 09:48 | CT Scan Report ---
EXAM: CT Angiography Chest With Intravenous Contrast INDICATION: Chest and abdominal pain. Recent surgery. TECHNIQUE: Axial computed tomographic angiography images of the chest with intravenous contrast. Sagittal and coronal reformatted images were created and reviewed. This CT exam was performed using one or more of the following dose reduction techniques: automated exposure control, adjustment of the mA and/or kV according to patient size, and/or use of iterative reconstruction technique. MIP reconstructed images were created and reviewed. CONTRAST: 126 ml of Optiray 320 was administered intravenously. COMPARISON: 05/07/2018 FINDINGS: Pulmonary arteries: No abnormality noted. No pulmonary embolism. Aorta: No acute change noted. No thoracic aortic aneurysm or dissection. Lungs and pleural spaces: There is new diffuse reticulonodular interstitia density. No infiltrate, bronchiectasis, honeycombing or pleural effusion. No pneumothorax. No mass. Heart: No abnormality noted. No cardiomegaly. No significant pericardial effusion. No evidence of RV dysfunction. Bones/joints: No acute or atypical chronic changes. Soft tissues: No abnormality noted. Lymph nodes: No abnormality noted. No enlarged lymph nodes. IMPRESSION: 1. No pulmonary embolus noted. 2. There is diffuse reticulonodular interstitial changes new compared to 2019. This could reflect inflammatory pneumonitis or interval scarring. ACT 112: N/A Electronically signed by Leydi Brasher 01-12-2025 09:48 AM
--- NOTE | 2025-01-12 09:55 | CT Scan Report ---
EXAM: CT Angiography Abdomen and Pelvis With Intravenous Contrast INDICATION: Abdominal pain. Recent postop. TECHNIQUE: Axial computed tomographic angiography images of the abdomen and pelvis with intravenous contrast. Sagittal and coronal reformatted images were created and reviewed. This CT exam was performed using one or more of the following dose reduction techniques: automated exposure control, adjustment of the mA and/or kV according to patient size, and/or use of iterative reconstruction technique. MIP reconstructed images were created and reviewed. CONTRAST: 120 ml of Optiray 320 was administered intravenously. COMPARISON: 07/18/2022 FINDINGS: VASCULATURE: Aorta: Atherosclerotic calcification of the aorta and branches. No aneurysm. Celiac trunk and mesenteric arteries: No acute change noted. No occlusion or significant stenosis. Renal arteries: No acute change noted. No occlusion or significant stenosis. Iliac arteries: No acute change noted. No occlusion or significant stenosis. Lung bases: No abnormality noted. No mass. No consolidation. ABDOMEN: Liver: Normal size and contour. Hypodense typical of steatosis. No mass or ductal dilation. Gallbladder and bile ducts: No abnormality noted. No calcified stones. No ductal dilation. Pancreas: No abnormality noted. No ductal dilation. No mass. Spleen: No abnormality noted. No splenomegaly. Adrenals: No abnormality noted. No mass. Kidneys and ureters: Right kidney stone has enlarged to 7 mm. No obstruction. The left kidney appears normal. Stomach and bowel: No abnormality noted. No obstruction. No mucosal thickening. PELVIS: Appendix: The appendix is not identified. No pericecal inflammation. Bladder: No abnormality noted. No mass. Reproductive: No significant abnormality noted. ABDOMEN and PELVIS: Intraperitoneal space: No abnormality noted. No significant fluid collection. No free air. Bones/joints: Old right inferior pubic ramus fracture. Degenerative changes noted throughout the spine. No acute osseous abnormality seen. Soft tissues: Postoperative changes right inguinal hernia repair. No recurrence. Lymph nodes: No abnormality noted. No enlarged lymph nodes. IMPRESSION: 1. No angiographic abnormality in the abdomen or pelvis. 2. Enlargement of a nonobstructing right kidney stone to 7 mm since 2022. 3. Hepatic steatosis. ACT 112: N/A Electronically signed by Leydi Brasher 01-12-2025 09:54 AM
[2025-01-12 11:00] LABS: Hematocrit (blood only) 40.8 % (42.0-52.0); Hemoglobin 14.0 g/dl (14.0-18.0); Mean Corpuscular Hemoglobin 29.6 pg (25.0-34.0); Mean Corpuscular Volume 86.3 fL (80.0-100.0); Platelet Count 230 K/uL (130-400); RDW Standard Deviation 39.5 fL (36.4-46.3); Red Blood Count 4.73 M/uL (4.70-6.10); White Blood Count 17.76 K/ul (4.8-10.8)
--- NOTE | 2025-01-12 11:04 | Orthopedic Progress Note ---
Date of Service January 12, 2025 Assessment & Plan (1) Status post cervical spinal fusion: Plan: At this time he is responding to medical management regarding his cervical radiculopathy. We did discuss a possible surgical option if his symptoms continued. At this time we can stand down on the surgery and hopefully he will continue to improve without surgery. Admission and Anticipated Discharge Date Admission Date: January 10, 2025 Subjective Patient struggled with some anterior chest pain this morning. He is currently being worked up for cardiac issues. Symptoms have resolved. He states his arm symptoms markedly improved. He is much more comfortable. Physical Exam Physical Exam: On exam is currently in bed. Appears comfortable. There is some modest tenderness to palpation of the anterior chest. No tenderness palpation of the left arm. Strength is improving. He has excellent cervical range of motion without discomfort. Results & Data Vital Signs (Past 12 Hours) Vital Signs Temp Pulse Resp BP Pulse Ox O2 Del Method 01/12/25 08:04 125/75 01/12/25 08:00 82 143/83 H 01/12/25 07:56 36.4 C L 76 20 158/84 H 99 Room Air 01/12/25 07:15 36.2 C L 76 18 138/84 95 Room Air 01/11/25 23:37 36.6 C 76 18 125/81 95 Room Air
--- NOTE | 2025-01-12 23:15 | Hospitalist Progress Note ---
Date of Service January 12, 2025 Assessment & Plan (1) Post-op pain: (2) Hypertension: Plan: resume home BP meds. Bp at goal. (3) Dyslipidemia: Plan: resume statin (4) Atrial fibrillation: Plan: resume home meds but will hold apixaban Plan #acute cervical neck pain with radiation to left arm will admit to Medical. Will place on pain medicine: morphine tylenol gabapentin. Reviewed imagin x 5 x 7 mm prevertebral postoperative fluid collection adjacent to C6 Patient clinically improved, continue corticosteroirds. WIll monitor clinical course. #chest pain Likely GI related but given the intensity of the pain as patient described this was severe. ordered a ct scan of chest and abd. which was negative. This was negative. Nitro did not help, troponin was negative. ordered carafate and pepcid. Symptoms resolved in the afternoon. Admission and Anticipated Discharge Date Admission Date: January 10, 2025 Subjective 74 yo male reports having chest pain in the AM. Patient reports a sharp buring sensation in his midsternum which was very intense. Patient reports he never had this pain before. Physical Exam Constitutional: WD/WN, vitals as above Eyes: PERRL, conjunctivae normal, anicteric sclerae ENMT: external ear and nose normal, oropharynx normal Neck: trachea midline, no thyromegaly Respiratory: normal respiratory effort, lungs clear to auscultation Cardiovascular: RRR, no murmur, no edema Gastrointestinal (Abdomen): normal bowel sounds, soft, nontender, no hepatosplenomegaly Musculoskeletal: no cyanosis or clubbing, extremities motor strength 5/5 Skin: no rashes, warm and dry Neurologic: PERRL, EOMI, accommodation nl, no face palsy, no dysarthria Psychiatric: A+Ox3, euthymic affect Lymphatic: no cervical or axillary lymphadenopathy PG Care Time/CCT Total # of Minutes Spent Total Time Spent with Patient: Total time spent is greater than 50% in coordination of care (as documented) at patient's floor/unit and/or counseling patient: Coding Level of Care Code 63464 SUB INP/OBS CARE 3/50MIN Diagnoses Post-op pain G89.18 Hypertension I10 Dyslipidemia E78.5 Atrial fibrillation I48.91
[2025-01-13 00:06] VITALS: RESP 16
[2025-01-13 06:12] LABS: Hematocrit (blood only) 38.9 % (42.0-52.0); Hemoglobin 13.7 g/dl (14.0-18.0); Mean Corpuscular Hemoglobin 31.0 pg (25.0-34.0); Mean Corpuscular Volume 88.0 fL (80.0-100.0); Platelet Count 222 K/uL (130-400); RDW Standard Deviation 40.8 fL (36.4-46.3); Red Blood Count 4.42 M/uL (4.70-6.10); White Blood Count 17.75 K/ul (4.8-10.8)
[2025-01-13 06:28] LABS: Anion Gap 5 (3-11); Blood Urea Nitrogen 35 mg/dl (6-23); Calcium 10.6 mg/dl (8.6-10.3); Carbon Dioxide 26 mmol/L (21-32); Chloride 105 mmol/L (98-107); Creatinine Clr Calc Pharmacy 64.1 ml/min; Glucose 128 mg/dl (70-99(Fasting)); Potassium 4.8 mmol/L (3.5-5.1); Sodium 136 mmol/L (136-145)
[2025-01-13 07:30] VITALS: BP 121/75; PULSE 65; TEMP 97.7; O2SAT 96
[2025-01-13] MEDS ORDERED: dexAMETHasone 8 MG in SYRINGE 0 ML IV SCH (09:00)
--- NOTE | 2025-01-13 09:20 | Orthopedic Progress Note ---
Date of Service January 13, 2025 Assessment & Plan (1) Status post cervical spinal fusion: Plan: This point from an orthopedic standpoint he is markedly improved and is safe for discharge. He is to follow-up in our office as scheduled on January 22. Admission and Anticipated Discharge Date Admission Date: January 10, 2025 Subjective Patient's neck and arm symptoms are markedly improved. He states his symptoms are 1 out of 10 at most. Denies any chest pain. Has been up and ambulating without difficulty. Physical Exam Physical Exam: Patient has no pain with cervical extension. Good strength testing. Nontender to palpation. Incision well-healed. Results & Data Vital Signs (Past 12 Hours) Vital Signs Temp Pulse Resp BP Pulse Ox O2 Del Method 01/13/25 07:30 36.5 C 65 16 121/75 96 Room Air 01/13/25 00:05 36.6 C 69 16 130/72 97 Room Air
--- NOTE | 2025-01-13 12:22 | Discharge Summary ---
Discharge Summary Date of Service January 13, 2025 Principal Dx & Hospital Course #1 = Principal Diagnosis (1) Post-op pain: (2) Hypertension: resume home BP meds. Bp at goal. (3) Dyslipidemia: resume statin (4) Atrial fibrillation: resume home meds but will hold apixaban Plan #acute cervical neck pain with radiation to left arm will admit to Medical. Will place on pain medicine: morphine tylenol gabapentin. Reviewed imagin x 5 x 7 mm prevertebral postoperative fluid collection adjacent to C6 Patient clinically improved, continue corticosteroirds. WIll monitor clinical course. #chest pain Likely GI related but given the intensity of the pain as patient described this was severe. ordered a ct scan of chest and abd. which was negative. This was negative. Nitro did not help, troponin was negative. ordered carafate and pepcid. Symptoms resolved in the afternoon. Admission HPI Per Admitting Provider 74 yo male with PMH noted below presents to the hospital with neck pain. On , Mr. Bender had #1 removal of anterior cervical plate and screws C6-C7. #2 exploration of fusion C6-C7. #3 anterior cervical discectomy with bilateral foraminotomies C7-T1. #4 anterior cervical arthrodesis C7-T1. #5 placement of Spira integrated cage filled with os design bone graft C7-T1. Patient reports since then he has had neck pain and worsening left arm pain which is sharp. Patient reports this has been ongoing and constant. The intensity though varies, however due to worsening of his pain, patient opted to come to the hospital. Patient reports he tried outpatient oral cortiocsteroids without any improvement. Discharge Plan Discharge Items Patient Disposition: Home - Self-Care Reason For Visit: CERVICAL SPINE PAIN Discharge Diagnosis: cervical spine Condition on Discharge: Fair Activity: Resume your previous activity Non-emergency contact: Primary Care Provider Call non-emergency contact if: you have any medication questions Follow-up/Referrals: Sharon Martínez MD [Primary Care Provider] - Diet: Regular Addtl Attending Provider Instructions: ACTIVITY RECOMMENDATIONS: SELF CARE INSTRUCTIONS AFTER CERVICAL FUSIONS 1. No smoking. Smoking drastically decreases the chance of a solid fusion. 2. No bending, lifting more than 5 pounds, or twisting (roll like a log when turning in bed). 3. You may shower 3 days after surgery. Thoroughly dry wound. Do not soak in the tub. 4. Cervical collar: Must be worn at all times including sleeping. You may remove the brace only to bath, eat and if you are sitting in a recliner. 5. Please walk as much as you can for exercise. Gradually increase the distance that you walk as your endurance increases. 6. You may return to previous diet. SPECIAL CARE INSTRUCTIONS: VERY IMPORTANT TO READ AND REVIEW A. Do not take any anti-inflammatory medications (i.e. Indocin, Advil, Aspirin, Naprosyn, Aleve, Motrin, etc.) as these may inhibit the chance of a solid fusion. Tylenol is okay to take. B. Your surgical incision has been closed with a cosmetic suture under the skin that will dissolve in about 6 weeks. In 14 days, you can use a pair of clean scissors and cut the suture that is left outside of the skin at the ends of your incision. C. Complications are uncommon, but please contact us if you have any signs or symptoms of: 1. wound infection (fever higher than 102.5 degrees F, redness, separation of wound, drainage, or increasing pain from the incision) 2. blood clots in legs (pain, swelling, redness and warmth in legs) 3. urinary tract infection (fever higher than 102.5 degrees, burning upon urination or increased frequency of urination) 4. nerve problems (inability to walk on your toes or heels, numbness, loss of bowel or bladder control) 5. any other symptoms that concern you. D. Please call the office at if you have any concerns or questions about your operation or recovery. MANAGING PAIN AFTER SPINAL SURGERY 1. Narcotic medication is intended for short-term use and will be provided for surgical pain. Surgical pain usually lasts for a period of 4-6 weeks. Narcotic medication includes Percocet, Vicodin, Darvocet, Tylenol #3 or Lortab. 2. Longer-term pain is more appropriately treated with non-narcotic medication such as Tylenol ES. 3. Muscle spasm is not appropriately treated with narcotics. Muscle relaxers such as Soma, Flexeril or Skelaxin can be used along with Tylenol ES. 4. Remember that we all live with some "aches and pains". This is not unusual or uncommon after an injury or as we get older. 5. We will provide appropriate medication within the normal guidelines of their prescribed use. We will also be very cautious and aware of potential abuse and extended duration of patients' medication needs. 6. Please allow 2-3 days to process refills. Prescriptions will not be mailed but must be picked up at the office. FOLLOW UP VISIT: Keep your scheduled follow-up appointment. Any questions, please call the office at . Pending Studies at Discharge: No Stand-Alone Forms: My [facility], Smoking Cessation Medications and DC Order Prescriptions: New amitriptyline 25 mg Tablet 25 mg PO DAILY Qty: 30 3RF gabapentin 300 mg Capsule 300 mg PO TID Qty: 90 3RF sucralfate 1 gram tablet 1 g PO ACHS 14 Days Qty: 56 0RF Continued Eliquis 5 mg tablet 5 mg PO BID Qty: 180 3RF atorvastatin 20 mg tablet 20 mg PO QPM Qty: 90 3RF amlodipine 5 mg tablet 5 mg PO QAM Qty: 90 3RF gabapentin 100 mg capsule 300 mg PO TID Discharge Orders: Discharge Order (Routine); Ordered 01/13/25 Ordered By: Donnie Bhatia Admission Data Admit Date/Time: 01/10/25 13:53 Attending Provider: Donnie Bhatia Admit Provider: Donnie Bhatia Primary Care Provider: Sharon Martínez Other Providers: Rico Batres George A Hospital Stay Data Consultations 01/10/25 13:16 Consult Orthopedic Spine Surgery Stat 01/10/25 13:25 ED Decision to Admit Stat Diagnostic Imagining Performed 01/10/25 08:36 CT cervical spine w con Stat CT thoracic spine w con Stat 01/10/25 11:11 MRI Cervical [MR cervical spine wo con] Stat 01/12/25 08:15 CT angio abdomen pelvis w con Stat CT for pulmonary embolism PE [CT angio chest PE protocol] Stat Pending Results Patient Have Any Pending Studies at Discharge: No Discharge Instructions Given to Patient (Per Discharging Provider) ACTIVITY RECOMMENDATIONS: SELF CARE INSTRUCTIONS AFTER CERVICAL FUSIONS 1. No smoking. Smoking drastically decreases the chance of a solid fusion. 2. No bending, lifting more than 5 pounds, or twisting (roll like a log when turning in bed). 3. You may shower 3 days after surgery. Thoroughly dry wound. Do not soak in the tub. 4. Cervical collar: Must be worn at all times including sleeping. You may remove the brace only to bath, eat and if you are sitting in a recliner. 5. Please walk as much as you can for exercise. Gradually increase the distance that you walk as your endurance increases. 6. You may return to previous diet. SPECIAL CARE INSTRUCTIONS: VERY IMPORTANT TO READ AND REVIEW A. Do not take any anti-inflammatory medications (i.e. Indocin, Advil, Aspirin, Naprosyn, Aleve, Motrin, etc.) as these may inhibit the chance of a solid fusion. Tylenol is okay to take. B. Your surgical incision has been closed with a cosmetic suture under the skin that will dissolve in about 6 weeks. In 14 days, you can use a pair of clean scissors and cut the suture that is left outside of the skin at the ends of your incision. C. Complications are uncommon, but please contact us if you have any signs or symptoms of: 1. wound infection (fever higher than 102.5 degrees F, redness, separation of wound, drainage, or increasing pain from the incision) 2. blood clots in legs (pain, swelling, redness and warmth in legs) 3. urinary tract infection (fever higher than 102.5 degrees, burning upon urination or increased frequency of urination) 4. nerve problems (inability to walk on your toes or heels, numbness, loss of bowel or bladder control) 5. any other symptoms that concern you. D. Please call the office at if you have any concerns or questions about your operation or recovery. MANAGING PAIN AFTER SPINAL SURGERY 1. Narcotic medication is intended for short-term use and will be provided for surgical pain. Surgical pain usually lasts for a period of 4-6 weeks. Narcotic medication includes Percocet, Vicodin, Darvocet, Tylenol #3 or Lortab. 2. Longer-term pain is more appropriately treated with non-narcotic medication such as Tylenol ES. 3. Muscle spasm is not appropriately treated with narcotics. Muscle relaxers such as Soma, Flexeril or Skelaxin can be used along with Tylenol ES. 4. Remember that we all live with some "aches and pains". This is not unusual or uncommon after an injury or as we get older. 5. We will provide appropriate medication within the normal guidelines of their prescribed use. We will also be very cautious and aware of potential abuse and extended duration of patients' medication needs. 6. Please allow 2-3 days to process refills. Prescriptions will not be mailed but must be picked up at the office. FOLLOW UP VISIT: Keep your scheduled follow-up appointment. Any questions, please call the office at . Coding Diagnoses Post-op pain G89.18 Hypertension I10 Dyslipidemia E78.5 Atrial fibrillation I48.91
--- NOTE | 2025-01-13 14:53 | Electrocardiogram Report ---
Test Reason : Blood Pressure : */* mmHG Vent. Rate : 78 BPM Atrial Rate : 78 BPM P-R Int : 160 ms QRS Dur : 98 ms QT Int : 402 ms P-R-T Axes : 57 49 36 degrees QTcB Int : 458 ms Normal sinus rhythm Left ventricular hypertrophy Abnormal ECG When compared with ECG of 10-Jan-2025 08:20, No significant change was found Confirmed by Mg Plummer ([id number]) on 01/13/2025 2:52:42 PM Referred By: REFERRED SELF Confirmed By: Mg Plummer
[2025-01-14] MEDS ORDERED: dexAMETHasone 8 MG in SYRINGE 0 ML IV SCH (09:00)
== END 2025-01-13 14:01 | disposition home or self-care (01) | DRG 948 ==
LOC: ED 07:58 → EDINP 13:53 → 3E 15:47